=== PATIENT | female | born 1960 | race Caucasian/White ===

== ENCOUNTER 2017-10-04 12:37 | Inpatient (IN) | payer OTHER, SELFPAY ==
[~2017-10-04 12:37] MED LIST: Heparin 1,000 UNITS/ML VIAL ONE
[2017-10-04 13:48] LABS: #Eosinphils 0.4 thou/uL (0.0-0.7); #Lymphocytes 1.2 thou/uL (1.20-3.40); #Monocytes 0.5 thou/uL (0.11-0.59); #Neutrophils 2.8 thou/uL (1.40-6.50); %Basophils 0.7 % (0.0-1.0); %Eosinophils 7.6 % (0.0-10.0); %Monocytes 10.7 % (0.0-10.0); %Neutrophils 56.9 % (42.0-75.0); Hemoglobin 7.5 g/dL (12.0-16.0); Mean Corpuscular HGB CONC 31.8 g/dL (32.0-36.0); Mean Corpuscular Hemoglobin 31.2 pg (27.0-31.0); Mean Corpuscular Volume 98.1 fl (81.0-99.0); Mean Platelet Volume 7.1 fL (7.4-10.4); Platelet Count 139 thou/uL (130-400); RBC Distribution Width 16.4 % (11.5-14.5); Red Blood Cell (RBC) Count 2.39 mill/uL (4.20-5.40)
[2017-10-04 14:07] LABS: ALT (SGPT) 19 U/L (8-55); AST (SGOT) 14 U/L (5-34); Albumin 2.8 g/dL (3.5-5.0); Alkaline Phosphatase 41 U/L (40-150); Anion Gap 16 mmol/L (10-20); BUN (Urea Nitrogen) 74 mg/dL (9.8-20.1); Bilirubin, Total 0.4 mg/dL (0.2-1.2); Calc. Creatinine Clearance 0 mL/min (70-130); Calcium 8.3 mg/dL (7.8-10.44); Carbon Dioxide 15 mmol/L (22-29); Chloride 112 mmol/L (98-107); Estimated GFR-MDRD 5; Globulin 2.8 g/dL (2.4-3.5); Glucose 81 mg/dL (70-105); Potassium 5.9 mmol/L (3.5-5.1); Protein, Total 5.6 g/dL (6.0-8.3); Sodium 137 mmol/L (136-145)
[2017-10-04 14:11] LABS: CKMB 0.9 ng/mL (0-6.6); Troponin I 0.012 ng/mL (< 0.028)
[2017-10-04] MEDS ORDERED: Insulin Regular 300 UNITS/3 ML VIAL ONE (14:56)
[2017-10-04] MEDS ORDERED: Sodium Bicarb 50 MEQ/50 ML Abboject 8.4% SYRINGE ONE (14:56)
[2017-10-04] MEDS ORDERED: Calcium Chloride 1 GM/10 ML Abboject SYRINGE ONE ×2 (14:56→14:58)
[2017-10-04] MEDS ORDERED: Dextrose 50% Abboject 50 ML SYRINGE ONE (14:56)
[2017-10-04] MEDS ORDERED: Furosemide 40 MG/4 ML VIAL ONE (14:56)
[2017-10-04] MEDS ORDERED: CEFAZOLIN/Water 2 GM/20 ML SYRINGE SLOW IVP SCH (16:00)
--- NOTE | 2017-10-04 16:04 | HP ---
PRIMARY CARE PHYSICIAN: [facility]. REASON FOR ADMISSION: Acute on chronic kidney failure approach to end-stage renal disease, hyperkale gab. HISTORY OF PRESENT ILLNESS: A 57-year-old [place] female who has history of chronic kidney disease, h ypertension, and hypothyroidism who was recently admitted in [facility] in [facility] for worsening of kidney failure. At that time, patient had hyponatremia. She was treated with some hypertonic saline as wel l as tolvaptan therapy and her sodium was improved. Her renal function is running between 7-8 range. She was started on oral medication including sodium bicarbonate and other blood pressure medication as well as Renvela. Patient also has hospitalization there and required blood transfusion. At that time, the patient's c ondition was so severe, so she remained in hospital for several days and her trip back to [facility] was pos tponed. Once she little bit recovered from her condition, she flew back to [facility]. When she arrived here, she was feeling a little bit better, but she started feeling nausea. She was started feeling increasing edema and she was having itching. Her sleep is normal. She does not have any shortness of breath, but she feels fatigued, tired. She denies any chest pain, palpitation, diz ziness. She denies any orthopnea or PND. She denies any cough. She denies any fever or chills. Sh e denies any UTI symptoms. She denies any constipation, diarrhea, melena or hematochezia. Patient is taking all prescribed medication from [facility] regularly. She denies any excessive per potas sium food as well. The patient made appointment with Dr. Elizalde last week and that she had routine blood test done which s howed elevated potassium and elevated creatinine. She had another blood test yesterday and her potas sium was found with a 6.2 and her hemoglobin was also low and that is why Dr. Elizalde called her to come to the emergency room for admission. Today in our emergency room, patient's hemoglobin is 7.5, creatinine is 8.43, and potassium 5.9. Her BNP is 1347. Patient is being admitted for acute on chronic kidney failure and hyperkalemia. REVIEW OF SYSTEMS: The following complete review of systems was negative, unless otherwise mentioned in the HPI or below: Constitutional: Weight loss or gain, ability to conduct usual activities. Sk in: Rash, itching. Eyes: Double vision, pain. ENT/Mouth: Nose bleeding, neck stiffness, pain, te nderness. Cardiovascular: Palpitations, dyspnea on exertion, orthopnea. Respiratory: Shortness of breath, wheezing, cough, hemoptysis, fever or night sweats. Gastrointestinal: Poor appetite, abdom inal pain, heartburn, nausea, vomiting, constipation, or diarrhea. Genitourinary: Urgency, frequenc y, dysuria, nocturia. Musculoskeletal: Pain, swelling. Neurologic/Psychiatric: Anxiety, depressio n. Allergy/Immunologic: Skin rash, bleeding tendency. Please see my HPI for pertinent positive and negative. All other review of system reviewed and negat ryan except as mentioned in the HPI. Notably, patient is complaining of back pain, edema and generali zed weakness. PAST MEDICAL HISTORY: Chronic kidney failure, baseline chronic kidney disease stage 4, hypertension, hypothyroidism. PAST SURGICAL HISTORY: Hysterectomy and appendicectomy. PAST PSYCHIATRIC HISTORY: Reviewed and negative. SOCIAL HISTORY: Patient is . She lives at her daughter's home. She denies any tobacco, alco hol or illicit drug abuse. FAMILY HISTORY: No strong family history of premature coronary artery disease, stroke or cancer. No family history of ESRD. ALLERGIES: No known drug allergy. CURRENT HOME MEDICATIONS: Sodium bicarbonate 500 mg 3 times daily, metoprolol tartrate 50 mg daily, domperidone one tablet twice daily, Lasix 40 mg b.i.d., Renvela 800 mg t.i.d., cilnidipine 10 mg twic e daily, and Synthroid 125 mcg p.o. daily. EMERGENCY ROOM COURSE: Patient has received sodium bicarbonate 1 ampule, Lasix 40 mg, dextrose 50% o ne ampule, calcium gluconate 1 ampule and Humulin R 10 units. PHYSICAL EXAMINATION: VITAL SIGNS: On arrival, blood pressure 157/63, pulse 58, respiratory rate 18, temperature 97.8, sat uration 98% on room air, weight 63.5 kilograms. GENERAL: Patient is currently alert, awake, no obvious acute distress. Appears weak. HEAD: Normocephalic, atraumatic. Eyes: Pupils round, reactive to light. Extraocular muscle intact . Pale conjunctivae. ENT: Pale mucous membranes. No oral lesion, no pharyngeal erythema, no exudate. NECK: Supple, no JVD, no thyromegaly, no carotid bruit, no jugular venous distention. LUNGS: Clear to auscultation, no obvious rhonchi or rales though air entry reduced at base. CARDIAC: S1, S2 appears regular, soft systolic murmur noted, no gallop, no rub. ABDOMEN: Soft, bowel sounds present, nontender, nondistended. No organomegaly, no mass, no suprapub ic tenderness. BACK: Unremarkable, no CVA tenderness. EXTREMITIES: Upper extremity passive movement of all joints are normal. Lower extremity, bilateral pitting edema noted. Good distal pulsation. SKIN: No skin rash. HEMATOLOGICAL: No lymphadenopathy. PSYCHIATRIC: Normal affect. NEUROLOGIC: The patient is alert, oriented x3. Cranial nerves II-XII intact. Motor and sensation w ithin normal limits. No focal neurological deficit noted. SIGNIFICANT LABORATORY DATA: EKG showing sinus bradycardia. Chest x-ray will be ordered. ASSESSMENT AND PLAN: 1. Acute on chronic kidney failure, baseline chronic kidney disease stage 4, now approach to end-sta ge renal disease and associated with metabolic acidosis, hyperkalemia, and anemia of renal disease an d secondary hyperparathyroidism of renal origin. I spoke with Dr. Elizalde initiating dialysis. Dr. Leonel martines will be notified for temporary hemodialysis catheter placement and the patient will need initiati on of hemodialysis. human resources communications manager will be consulted to arrange outpatient hemodialysis. Hemodialysis , they will defer to Nephrology. The patient will need AV fistula before discharge, we will continue with Procrit with hemodialysis. We will also continue with Nephro-George one tablet p.o. daily and Re nvela 800 mg 3 times daily. We will check phosphorus, PTH level, urinalysis, urine sodium, creatinin e, urine protein as well as an ultrasound kidney. Nephrology will be consulted and will closely faina mcdaniel on telemetry floor. Once stabilized, then will consider transferring her to medical floor until she has outpatient hemodialysis arranged. 2. Anemia of renal disease. We will continue with Nephro-George one tablet p.o. daily along with ferr ous sulfate 325 mg p.o. daily and Procrit with hemodialysis. 3. Secondary hyperparathyroidism of renal origin. We will continue Renvela 800 mg 3 times daily. W e will check phosphorus level and PTH level. We will also check vitamin D level. 4. Metabolic acidosis due to renal failure. Patient is currently on sodium bicarbonate, which will continue while in hospital. Currently, patient is started on dialysis and that is why she may not ne ed sodium bicarbonate eventually. 5. Hyperkalemia due to metabolic acidosis and poor excretion from kidney disease. The patient simone back received a cocktail treatment for hyperkalemia in the emergency room. We will avoid potassium bisi d and patient will need dialysis. 6. Elevated BNP. We will obtain echocardiography and will do serial cardiac enzymes x3 to rule out acute coronary syndrome. 7. Hypothyroidism. We will continue Synthroid 125 mcg p.o. daily and we will check TSH tomorrow. 8. Hypertension. We will continue metoprolol 25 mg p.o. b.i.d. We will monitor on telemetry floor for any bradycardia. 9. Deep venous thrombosis prophylaxis. Heparin 5000 units subcu twice daily. 10. Gastrointestinal prophylaxis, Protonix 40 mg p.o. daily, Reglan p.r.n. basis for nausea. 11. Code status: The patient is FULL CODE. Patient's is surrogate decision maker. Disposition plan based on clinical course, we are expecting patient's stay in hospital more than 2 mi dnights. Plan of care discussed with the patient and patient's family member at bedside.
[2017-10-04 16:26] LABS: Phosphorus 7.4 mg/dL (2.3-4.7)
[2017-10-04 16:57] LABS: Ferritin 197.7 ng/mL (10-291)
[2017-10-04 16:58] LABS: Thyroid Stimulating Hormone 0.112 uIU/mL (0.35-4.94); Vitamin D, 25 Hydroxy 9.9 ng/ml (> 30.0)
[2017-10-04] MEDS ORDERED: Epoetin (ESRD) 10,000 UNITS/ML VIAL IVP SCH (17:00)
[2017-10-04] MEDS ORDERED: Ondansetron ODT 4 MG TAB PO PRN (17:59)
[2017-10-04] MEDS ORDERED: Mag-Al 1200 mg/1200 mg/30 ML UDCUP PO PRN (17:59)
[2017-10-04] MEDS ORDERED: Calcium Carbonate 500 MG ChewTAB PO PRN (17:59)
[2017-10-04] MEDS ORDERED: Metoclopramide HCl 10 MG TAB PO PRN (17:59)
[2017-10-04] MEDS ORDERED: Diabetic Tussin 200 MG/10 ML UDCUP PO PRN (17:59)
[2017-10-04] MEDS ORDERED: Ondansetron HCl/PF 4 MG/2 ML Vial IVP PRN (17:59)
[2017-10-04] MEDS ORDERED: Senokot 8.6 MG TAB PO PRN (17:59)
[2017-10-04] MEDS ORDERED: Zolpidem Tartrate 5 MG TAB PO PRN (17:59)
[2017-10-04] MEDS ORDERED: Loperamide HCl 2 MG CAP PO PRN (17:59)
[2017-10-04] MEDS ORDERED: Milk Of Magnesia 30 ML UDCUP PO PRN (17:59)
[2017-10-04] MEDS ORDERED: Acetaminophen 325 MG TAB PO PRN (17:59)
[2017-10-04] MEDS ORDERED: Loratadine 10 MG TAB PO PRN (17:59)
[2017-10-04] MEDS ORDERED: Eucerin (Mineral Oil/Petrolatum,White) 30 gm Jar TOP PRN (17:59)
[2017-10-04] MEDS ORDERED: Chloraseptic Spray 180 ml Bottle PO PRN (17:59)
[2017-10-04] MEDS ORDERED: hydrALAZINE 20 MG/ML VIAL SLOW IVP PRN (17:59)
[2017-10-04] MEDS ORDERED: Sodium Chloride 0.65% Nasal 44 ML BOT EA NARE PRN (17:59)
[2017-10-04] MEDS ORDERED: Artificial Tears 18 DROP/0.9 ML EA EYE PRN (17:59)
[2017-10-04] MEDS ORDERED: Epoetin (ESRD) 10,000 UNITS/ML VIAL SC SCH (18:15)
[2017-10-04] MEDS ORDERED: Sevelamer Carbonate 800 MG TAB PO SCH (18:15)
[2017-10-04 18:21] LABS: Hep B Core Total Ab Non-Reactive (NonReactive); Hep B Core Total Index 0.15 S/CO (0-0.79)
[2017-10-04 18:26] LABS: HBSAg Index 0.24 S/CO (0-0.99); Hep B Surf Ag Non-Reactive S/CO (NonReactive)
[2017-10-04 18:27] LABS: Hep C IgG Ab Non-Reactive (NonReactive); Hep C Index 0.14 S/CO (0-0.79)
[2017-10-04 19:06] LABS: HBSAB Concentration 562.86 mIU/mL; Hep B Surf AB Reactive (NonReactive)
--- NOTE | 2017-10-04 21:23 | OP ---
PREOPERATIVE DIAGNOSES: End-stage renal disease, hyperkalemia, need of dialysis access. POSTOPERATIVE DIAGNOSES: End-stage renal disease, hyperkalemia, need of dialysis access. PROCEDURE: Right femoral vein hemodialysis catheter, Trialysis. SURGEON: Delbert Padilla M.D. ANESTHESIA: 1% Xylocaine. PROCEDURE: At the patient's bedside in the emergency room, right groin clipped of hair, prepared wit h ChloraPrep, draped in routine fashion. 1% Xylocaine infiltrated into skin and subcutaneous tissue about the operative site. Trocar catheter cannulated the femoral vein. J-wire threaded, trocar cath eter removed, skin incised and enlarged sharply. Dilator small and medium placed and removed, and di stal port of the Trialysis catheter placed over the J-wire into the inferior vena cava and J-wire rem delmi. Catheter secured with 2 sutures of 3-0 nylon. Sterile dressing applied. Each port aspirated blood and flushed with heparinized saline solution.
--- NOTE | 2017-10-04 21:30 | CON ---
DATE OF CONSULTATION: 10/04/2017 NEPHROLOGY CONSULT REASON FOR CONSULTATION: The patient has hyperkalemia. HISTORY OF PRESENT ILLNESS: This is a very pleasant 57-year-old female with a history of CKD stage 5 for more than 2 years, presented to the hospital with increasing uremia, nausea and vomiting. The p atient's baseline creatinine was 5 and has increased to 8 with a potassium of 6.1, so dialysis was ad vised the patient plan to start dialysis. The patient has had chronic nausea and vomiting, and very poor appetite and has been losing weight. The patient denies any headache, numbness, tingling or wea kness. PAST MEDICAL HISTORY: Significant for hypertension, diabetes mellitus, chronic kidney disease stage 5, hyperlipidemia, hysterectomy, appendectomy, history of hypothyroidism. SOCIAL HISTORY: No alcohol or drug use. FAMILY HISTORY: Negative ESRD. ALLERGIES: Reviewed. HOSPITAL MEDICATIONS: List reviewed. REVIEW OF SYSTEMS: Fifteen point review of systems was performed and negative except as noted above. GENERAL: Weakness- HEAD: Headache- NECK: No swelling or lumps. NOSE: No epistaxis or discharge. EYES: No diplopia or pain. RESPIRATORY: Dyspnea- CARDIOVASCULAR: Chest pain- GASTROINTESTINAL: Nausea- /PERSONNEL MONITOR: Hematuria- MUSCULOSKELETAL: No joint pain. NEUROPSYCHIATRIC SYSTEMS: No suicidal ideation. No ideation. SKIN: Denies any rash or ulcer. CONSTITUTIONAL: No fever or chills. PHYSICAL EXAMINATION: GENERAL: Patient is awake, alert. VITAL SIGNS: Afebrile, pulse 70, breathing 16, blood pressure 170/90. GENERAL APPEARANCE AND MENTAL STATUS: Fair. HEAD/NECK: Normocephalic. Atraumatic. EYES: EOMI. No deformity. EARS: Clear. No ulcers. NOSE: Intact. No lesions. MOUTH: Clear. No discharge. THROAT: Clear. No exudate. LUNGS: Clear. No crackles. CARDIAC: S1, S2. No rub. ABDOMEN: Benign. BS+. GENITALIA/RECTUM: Tilley absent. BACK/EXTREMITIES: Edema 0+ Ulcer- NEUROLOGICAL: Alert and motor intact. SKIN: Rash- Bruise- LYMPHATICS: Edema- Ulcer- LABORATORY: Show hemoglobin 7.5, potassium 5.9, bicarbonate 15. ASSESSMENT AND RECOMMENDATIONS: 1. Stage 5 chronic kidney disease with estimated GFR 5 mL per minute with uremia, nausea, vomiting, acidosis and hyperkalemia. We will plan urgent dialysis catheter will be placed. 2. Anemia, plan transfusion. 3. Hypertension, plan ultrafiltration. Overall, prognosis is poor. Risks versus benefits of dialys is were discussed with the patient and all questions were answered.
[2017-10-04] MEDS: Heparin 5,000 UNITS/ML VIAL SC SCH (21:37)
[2017-10-04] MEDS: Metoprolol Tartrate 25 MG TAB PO SCH (21:37)
--- NOTE | 2017-10-04 22:02 | HP ---
HISTORY OF PRESENT ILLNESS: Pauline Harrison is a 57-year-old female, non-Czech speaking, [place] an d has had known chronic kidney disease, followed by Dr. Elizalde. She saw Dr. Elizalde in the office today. He is in the emergency room to initiate dialysis. Potassium 6.1, hemoglobin 7. Plan is to place a temporary hemodialysis catheter today, initiate dialysis. She has an IV in her left hand. We will o rder no IVs or blood draws in her arms. All blood draws through her central line groin Trialysis cat heter. Plan on Saturday, placement of hemodialysis catheter, cuffed tunnel, possible central line, rig ht or left arm fistula pending vein mapping. ALLERGIES: None. TOBACCO: None. ALCOHOL: None. MEDICATIONS: List not available. Daughter does not recall. PAST MEDICAL HISTORY: Hypertension, chronic kidney disease. PAST SURGICAL HISTORY: Appendectomy, hysterectomy and bilateral salpingo-oophorectomy. She has neve r had a colonoscopy, never has had a mammography. Note, Dr. Elizalde saw her 2 years ago urged considera tion for fistula placement, but due to her insurance financial reasons, she was noncompliant. PHYSICAL EXAMINATION: VITAL SIGNS: Blood pressure 150/70, respiratory rate 18. LUNGS: Clear to auscultation. CARDIAC: Regular rate and rhythm without murmur or gallop. ABDOMEN: Soft, nontender. EXTREMITIES: Palpable radial pulses. IV left hand. LABORATORY DATA: White count 5, hemoglobin 7.5. Basic metabolic profile normal. BNP 1347. ASSESSMENT AND PLAN: End-stage renal disease. We will plan placement of a temporary dialysis cathet er today in the right groin. We will plan placement of a definitive cuffed tunnel dialysis catheter from central line on Saturday along with the fistula pending vein mapping. Risks and benefits explaine d. Questions answered.
--- NOTE | 2017-10-04 22:24 | RAD ---
CHEST TWO VIEW 10/04/17 HISTORY: Dyspnea. COMPARISON: Chest radiograph 01/04/17. FINDINGS: Heart size at upper limits of normal. No pneumothorax. No focal air space consolidation. No acute osseous abnormality. IMPRESSION: Heart size upper limits normal. POS: [facility]
[2017-10-05 01:43] LABS: Bilirubin Negative (Negative); Blood, Urine Small (Negative); Clarity CLEAR (Clear); Glucose, Urine (Dipstick) 250 mg/dL (Negative); Leukocyte Negative (Negative); Nitrite Negative (Negative); Protein, Urine (Dipstick) 300 mg/dL (Neg-Trace); Specific Gravity, Urine 1.008 (1.002-1.036); Urobilinogen 0.2 mg/dL (0.2-1.0); pH, Urine 7.5 (5.0-9.0)
[2017-10-05 01:46] LABS: Bacteria/HPF None Seen HPF (None Seen); Hyaline Casts/LPF 0-3 HYALINE CAST LPF (0-3 Hyaline); RBC/HPF 0-3 HPF (0-3); Squamous Epithelial 0-3 HPF (0-3); WBC/HPF 0-3 HPF (0-3)
[2017-10-05 02:00] LABS: Sodium, Urine 91 mmol/L (Not Available)
[2017-10-05 02:14] LABS: Protein, Urine Random Quant 238 mg/dL
[2017-10-05 05:33] LABS: ALT (SGPT) 16 U/L (8-55); AST (SGOT) 14 U/L (5-34); Albumin 2.6 g/dL (3.5-5.0); Alkaline Phosphatase 41 U/L (40-150); Anion Gap 11 mmol/L (10-20); BUN (Urea Nitrogen) 50 mg/dL (9.8-20.1); Bilirubin, Total 0.5 mg/dL (0.2-1.2); Calc. Creatinine Clearance 11 mL/min (70-130); Calcium 8.5 mg/dL (7.8-10.44); Carbon Dioxide 26 mmol/L (22-29); Cardiac Risk 3.1 (Less than 4.5); Chloride 109 mmol/L (98-107); Cholesterol 114 mg/dl (< 200 Desired); Estimated GFR-MDRD 8; Globulin 2.5 g/dL (2.4-3.5); Glucose 135 mg/dL (70-105); HDL Cholesterol 37 mg/dL (>60 Neg Risk); LDL Cholesterol, Calculated 62 mg/dL; Potassium 4.7 mmol/L (3.5-5.1); Protein, Total 5.1 g/dL (6.0-8.3); Sodium 141 mmol/L (136-145); Triglycerides 76 mg/dL (Less than 150)
[2017-10-05] MEDS: Levothyroxine Sodium 125 MCG TAB PO SCH (05:36)
[2017-10-05 06:16] LABS: #Eosinphils 0.1 thou/uL (0.0-0.7); #Lymphocytes 1.2 thou/uL (1.20-3.40); #Monocytes 0.6 thou/uL (0.11-0.59); #Neutrophils 2.8 thou/uL (1.40-6.50); %Basophils 0.5 % (0.0-1.0); %Eosinophils 2.3 % (0.0-10.0); %Lymphocytes 24.9 % (21.0-51.0); %Monocytes 12.2 % (0.0-10.0); %Neutrophils 60.1 % (42.0-75.0); Hemoglobin 8.3 g/dL (12.0-16.0); Mean Corpuscular HGB CONC 32.9 g/dL (32.0-36.0); Mean Corpuscular Hemoglobin 30.3 pg (27.0-31.0); Mean Corpuscular Volume 92.2 fl (81.0-99.0); Mean Platelet Volume 7.2 fL (7.4-10.4); Platelet Count 120 thou/uL (130-400); RBC Distribution Width 15.7 % (11.5-14.5); Red Blood Cell (RBC) Count 2.73 mill/uL (4.20-5.40); White Blood Cell (WBC) Count 4.6 thou/uL (4.8-10.8)
[2017-10-05 08:01] LABS: Free T4 (Free Thyroxine) 0.89 ng/dL (0.70-1.48)
[2017-10-05] MEDS ORDERED: Prevnar 13-Val Conj/PF 0.5 ML SYRINGE IM ONE (09:00)
--- NOTE | 2017-10-05 09:16 | PDOC.PN ---
- Subjective Encounter Start Date: 10/05/17 Encounter Start Time: 07:30 -: old records requested/rev Patient seen and examined for ESRD. No new complaints. No overnight events - Objective Resuscitation Status: Resuscitation Status FULL:Full Resuscitation MAR Reviewed: Yes Vital Signs & Weight: Vital Signs (12 hours) Temp Pulse Resp BP Pulse Ox 10/05/17 07:23 98.3 F 69 12 164/76 H 95 10/05/17 03:57 98.3 F 68 18 152/84 H 96 10/04/17 23:42 98.3 F 75 20 168/79 H 99 10/04/17 21:35 97.5 F L 68 18 165/79 H 100 Weight Weight 133 lb I&O: 10/04/17 10/05/17 10/06/17 06:59 06:59 06:59 Intake Total 830 Output Total 1100 Balance -270 Result Diagrams: 10/05/17 04:20 10/05/17 04:20 Radiology Reviewed by me: Yes EKG Reviewed by me: Yes (nsr) Phys Exam - Physical Examination Constitutional: NAD HEENT: PERRLA, moist MMs, sclera anicteric Neck: no JVD, supple Respiratory: no wheezing, no rales, no rhonchi Cardiovascular: RRR, no significant murmur, no rub Gastrointestinal: soft, non-tender, no distention, positive bowel sounds Musculoskeletal: no edema, pulses present Neurological: non-focal, normal sensation, moves all 4 limbs Lymphatic: no nodes Psychiatric: normal affect, A&O x 3 Skin: no rash, normal turgor Dx/Plan (1) Acute worsening of stage 4 chronic kidney disease Code(s): N28.9 - DISORDER OF KIDNEY AND URETER, UNSPECIFIED; N18.4 - CHRONIC KIDNEY DISEASE, STAGE 4 (SEVERE) Status: Acute (2) Elevated brain natriuretic peptide (BNP) level Code(s): R79.89 - OTHER SPECIFIED ABNORMAL FINDINGS OF BLOOD CHEMISTRY Status : Acute (3) Hyperkalemia, diminished renal excretion Code(s): E87.5 - HYPERKALEMIA Status: Acute (4) Hypoalbuminemia Code(s): E88.09 - OTH DISORDERS OF PLASMA-PROTEIN METABOLISM, NEC Status: Acute (5) Metabolic acidosis Code(s): E87.2 - ACIDOSIS Status: Acute (6) Nephrotic range proteinuria Code(s): R80.9 - PROTEINURIA, UNSPECIFIED Status: Acute (7) Vitamin D deficiency Code(s): E55.9 - VITAMIN D DEFICIENCY, UNSPECIFIED Status: Acute (8) Anemia of renal disease Code(s): D63.1 - ANEMIA IN CHRONIC KIDNEY DISEASE Status: Chronic (9) Hypertension Code(s): I10 - ESSENTIAL (PRIMARY) HYPERTENSION Status: Chronic (10) Hypothyroidism Code(s): E03.9 - HYPOTHYROIDISM, UNSPECIFIED Status: Chronic (11) Secondary hyperparathyroidism of renal origin Code(s): N25.81 - SECONDARY HYPERPARATHYROIDISM OF RENAL ORIGIN Status: Chronic - Plan cont current plan of care, plan discussed w/ family * s/p HD after temporary HD catheter placement * tunneled HD catheter and AV fistula placement on saturday * HD as per nephrology * add calcitriol * T3 and T4 is OK, TSH is low, will need repeat testing after discharge * social work for outpt HD arrangement * echo today * medication reviewed as below * symptomatic treatment * discussed with family. Review of Systems - Review of Systems Eyes: negative: Pain, Vision Change, Conjunctivae Inflammation, Eyelid Inflammation, Redness, Other ENT: negative: Ear Pain, Ear Discharge, Nose Pain, Nose Discharge, Nose Congestion, Mouth Pain, Mouth Swelling, Throat Pain, Throat Swelling, Other Respiratory: negative: Cough, Dry, Shortness of Breath, Hemoptysis, SOB with Excertion, Pleuritic Pain, Sputum, Wheezing Cardiovascular: negative: chest pain, palpitations, orthopnea, paroxysmal nocturnal dyspnea, edema, light headedness, other Gastrointestinal: negative: Nausea, Vomiting, Abdominal Pain, Diarrhea, Constipation, Melena, Hematochezia, Other Genitourinary: negative: Dysuria, Frequency, Incontinence, Hematuria, Retention , Other Musculoskeletal: negative: Neck Pain, Shoulder Pain, Arm Pain, Back Pain, Hand Pain, Leg Pain, Foot Pain, Other Skin: negative: Rash, Lesions, Parker, Bruising, Other - Medications/Allergies Allergies/Adverse Reactions: Allergies Allergy/AdvReac Type Severity Reaction Status Date / Time No Known Allergies Allergy Unverified 10/04/17 16:16 Medications: Current Medications Acetaminophen (Tylenol) 650 mg PO Q4H PRN PRN Reason: Headache/Fever or Pain Hydrocodone Bitart/Acetaminophen ([place] 5/325) 1 tab PO Q4H PRN PRN Reason: Moderate Pain (4-6) Al Hydroxide/Mg Hydroxide (Maalox) 30 ml PO Q6H PRN PRN Reason: Heartburn or Indigestion Artificial Tears (Tears Naturale) 0 drop EA EYE PRN PRN PRN Reason: Dry Eyes Calcitriol (Rocaltrol) 0.25 mcg PO DAILY [facility] Calcium Carbonate (Tums) 1,000 mg PO Q4H PRN PRN Reason: Heartburn or Indigestion Cefazolin Sodium (Ancef) 2 gm SLOW IVP ONCALL-OR [facility] Stop: 10/05/17 16:01 Ferrous Sulfate (Feosol) 325 mg PO QAM-WM [facility] Guaifenesin (Robitussin Sf) 200 mg PO Q4H PRN PRN Reason: Cough Heparin Sodium (Porcine) (Heparin) 5,000 units SC BID [facility] Last Admin: 10/04/17 21:37 Dose: 5,000 units Hydralazine HCl (Apresoline) 10 mg SLOW IVP Q4H PRN PRN Reason: Systolic BP > 180 Levothyroxine Sodium (Synthroid) 125 mcg PO 0600 [facility] Last Admin: 10/05/17 05:36 Dose: 125 mcg Loperamide HCl (Imodium) 2 mg PO PRN PRN PRN Reason: Diarrhea/Loose Stools Loratadine (Claritin) 10 mg PO DAILYPRN PRN PRN Reason: Sinus Symptoms Magnesium Hydroxide (Milk Of Magnesium) 30 ml PO DAILYPRN PRN PRN Reason: Constipation Metoclopramide HCl (Reglan) 10 mg PO ACHS PRN PRN Reason: Nausea Metoprolol Tartrate (Lopressor) 25 mg PO BID [facility] Last Admin: 10/04/17 21:37 Dose: 25 mg Mineral Oil/White Petrolatum (Eucerin Cream) 0 gm TOP BIDPRN PRN PRN Reason: Dry Skin Ondansetron HCl (Zofran Odt) 4 mg PO Q6H PRN PRN Reason: Nausea/Vomiting Ondansetron HCl (Zofran) 4 mg IVP Q6H PRN PRN Reason: Nausea/Vomiting Pantoprazole Sodium (Protonix) 40 mg PO DAILY [facility] Phenol (Chloraseptic [place] 180 Ml Bot) 0 ml PO PRN PRN PRN Reason: Sore Throat Senna (Senokot) 2 tab PO HSPRN PRN PRN Reason: Constipation Sevelamer Carbonate (Renvela) 800 mg PO TID-WM [facility] Sodium Chloride ([place] Nasal [place] 0.65%) 0 ml EA NARE QIDPRN PRN PRN Reason: Nasal Congestion Vitamin B Complex/Vit C/Folic Acid (Nephro-George Tablet) 1 tab PO DAILY [facility] Zolpidem Tartrate (Ambien) 5 mg PO HSPRN PRN PRN Reason: Insomnia
--- NOTE | 2017-10-05 09:18 | ULT ---
RENAL SONOGRAM: HISTORY: End stage renal disease. FINDINGS: The right kidney is 9.1 cm and contains multiple cysts measuring up to 2.2 cm. No hydronephrosis or solid mass. Left kidney is 9.3 cm and also contains cortical cysts measuring up to 2.6 cm. No solid mass or hydronephrosis. Urinary bladder unremarkable. IMPRESSION: Renal cysts. No evidence of urinary tract obstruction. POS: [facility]
--- NOTE | 2017-10-05 10:02 | ULT ---
VENOUS DUPLEX SONOGRAM BILATERAL UPPER EXTREMITIES FOR VEIN MAPPING. HISTORY: Renal failure. Need for hemodialysis access. FINDINGS: Each internal jugular and subclavian vein were evaluated along with each subclavian, axillary, brachi al, cephalic, and basilic vein. Good color and spectral Doppler flow. Measurements are as follows: RIGHT: VESSEL Brachial artery 4 mm Radial artery 2 mm Ulnar artery 2 mm Cephalic Vein: Proximal humerus 1 mm Mid humerus 1 mm Distal humerus 1 mm Antecubital fossa 2 mm Proximal forearm 1 mm Mid forearm 1 mm Distal forearm 2 mm Basilic Vein: Proximal humerus 4 mm Mid humerus 2 mm Distal humerus 2 mm Antecubital fossa 1 mm Proximal forearm, mid and distal forearm not seen. LEFT: VESSEL: Brachial artery 4 mm Radial artery 2 mm Ulnar artery 1 mm Cephalic Vein: Proximal humerus 2 mm Mid humerus 2 mm Distal humerus 2 mm Antecubital fossa 2 mm Proximal forearm 2 mm Mid forearm 2 mm Distal forearm 1 mm Basilic Vein: Proximal humerus 4 mm Mid humerus 3 mm Distal humerus 3 mm Antecubital fossa 3 mm Proximal forearm 2 mm Mid forearm and distal forearm not seen. IMPRESSION: Patent vascular structures within each upper extremity, with venous measurements as detailed above. POS: [facility]
[2017-10-05] MEDS ORDERED: Tuberculin PPD 0.1 ML VIAL I-DERMAL SCH (12:00)
[2017-10-05] MEDS: Sevelamer Carbonate 800 MG TAB PO SCH ×3 (12:11→19:30)
[2017-10-05] MEDS: Metoprolol Tartrate 25 MG TAB PO SCH ×2 (12:49→21:03)
[2017-10-05] MEDS: Calcitriol 0.25 MCG CAP PO SCH (12:49)
--- NOTE | 2017-10-05 12:49 | PRG ---
DATE OF SERVICE: 10/05/2017 SUBJECTIVE: A 57-year-old female being seen for end-stage renal disease. The patient denies any nausea, vomiting or chest pain. PHYSICAL EXAMINATION: GENERAL: Patient is awake, alert. VITAL SIGNS: Afebrile, pulse 60, breathing at 16, blood pressure 152/80. GENERAL APPEARANCE AND MENTAL STATUS: Fair. HEAD/NECK: Normocephalic. Atraumatic. EYES: EOMI. No deformity. EARS: Clear. No ulcers. NOSE: Intact. No lesions. MOUTH: Clear. No discharge. THROAT: Clear. No exudate. LUNGS: Clear. No crackles. CARDIAC: S1, S2. No rub. ABDOMEN: Benign. BS+. GENITALIA/RECTUM: Tilley absent. BACK/EXTREMITIES: Edema 0+ Ulcer- NEUROLOGICAL: Alert and motor intact. SKIN: Rash- Bruise- LYMPHATICS: Edema- Ulcer- ASSESSMENT: 1. Anemia, status post transfusion, stable. 2. Hypertension, stable. 3. ESRD jane HD today. Discharge planning, outpatient dialysis workup has been initiated. JOSETTED
[2017-10-05] MEDS: Folic Acid/Vit B Comp W-C PO SCH (12:50)
[2017-10-05] MEDS: Heparin 5,000 UNITS/ML VIAL SC SCH ×2 (12:53→21:03)
[2017-10-05] MEDS: Ferrous Sulfate 325 MG TAB PO SCH (12:58)
[2017-10-06] MEDS: HYDROcodone/Acetaminophen 5/325 mg Tablet PO PRN (03:30)
[2017-10-06] MEDS: Levothyroxine Sodium 125 MCG TAB PO SCH (05:43)
[2017-10-06] MEDS ORDERED: hydrOXYzine 10 MG TAB PO PRN (06:13)
--- NOTE | 2017-10-06 08:29 | PDOC.PN ---
- Subjective Encounter Start Date: 10/06/17 Encounter Start Time: 07:00 Patient seen and examined ESRD. No new complaints. No overnight events - Objective Resuscitation Status: Resuscitation Status FULL:Full Resuscitation MAR Reviewed: Yes Vital Signs & Weight: Vital Signs (12 hours) Temp Pulse Resp BP Pulse Ox 10/06/17 03:41 98.3 F 67 18 156/73 H 97 10/06/17 00:00 98.4 F 71 19 159/74 H 99 Weight Admit Weight 133 lb 9.6 oz Weight 119 lb 14.903 oz I&O: 10/05/17 10/06/17 10/07/17 06:59 06:59 06:59 Intake Total 830 360 Output Total 1100 300 Balance -270 60 Result Diagrams: 10/05/17 04:20 10/05/17 04:20 EKG Reviewed by me: Yes (svt ) Phys Exam - Physical Examination Constitutional: NAD HEENT: PERRLA, moist MMs, sclera anicteric Neck: no JVD, supple Respiratory: no wheezing, no rales, no rhonchi Cardiovascular: RRR, no significant murmur, no rub Gastrointestinal: soft, non-tender, no distention, positive bowel sounds Musculoskeletal: no edema, pulses present right groin trilysis catheter Neurological: non-focal, normal sensation, moves all 4 limbs Psychiatric: normal affect, A&O x 3 Skin: no rash, normal turgor Dx/Plan (1) Acute worsening of stage 4 chronic kidney disease Code(s): N28.9 - DISORDER OF KIDNEY AND URETER, UNSPECIFIED; N18.4 - CHRONIC KIDNEY DISEASE, STAGE 4 (SEVERE) Status: Acute (2) Elevated brain natriuretic peptide (BNP) level Code(s): R79.89 - OTHER SPECIFIED ABNORMAL FINDINGS OF BLOOD CHEMISTRY Status : Acute (3) Hyperkalemia, diminished renal excretion Code(s): E87.5 - HYPERKALEMIA Status: Acute (4) Hypoalbuminemia Code(s): E88.09 - OTH DISORDERS OF PLASMA-PROTEIN METABOLISM, NEC Status: Acute (5) Metabolic acidosis Code(s): E87.2 - ACIDOSIS Status: Acute (6) Nephrotic range proteinuria Code(s): R80.9 - PROTEINURIA, UNSPECIFIED Status: Acute (7) Vitamin D deficiency Code(s): E55.9 - VITAMIN D DEFICIENCY, UNSPECIFIED Status: Acute (8) Anemia of renal disease Code(s): D63.1 - ANEMIA IN CHRONIC KIDNEY DISEASE Status: Chronic (9) Hypertension Code(s): I10 - ESSENTIAL (PRIMARY) HYPERTENSION Status: Chronic (10) Hypothyroidism Code(s): E03.9 - HYPOTHYROIDISM, UNSPECIFIED Status: Chronic (11) Secondary hyperparathyroidism of renal origin Code(s): N25.81 - SECONDARY HYPERPARATHYROIDISM OF RENAL ORIGIN Status: Chronic - Plan cont current plan of care, plan discussed w/ family, administrator social welfare * tomorrow tunneled HD catheter and AVF * HD as per nephrology * echo result pending * she had asymptomatic SVT * continue metoprolol * medication reviewed as below * symptomatic treatment * discussed with family. Review of Systems - Review of Systems Eyes: negative: Pain, Vision Change, Conjunctivae Inflammation, Eyelid Inflammation, Redness, Other ENT: negative: Ear Pain, Ear Discharge, Nose Pain, Nose Discharge, Nose Congestion, Mouth Pain, Mouth Swelling, Throat Pain, Throat Swelling, Other Respiratory: negative: Cough, Dry, Shortness of Breath, Hemoptysis, SOB with Excertion, Pleuritic Pain, Sputum, Wheezing Cardiovascular: negative: chest pain, palpitations, orthopnea, paroxysmal nocturnal dyspnea, edema, light headedness, other Gastrointestinal: negative: Nausea, Vomiting, Abdominal Pain, Diarrhea, Constipation, Melena, Hematochezia, Other Genitourinary: negative: Dysuria, Frequency, Incontinence, Hematuria, Retention , Other Musculoskeletal: negative: Neck Pain, Shoulder Pain, Arm Pain, Back Pain, Hand Pain, Leg Pain, Foot Pain, Other Skin: negative: Rash, Lesions, Parker, Bruising, Other - Medications/Allergies Allergies/Adverse Reactions: Allergies Allergy/AdvReac Type Severity Reaction Status Date / Time No Known Allergies Allergy Unverified 10/04/17 16:16 Medications: Current Medications Acetaminophen (Tylenol) 650 mg PO Q4H PRN PRN Reason: Headache/Fever or Pain Last Admin: 10/06/17 01:43 Dose: 650 mg Hydrocodone Bitart/Acetaminophen (Leopold 5/325) 1 tab PO Q4H PRN PRN Reason: Moderate Pain (4-6) Last Admin: 10/06/17 03:30 Dose: 1 tab Al Hydroxide/Mg Hydroxide (Maalox) 30 ml PO Q6H PRN PRN Reason: Heartburn or Indigestion Artificial Tears (Tears Naturale) 0 drop EA EYE PRN PRN PRN Reason: Dry Eyes Calcitriol (Rocaltrol) 0.25 mcg PO DAILY [facility] Last Admin: 10/05/17 12:49 Dose: 0.25 mcg Calcium Carbonate (Tums) 1,000 mg PO Q4H PRN PRN Reason: Heartburn or Indigestion Ferrous Sulfate (Feosol) 325 mg PO QAM-WM [facility] Last Admin: 10/05/17 12:58 Dose: 325 mg Guaifenesin (Robitussin Sf) 200 mg PO Q4H PRN PRN Reason: Cough Heparin Sodium (Porcine) (Heparin) 5,000 units SC BID [facility] Last Admin: 10/05/17 21:03 Dose: 5,000 units Hydralazine HCl (Apresoline) 10 mg SLOW IVP Q4H PRN PRN Reason: Systolic BP > 180 Hydroxyzine HCl (Atarax) 10 mg PO Q8H PRN PRN Reason: Itching Levothyroxine Sodium (Synthroid) 125 mcg PO 0600 [facility] Last Admin: 10/06/17 05:43 Dose: 125 mcg Loperamide HCl (Imodium) 2 mg PO PRN PRN PRN Reason: Diarrhea/Loose Stools Loratadine (Claritin) 10 mg PO DAILYPRN PRN PRN Reason: Sinus Symptoms Magnesium Hydroxide (Milk Of Magnesium) 30 ml PO DAILYPRN PRN PRN Reason: Constipation Metoclopramide HCl (Reglan) 10 mg PO ACHS PRN PRN Reason: Nausea Metoprolol Tartrate (Lopressor) 25 mg PO BID [facility] Last Admin: 10/05/17 21:03 Dose: 25 mg Mineral Oil/White Petrolatum (Eucerin Cream) 0 gm TOP BIDPRN PRN PRN Reason: Dry Skin Read Ppd Test Site 0 each PO 1200 [facility] Stop: 10/08/17 23:59 Ondansetron HCl (Zofran Odt) 4 mg PO Q6H PRN PRN Reason: Nausea/Vomiting Ondansetron HCl (Zofran) 4 mg IVP Q6H PRN PRN Reason: Nausea/Vomiting Pantoprazole Sodium (Protonix) 40 mg PO DAILY [facility] Last Admin: 10/05/17 12:50 Dose: 40 mg Phenol (Chloraseptic [place] 180 Ml Bot) 0 ml PO PRN PRN PRN Reason: Sore Throat Senna (Senokot) 2 tab PO HSPRN PRN PRN Reason: Constipation Sevelamer Carbonate (Renvela) 800 mg PO TID-[facility] Last Admin: 10/05/17 19:30 Dose: 800 mg Sodium Chloride (Leslie Nasal [place] 0.65%) 0 ml EA NARE QIDPRN PRN PRN Reason: Nasal Congestion Vitamin B Complex/Vit C/Folic Acid (Nephro-George Tablet) 1 tab PO DAILY [facility] Last Admin: 10/05/17 12:50 Dose: 1 tab Zolpidem Tartrate (Ambien) 5 mg PO HSPRN PRN PRN Reason: Insomnia
[2017-10-06] MEDS: Folic Acid/Vit B Comp W-C PO SCH (09:44)
[2017-10-06] MEDS: Calcitriol 0.25 MCG CAP PO SCH (09:44)
[2017-10-06] MEDS: Sevelamer Carbonate 800 MG TAB PO SCH ×3 (09:44→19:08)
[2017-10-06] MEDS: Ferrous Sulfate 325 MG TAB PO SCH (09:44)
[2017-10-06] MEDS: Metoprolol Tartrate 25 MG TAB PO SCH ×2 (09:45→20:34)
[2017-10-06] MEDS: Heparin 5,000 UNITS/ML VIAL SC SCH (09:45)
--- NOTE | 2017-10-06 12:47 | PRG ---
DATE OF SERVICE: 10/06/2017 SUBJECTIVE: This is a 57-year-old female being seen for end-stage renal disease. The patient denies any nausea, vomiting or chest pain. OBJECTIVE: GENERAL: Patient is awake, alert. VITAL SIGNS: Afebrile, pulse 68, breathing 16, blood pressure 132/67. GENERAL APPEARANCE AND MENTAL STATUS: Fair. HEAD/NECK: Normocephalic. Atraumatic. EYES: EOMI. No deformity. EARS: Clear. No ulcers. NOSE: Intact. No lesions. MOUTH: Clear. No discharge. THROAT: Clear. No exudate. LUNGS: Clear. No crackles. CARDIAC: S1, S2. No rub. ABDOMEN: Benign. BS+. GENITALIA/RECTUM: Tilley absent. BACK/EXTREMITIES: Edema 0+ Ulcer- NEUROLOGICAL: Alert and motor intact. SKIN: Rash- Bruise- LYMPHATICS: Edema- Ulcer- LABORATORY DATA: Show hemoglobin 8.3. ASSESSMENT AND RECOMMENDATIONS: 1. Stage 5 chronic kidney disease. Continue hemodialysis. 2. Hypertension, stable. 3. Anemia, stable. 4. Medication based on glomerular filtration rate appropriate.
[2017-10-07] MEDS: HYDROcodone/Acetaminophen 5/325 mg Tablet PO PRN (00:12)
[2017-10-07 05:40] LABS: Albumin 2.5 g/dL (3.5-5.0); Anion Gap 10 mmol/L (10-20); BUN (Urea Nitrogen) 41 mg/dL (9.8-20.1); Calc. Creatinine Clearance 11 mL/min (70-130); Calcium 8.6 mg/dL (7.8-10.44); Carbon Dioxide 25 mmol/L (22-29); Chloride 107 mmol/L (98-107); Estimated GFR-MDRD 9; Glucose 94 mg/dL (70-105); Phosphorus 4.5 mg/dL (2.3-4.7); Potassium 4.7 mmol/L (3.5-5.1); Sodium 137 mmol/L (136-145)
[2017-10-07] MEDS: Levothyroxine Sodium 125 MCG TAB PO SCH (05:45)
[2017-10-07 05:50] LABS: #Eosinphils 0.3 thou/uL (0.0-0.7); #Lymphocytes 1.8 thou/uL (1.20-3.40); #Monocytes 0.6 thou/uL (0.11-0.59); #Neutrophils 2.5 thou/uL (1.40-6.50); %Basophils 0.8 % (0.0-1.0); %Eosinophils 6.3 % (0.0-10.0); %Lymphocytes 33.7 % (21.0-51.0); %Monocytes 11.8 % (0.0-10.0); %Neutrophils 47.5 % (42.0-75.0); Hemoglobin 8.3 g/dL (12.0-16.0); Mean Corpuscular HGB CONC 32.8 g/dL (32.0-36.0); Mean Corpuscular Volume 94.5 fl (81.0-99.0); Mean Platelet Volume 6.9 fL (7.4-10.4); Platelet Count 110 thou/uL (130-400); RBC Distribution Width 15.8 % (11.5-14.5); Red Blood Cell (RBC) Count 2.66 mill/uL (4.20-5.40); White Blood Cell (WBC) Count 5.3 thou/uL (4.8-10.8)
[2017-10-07] MEDS: Amlodipine 10 MG TAB PO SCH (08:59)
[2017-10-07] MEDS: Metoprolol Tartrate 25 MG TAB PO SCH ×2 (09:00→20:59)
[2017-10-07] MEDS: Calcitriol 0.25 MCG CAP PO SCH (09:00)
[2017-10-07] MEDS: Ferrous Sulfate 325 MG TAB PO SCH (09:00)
[2017-10-07] MEDS: Folic Acid/Vit B Comp W-C PO SCH (09:00)
[2017-10-07] MEDS: Sevelamer Carbonate 800 MG TAB PO SCH ×3 (09:00→17:52)
--- NOTE | 2017-10-07 10:18 | PDOC.PN ---
- Subjective Encounter Start Date: 10/07/17 Encounter Start Time: 07:20 Patient seen and examined for ESRD. c/o headache last night and she did not sleep well. No overnight events - Objective Resuscitation Status: Resuscitation Status FULL:Full Resuscitation MAR Reviewed: Yes Vital Signs & Weight: Vital Signs (12 hours) Temp Pulse Resp BP BP Pulse Ox 10/07/17 08:00 97.9 F 69 18 99 10/07/17 07:35 97.9 F 69 18 167/83 H 99 10/07/17 03:23 98.5 F 71 15 149/70 H 97 10/07/17 00:00 98.0 F 74 17 177/88 H 95 Weight Admit Weight 133 lb 9.6 oz Weight 119 lb 14.903 oz I&O: 10/06/17 10/07/17 10/08/17 06:59 06:59 06:59 Intake Total 360 1200 Output Total 300 1400 Balance 60 -200 Result Diagrams: 10/07/17 05:01 10/07/17 05:01 Radiology Reviewed by me: Yes (echo- diastolic dysfunction) EKG Reviewed by me: Yes (nsr) Phys Exam - Physical Examination Constitutional: NAD HEENT: PERRLA, moist MMs, sclera anicteric Neck: no nodes, no JVD, supple, full ROM Respiratory: no wheezing, no rales, no rhonchi Cardiovascular: RRR, no significant murmur, no rub Gastrointestinal: soft, non-tender, no distention, positive bowel sounds Musculoskeletal: no edema, pulses present Neurological: non-focal, normal sensation, moves all 4 limbs Lymphatic: no nodes Psychiatric: normal affect, A&O x 3 Skin: no rash, normal turgor Dx/Plan (1) Acute worsening of stage 4 chronic kidney disease Code(s): N28.9 - DISORDER OF KIDNEY AND URETER, UNSPECIFIED; N18.4 - CHRONIC KIDNEY DISEASE, STAGE 4 (SEVERE) Status: Acute (2) Elevated brain natriuretic peptide (BNP) level Code(s): R79.89 - OTHER SPECIFIED ABNORMAL FINDINGS OF BLOOD CHEMISTRY Status : Acute (3) Hyperkalemia, diminished renal excretion Code(s): E87.5 - HYPERKALEMIA Status: Acute (4) Hypoalbuminemia Code(s): E88.09 - OTH DISORDERS OF PLASMA-PROTEIN METABOLISM, NEC Status: Acute (5) Metabolic acidosis Code(s): E87.2 - ACIDOSIS Status: Acute (6) Nephrotic range proteinuria Code(s): R80.9 - PROTEINURIA, UNSPECIFIED Status: Acute (7) Vitamin D deficiency Code(s): E55.9 - VITAMIN D DEFICIENCY, UNSPECIFIED Status: Acute (8) Anemia of renal disease Code(s): D63.1 - ANEMIA IN CHRONIC KIDNEY DISEASE Status: Chronic (9) Hypertension Code(s): I10 - ESSENTIAL (PRIMARY) HYPERTENSION Status: Chronic (10) Hypothyroidism Code(s): E03.9 - HYPOTHYROIDISM, UNSPECIFIED Status: Chronic (11) Secondary hyperparathyroidism of renal origin Code(s): N25.81 - SECONDARY HYPERPARATHYROIDISM OF RENAL ORIGIN Status: Chronic (12) Diastolic dysfunction Code(s): I51.9 - HEART DISEASE, UNSPECIFIED Status: Chronic - Plan cont current plan of care, plan discussed w/ family, social insurance analyst * DC Tele * transfer to medical * add amlodipine 10 mg po daily * medication reviewed as below * symptomatic treatment * discussed with pt and family * today plan for AVF and tunneled HD catheter placement * tomorrow HD * social work for outpt HD arrangement Review of Systems - Review of Systems Constitutional: negative: fever, chills, sweats, weakness, malaise, other Eyes: negative: Pain, Vision Change, Conjunctivae Inflammation, Eyelid Inflammation, Redness, Other ENT: negative: Ear Pain, Ear Discharge, Nose Pain, Nose Discharge, Nose Congestion, Mouth Pain, Mouth Swelling, Throat Pain, Throat Swelling, Other Respiratory: negative: Cough, Dry, Shortness of Breath, Hemoptysis, SOB with Excertion, Pleuritic Pain, Sputum, Wheezing Cardiovascular: negative: chest pain, palpitations, orthopnea, paroxysmal nocturnal dyspnea, edema, light headedness, other Gastrointestinal: negative: Nausea, Vomiting, Abdominal Pain, Diarrhea, Constipation, Melena, Hematochezia, Other Genitourinary: negative: Dysuria, Frequency, Incontinence, Hematuria, Retention , Other Musculoskeletal: negative: Neck Pain, Shoulder Pain, Arm Pain, Back Pain, Hand Pain, Leg Pain, Foot Pain, Other Skin: negative: Rash, Lesions, Parker, Bruising, Other - Medications/Allergies Allergies/Adverse Reactions: Allergies Allergy/AdvReac Type Severity Reaction Status Date / Time No Known Allergies Allergy Unverified 10/04/17 16:16 Medications: Current Medications Acetaminophen (Tylenol) 650 mg PO Q4H PRN PRN Reason: Headache/Fever or Pain Last Admin: 10/06/17 01:43 Dose: 650 mg Hydrocodone Bitart/Acetaminophen ([place] 5/325) 1 tab PO Q4H PRN PRN Reason: Moderate Pain (4-6) Last Admin: 10/07/17 00:12 Dose: 1 tab Al Hydroxide/Mg Hydroxide (Maalox) 30 ml PO Q6H PRN PRN Reason: Heartburn or Indigestion Amlodipine Besylate (Norvasc) 10 mg PO DAILY [facility] [place] Last Admin: 10/07/17 08:59 Dose: 10 mg Artificial Tears (Tears Naturale) 0 drop EA EYE PRN PRN PRN Reason: Dry Eyes Calcitriol (Rocaltrol) 0.25 mcg PO DAILY [facility] [place] Last Admin: 10/07/17 09:00 Dose: 0.25 mcg Calcium Carbonate (Tums) 1,000 mg PO Q4H PRN PRN Reason: Heartburn or Indigestion Ferrous Sulfate (Feosol) 325 mg PO QA-[facility] Last Admin: 10/07/17 09:00 Dose: 325 mg Guaifenesin (Robitussin Sf) 200 mg PO Q4H PRN PRN Reason: Cough Hydralazine HCl (Apresoline) 10 mg SLOW IVP Q4H PRN PRN Reason: Systolic BP > 180 Hydroxyzine HCl (Atarax) 10 mg PO Q8H PRN PRN Reason: Itching Levothyroxine Sodium (Synthroid) 125 mcg PO 0600 [facility] [place] Last Admin: 10/07/17 05:45 Dose: 125 mcg Loperamide HCl (Imodium) 2 mg PO PRN PRN PRN Reason: Diarrhea/Loose Stools Loratadine (Claritin) 10 mg PO DAILYPRN PRN PRN Reason: Sinus Symptoms Magnesium Hydroxide (Milk Of Magnesium) 30 ml PO DAILYPRN PRN PRN Reason: Constipation Metoclopramide HCl (Reglan) 10 mg PO ACHS PRN PRN Reason: Nausea Metoprolol Tartrate (Lopressor) 25 mg PO BID [facility] [place] Last Admin: 10/07/17 09:00 Dose: 25 mg Mineral Oil/White Petrolatum (Eucerin Cream) 0 gm TOP BIDPRN PRN PRN Reason: Dry Skin Read Ppd Test Site 0 each PO 1200 [facility] [place] Stop: 10/08/17 23:59 Ondansetron HCl (Zofran Odt) 4 mg PO Q6H PRN PRN Reason: Nausea/Vomiting Ondansetron HCl (Zofran) 4 mg IVP Q6H PRN PRN Reason: Nausea/Vomiting Pantoprazole Sodium (Protonix) 40 mg PO DAILY [facility] [place] Last Admin: 10/07/17 09:00 Dose: 40 mg Phenol (Chloraseptic [place] 180 Ml Bot) 0 ml PO PRN PRN PRN Reason: Sore Throat Senna (Senokot) 2 tab PO HSPRN PRN PRN Reason: Constipation Sevelamer Carbonate (Renvela) 800 mg PO TID-[facility] Last Admin: 10/07/17 09:00 Dose: Not Given Sodium Chloride ([place] Nasal [place] 0.65%) 0 ml EA NARE QIDPRN PRN PRN Reason: Nasal Congestion Vitamin B Complex/Vit C/Folic Acid (Nephro-George Tablet) 1 tab PO DAILY [facility] [place] Last Admin: 10/07/17 09:00 Dose: 1 tab Zolpidem Tartrate (Ambien) 5 mg PO HSPRN PRN PRN Reason: Insomnia
[2017-10-07] MEDS ORDERED: Heparin 10,000 UNITS/ 10 ML VIAL ONE ×2 (11:32→12:01)
[2017-10-07] MEDS ORDERED: PROPOFOL 200 MG/20 ML VIAL ONE ×2 (11:32→12:01)
[2017-10-07] MEDS ORDERED: Midazolam HCl 2 mg/2 ml Vial ONE (11:57)
[2017-10-07] MEDS ORDERED: Fentanyl 100 MCG/2 ML VIAL ONE ×2 (11:57→15:22)
[2017-10-07] MEDS ORDERED: Lidocaine 1% (PF) 30 ML VIAL ONE (12:00)
[2017-10-07] MEDS ORDERED: Bupivacaine HCl 0.5%/Epinephrine 1:200,000/PF 30 ml Vial ONE (12:31)
[2017-10-07] MEDS ORDERED: Bupivacaine/Epinephrine 0.25% 30 ML VIAL ONE (13:04)
[2017-10-07] MEDS ORDERED: Heparin 5,000 UNITS/ML VIAL ONE (13:04)
[2017-10-07] MEDS ORDERED: Heparin 10,000 UNITS/1 ML VIAL ONE (13:04)
[2017-10-07] MEDS ORDERED: Sodium Chloride 0.9% 30 ML ONE (13:04)
[2017-10-07] MEDS ORDERED: Lidocaine 2% 10 ML INJ ONE (13:04)
[2017-10-07] MEDS ORDERED: Propofol 1,000 MG/100 ML VIAL IV ONE (13:41)
[2017-10-07] MEDS ORDERED: traMADol HCl 50 MG TAB PO PRN ×2 (13:54)
[2017-10-07] MEDS ORDERED: Acetaminophen 500 MG TAB PO PRN (13:54)
[2017-10-07] MEDS ORDERED: Protamine Sulfate 50 MG/5 ML VIAL ONE (14:38)
[2017-10-07] MEDS ORDERED: Promethazine HCl 25 MG/ML VIAL SLOW IVP PRN (15:52)
[2017-10-07] MEDS ORDERED: Promethazine HCl 25 MG/ML VIAL IM PRN (15:52)
[2017-10-07] MEDS ORDERED: Ondansetron HCl/PF 4 MG/2 ML Vial IVP PRN (15:52)
--- NOTE | 2017-10-07 16:05 | RAD ---
PORTABLE CHEST 1 VIEW: Date: 10/07/17 Time: 1531 hours HISTORY: Central line placement. FINDINGS/IMPRESSION: There is a right internal jugular double lumen catheter with tip in the projection of the SVC. There is a left internal jugular central venous catheter with tip in the projection of the right atrium. No pneumothoraces are seen. The heart size is normal. No lobar consolidation or large effusions are tavia ntified. POS: RONA
--- NOTE | 2017-10-07 17:50 | OP ---
DATE OF PROCEDURE: 10/07/2017 PREOPERATIVE DIAGNOSES: End-stage renal disease, poor IV access. PROCEDURES PERFORMED: Left IJ central line, right IJ cuffed tunnel dialysis catheter, ultrasound flu oroscopy used for placement, left arm primary fistula, proximal radial artery inflow, outflow basilic vein, cephalic vein outflow thrombosed fibrosed, retrograde antecubital vein used for arterial inflo w calibration to 4 mm coronary dilator outflow. SURGEON: Dr. Delbert Padilla ANESTHESIA: Regional TIVA, Local 0.5% Marcaine with epinephrine, 30 mL, mixed with 2% Xylocaine, 10 mL. PROCEDURE IN DETAIL: The patient was taken to the operating room where under intravenous sedation an d left arm regional anesthesia, neck, chest and left upper extremity, axilla, chest prepared with Chl oraPrep, draped in routine fashion. Local anesthetic infiltrated into the skin and subcutaneous tiss ue about the operative sites. Ultrasound used to cannulate the right and left internal jugular vein. J-wire threaded. Trocar catheter removed. Skin incised and enlarged sharply. On the left side, S eldinger technique used to place a triple lumen catheter, removed the J-wire, securing the catheter w ith sutures of 3-0 nylon. Each port aspirated blood and flushed with saline solution. On the right side, stab incision made on the right chest. Using the tunneling device, the precurved angiodynamics cuffed tunnel hemodialysis catheter tunneled between two incisions, placing the fabric cuff beneath the skin access site and catheter secured with 2 interrupted sutures of 3-0 nylon. Smal ler medium size dilators placed over the J-wire into the internal jugular vein removed. Dilator and pull-away sheath placed over the J-wire in superior vena cava and dilator and J-wire removed. Cathet er placed with pull-away sheath. Pull-away sheath removed. Each port aspirated blood and flushed wi th saline solution and heparinized saline solution 1000 units of heparin per mL indicated volume of t he port. Fluoroscopic images revealed good line placement. Platysma with approximately 4-0 Monocryl , skin with subdermal 4-0 Monocryl and DermaGlue applied. Sterile dressings applied. Incision was made in the proximal volar forearm cast subcutaneous tissue longitudinally below the ant ecubital fossa, identifying the antecubital vein was of adequate size. The cephalic vein at the ante cubital area was fibrosed, outflow vein identified with the basilic vein. Perforating branch was too small to use and branches clipped, divided and cephalic vein inflow distally was doubly clipped, div ided and spatulated and interrogated with coronary dilators, passing coronary dilators from a 2 mm to a 4 mm coronary dilator out the basilic vein outflow without obstruction. It was then flushed with heparinized saline solution. Patient was given 6000 units heparin intravenously. After adequate cir culation time, the proximal radial artery, which had been dissected free was proximally and distally controlled with vascular clamps. Longitudinal arteriotomy made 3 cm and end vein to side proximal ra dial anastomosis created with continuous suture of 6-0 Prolene. Vascular clamps were released and th ere was good outflow interrogated by Doppler basilic vein. Hemostasis noted. The patient was given 25 mg intravenously by Anesthesia protamine. Subcutaneous tissues approximated with 3-0 Monocryl, sk in with subdermal 4-0 Monocryl and DermaGlue applied.
[2017-10-07] MEDS: READ PPD TEST SITE PO SCH (18:00)
[2017-10-07 18:09] LABS: Albumin 2.5 g/dL (2.9-4.4); Alpha 1 0.2 g/dL (0.0-0.4); Alpha 2 0.7 g/dL (0.4-1.0); Beta 0.6 g/dL (0.7-1.3); Gamma 1.1 g/dL (0.4-1.8); Globulin, Total 2.6 g/dL (2.2-3.9); M-Spike Not Observed g/dL (Not Observed)
--- NOTE | 2017-10-07 20:29 | PRG ---
DATE OF SERVICE: 10/07/2017 SUBJECTIVE: Patient was seen and examined at bedside and overnight events noted. Patient denies any shortness of breath or chest pain or palpitation. No history of nausea or vomiting or diarrhea or f ever or chills or cramps. OBJECTIVE: GENERAL: This is a well-built female, in no apparent distress. VITAL SIGNS: Temperature 97.9, pulse 69, respiratory rate 18, blood pressure 149/83. HEENT: Atraumatic, normocephalic, oral mucosa is moist. NECK: Supple. CARDIOVASCULAR: S1, S2 heard, rate and rhythm regular. RESPIRATORY: Clear to auscultation. GASTROINTESTINAL: Abdomen is soft. MUSCULOSKELETAL: No tenderness, no edema. DERMATOLOGIC: No skin rash. NEUROLOGIC: Alert and awake and oriented x3. No focal neurologic deficits. Moving all the extremit ies. PSYCHIATRIC: Mood and affect normal. LABORATORY DATA: Potassium is 4.7, BUN is 41, creatinine is 5.4. ASSESSMENT AND PLAN: 1. End-stage renal disease. Continue on hemodialysis as tolerated. 2. Edema. We will remove fluid with dialysis. 3. Hypertension, stable. 4. Anemia. We will start on Epogen. 5. Proteinuria. Plan is to continue on dialysis as tolerated. Follow with case management for outpatient placement.
[2017-10-08] MEDS: Levothyroxine Sodium 125 MCG TAB PO SCH (05:08)
[2017-10-08] MEDS: Folic Acid/Vit B Comp W-C PO SCH (08:53)
[2017-10-08] MEDS: Calcitriol 0.25 MCG CAP PO SCH (08:53)
[2017-10-08] MEDS: Ferrous Sulfate 325 MG TAB PO SCH (08:53)
[2017-10-08] MEDS: Sevelamer Carbonate 800 MG TAB PO SCH ×3 (08:53→17:53)
[2017-10-08] MEDS: Metoprolol Tartrate 25 MG TAB PO SCH ×2 (08:54→20:20)
[2017-10-08] MEDS: Amlodipine 10 MG TAB PO SCH (08:54)
--- NOTE | 2017-10-08 09:36 | PDOC.PN ---
- Subjective Encounter Start Date: 10/08/17 Encounter Start Time: 07:20 Patient seen and examined for ESRD. No new complaints. No overnight events - Objective Resuscitation Status: Resuscitation Status FULL:Full Resuscitation MAR Reviewed: Yes Vital Signs & Weight: Vital Signs (12 hours) Temp Pulse Resp BP BP Pulse Ox 10/08/17 08:56 98.7 F 77 16 133/82 97 10/08/17 08:00 98.7 F 77 16 10/08/17 03:49 98.6 F 78 18 145/74 H 100 10/07/17 23:50 98.8 F 76 16 128/68 96 10/07/17 21:40 98.1 F 77 16 131/65 98 10/07/17 21:38 98.1 F 77 16 131/65 98 Weight Admit Weight 133 lb 9.6 oz Weight 119 lb 14.903 oz I&O: 10/07/17 10/08/17 10/09/17 06:59 06:59 06:59 Intake Total 1200 1130 Output Total 1400 Balance -200 1130 Result Diagrams: 10/07/17 05:01 10/07/17 05:01 Phys Exam - Physical Examination Constitutional: NAD HEENT: PERRLA, moist MMs, sclera anicteric Neck: no JVD, supple left IJ central line, right IJ tunneled HD cathete Respiratory: no wheezing, no rales, no rhonchi Cardiovascular: RRR, no significant murmur, no rub Gastrointestinal: soft, non-tender, no distention, positive bowel sounds Musculoskeletal: no edema, pulses present AV fistula left arm Neurological: non-focal, normal sensation, moves all 4 limbs Lymphatic: no nodes Psychiatric: normal affect, A&O x 3 Skin: no rash, normal turgor, cap refill <2 seconds Dx/Plan (1) Acute worsening of stage 4 chronic kidney disease Code(s): N28.9 - DISORDER OF KIDNEY AND URETER, UNSPECIFIED; N18.4 - CHRONIC KIDNEY DISEASE, STAGE 4 (SEVERE) Status: Acute (2) Elevated brain natriuretic peptide (BNP) level Code(s): R79.89 - OTHER SPECIFIED ABNORMAL FINDINGS OF BLOOD CHEMISTRY Status : Acute (3) Hyperkalemia, diminished renal excretion Code(s): E87.5 - HYPERKALEMIA Status: Acute (4) Hypoalbuminemia Code(s): E88.09 - OT DISORDERS OF PLASMA-PROTEIN METABOLISM, NEC Status: Acute (5) Metabolic acidosis Code(s): E87.2 - ACIDOSIS Status: Acute (6) Nephrotic range proteinuria Code(s): R80.9 - PROTEINURIA, UNSPECIFIED Status: Acute (7) Vitamin D deficiency Code(s): E55.9 - VITAMIN D DEFICIENCY, UNSPECIFIED Status: Acute (8) Anemia of renal disease Code(s): D63.1 - ANEMIA IN CHRONIC KIDNEY DISEASE Status: Chronic (9) Hypertension Code(s): I10 - ESSENTIAL (PRIMARY) HYPERTENSION Status: Chronic (10) Hypothyroidism Code(s): E03.9 - HYPOTHYROIDISM, UNSPECIFIED Status: Chronic (11) Secondary hyperparathyroidism of renal origin Code(s): N25.81 - SECONDARY HYPERPARATHYROIDISM OF RENAL ORIGIN Status: Chronic (12) Diastolic dysfunction Code(s): I51.9 - HEART DISEASE, UNSPECIFIED Status: Chronic (13) ESRD needing dialysis Code(s): N18.6 - END STAGE RENAL DISEASE; Z99.2 - DEPENDENCE ON RENAL DIALYSIS Status: Acute - Plan cont current plan of care, plan discussed w/ family * medication reviewed as below * symptomatic treatment * spoke with casework specialist about outpt HD arrangement * discussed with family bedside. Review of Systems - Review of Systems Eyes: negative: Pain, Vision Change, Conjunctivae Inflammation, Eyelid Inflammation, Redness, Other ENT: negative: Ear Pain, Ear Discharge, Nose Pain, Nose Discharge, Nose Congestion, Mouth Pain, Mouth Swelling, Throat Pain, Throat Swelling, Other Respiratory: negative: Cough, Dry, Shortness of Breath, Hemoptysis, SOB with Excertion, Pleuritic Pain, Sputum, Wheezing Cardiovascular: negative: chest pain, palpitations, orthopnea, paroxysmal nocturnal dyspnea, edema, light headedness, other Gastrointestinal: negative: Nausea, Vomiting, Abdominal Pain, Diarrhea, Constipation, Melena, Hematochezia, Other Genitourinary: negative: Dysuria, Frequency, Incontinence, Hematuria, Retention , Other Musculoskeletal: negative: Neck Pain, Shoulder Pain, Arm Pain, Back Pain, Hand Pain, Leg Pain, Foot Pain, Other Skin: negative: Rash, Lesions, Parker, Bruising, Other - Medications/Allergies Allergies/Adverse Reactions: Allergies Allergy/AdvReac Type Severity Reaction Status Date / Time No Known Allergies Allergy Unverified 10/04/17 16:16 Medications: Current Medications Acetaminophen (Tylenol) 650 mg PO Q4H PRN PRN Reason: Headache/Fever or Pain Last Admin: 10/06/17 01:43 Dose: 650 mg Acetaminophen (Tylenol) 1,000 mg PO Q6H PRN PRN Reason: Mild Pain (1-3) Hydrocodone Bitart/Acetaminophen ([place] 5/325) 1 tab PO Q4H PRN PRN Reason: Moderate Pain (4-6) Last Admin: 10/07/17 00:12 Dose: 1 tab Al Hydroxide/Mg Hydroxide (Maalox) 30 ml PO Q6H PRN PRN Reason: Heartburn or Indigestion Amlodipine Besylate (Norvasc) 10 mg PO DAILY [facility] Last Admin: 10/08/17 08:54 Dose: 10 mg Artificial Tears (Tears Naturale) 0 drop EA EYE PRN PRN PRN Reason: Dry Eyes Calcitriol (Rocaltrol) 0.25 mcg PO DAILY [facility] Last Admin: 10/08/17 08:53 Dose: 0.25 mcg Calcium Carbonate (Tums) 1,000 mg PO Q4H PRN PRN Reason: Heartburn or Indigestion Epoetin Tomas (Procrit) 7,500 units IVP TuThSa@0900 [facility] Ferrous Sulfate ([facility]ol) [facility] Last Admin: 10/08/17 08:53 Dose: 325 mg Guaifenesin (Robitussin Sf) 200 mg PO Q4H PRN PRN Reason: Cough Hydralazine HCl (Apresoline) 10 mg SLOW IVP Q4H PRN PRN Reason: Systolic BP > 180 Hydroxyzine HCl (Atarax) 10 mg PO Q8H PRN PRN Reason: Itching Levothyroxine Sodium (Synthroid) 125 mcg PO 0600 [facility] Last Admin: 10/08/17 05:08 Dose: 125 mcg Loperamide HCl (Imodium) 2 mg PO PRN PRN PRN Reason: Diarrhea/Loose Stools Loratadine (Claritin) 10 mg PO DAILYPRN PRN PRN Reason: Sinus Symptoms Magnesium Hydroxide (Milk Of Magnesium) 30 ml PO DAILYPRN PRN PRN Reason: Constipation Metoclopramide HCl (Reglan) 10 mg PO ACHS PRN PRN Reason: Nausea Metoprolol Tartrate (Lopressor) 25 mg PO BID [facility] Last Admin: 10/08/17 08:54 Dose: 25 mg Mineral Oil/White Petrolatum (Eucerin Cream) 0 gm TOP BIDPRN PRN PRN Reason: Dry Skin Read Ppd Test Site 0 each PO 1200 KIMMIE Stop: 10/08/17 23:59 Last Admin: 10/07/17 18:00 Dose: 1 each Ondansetron HCl (Zofran Odt) 4 mg PO Q6H PRN PRN Reason: Nausea/Vomiting Ondansetron HCl (Zofran) 4 mg IVP Q6H PRN PRN Reason: Nausea/Vomiting Pantoprazole Sodium (Protonix) 40 mg PO DAILY [facility] Last Admin: 10/08/17 08:54 Dose: 40 mg Phenol (Chloraseptic [place] 180 Ml Bot) 0 ml PO PRN PRN PRN Reason: Sore Throat Senna (Senokot) 2 tab PO HSPRN PRN PRN Reason: Constipation Sevelamer Carbonate (Renvela) 800 mg PO TID-[facility] Last Admin: 10/08/17 08:53 Dose: 800 mg Sodium Chloride ([place] Nasal [place] 0.65%) 0 ml EA NARE QIDPRN PRN PRN Reason: Nasal Congestion Tramadol HCl (Ultram) 50 mg PO Q6H PRN PRN Reason: Moderate Pain (4-6) Tramadol HCl (Ultram) 100 mg PO Q6H PRN PRN Reason: Severe Pain (7-10) Vitamin B Complex/Vit C/Folic Acid (Nephro-George Tablet) 1 tab PO DAILY [facility] Last Admin: 10/08/17 08:53 Dose: 1 tab Zolpidem Tartrate (Ambien) 5 mg PO HSPRN PRN PRN Reason: Insomnia
[2017-10-08] MEDS: Epoetin (ESRD) 20,000 UNITS/ML IVP SCH (11:16)
[2017-10-08] MEDS: READ PPD TEST SITE PO SCH (12:33)
--- NOTE | 2017-10-08 18:47 | PRG ---
DATE OF SERVICE: 10/08/2017 Pauline Harrison is a 57-year-old female who underwent left arm primary fistula and hemodialysi s catheter, placement of central line. Her hemodialysis catheter is functioning well for dialysis. Groin catheter has been removed. Left arm fistula will require a secondary surgical procedure to gai n a functioning primary fistula. Her cephalic vein was fibrosed from repeated IV accesses. From a s urgical standpoint, the patient will be discharged home any time. She will need to follow up with me in 3-4 weeks. She should use her left arm without restrictions and exercise it frequently. She paige l need a basilic vein transposition fistula in 4-6 weeks to gain functioning fistula. She will be de pendent on hemodialysis catheter to that time. Her central line can be removed prior to discharge. At this point, I will see her as needed and I will await her followup in my office in approximately 4 weeks. This should be arranged on a nondialysis day.
--- NOTE | 2017-10-08 19:07 | PRG ---
DATE OF SERVICE: 10/08/2017 SUBJECTIVE: Patient was seen and examined at bedside and overnight events noted. Patient denies any shortness of breath or chest pain or palpitation. No history of nausea or vomiting or diarrhea or f ever or chills or cramps. OBJECTIVE: GENERAL: This is a well-built female, in no apparent distress. VITAL SIGNS: Temperature 98.3, pulse 87, respiratory rate 18, blood pressure 133/82. HEENT: Atraumatic, normocephalic, oral mucosa is moist. NECK: Supple. CARDIOVASCULAR: S1, S2 heard, rate and rhythm regular. RESPIRATORY: Clear to auscultation. GASTROINTESTINAL: Abdomen is soft. MUSCULOSKELETAL: No tenderness, no edema. DERMATOLOGIC: No skin rash. NEUROLOGIC: Alert and awake and oriented x3. No focal neurologic deficits. Moving all the extremit ies. PSYCHIATRIC: Mood and affect normal. LABORATORY DATA: Not done today. ASSESSMENT AND PLAN: 1. End-stage renal disease. Plan is to continue on dialysis Saturday, , and Saturday. Reinaldo mckinnon with case management for outpatient placement. 2. Hypertension. Blood pressure is stable. 3. Edema, controlled. We will remove fluid with dialysis as tolerated. The patient is due for dial ysis today. 4. Anemia. Add Epogen with dialysis. We will continue to follow. Follow with case management for outpatient placement. We will continue dialysis as tolerated.
[2017-10-09] MEDS: Levothyroxine Sodium 125 MCG TAB PO SCH (06:20)
[2017-10-09] MEDS: Sevelamer Carbonate 800 MG TAB PO SCH ×3 (08:59→17:29)
[2017-10-09] MEDS: Folic Acid/Vit B Comp W-C PO SCH (08:59)
[2017-10-09] MEDS: Ferrous Sulfate 325 MG TAB PO SCH (08:59)
[2017-10-09] MEDS: Amlodipine 10 MG TAB PO SCH (09:00)
[2017-10-09] MEDS: Calcitriol 0.25 MCG CAP PO SCH (09:00)
[2017-10-09] MEDS: Metoprolol Tartrate 25 MG TAB PO SCH ×2 (09:00→21:30)
--- NOTE | 2017-10-09 10:43 | PDOC.PN ---
- Subjective Encounter Start Date: 10/09/17 Encounter Start Time: 07:10 Patient seen and examined for ESRD. No new complaints. No overnight events - Objective Resuscitation Status: Resuscitation Status FULL:Full Resuscitation MAR Reviewed: Yes Vital Signs & Weight: Vital Signs (12 hours) Temp Pulse Resp BP BP Pulse Ox 10/09/17 07:23 98.1 F 72 16 146/79 H 98 10/09/17 03:28 98.2 F 83 16 126/70 98 10/08/17 23:15 98.8 F 79 16 132/75 100 Weight Admit Weight 133 lb 9.6 oz Weight 119 lb 14.903 oz I&O: 10/08/17 10/09/17 10/10/17 06:59 06:59 06:59 Intake Total 1130 2140 Balance 1130 2140 Result Diagrams: 10/07/17 05:01 10/07/17 05:01 Phys Exam - Physical Examination Constitutional: NAD HEENT: PERRLA, moist MMs, sclera anicteric Neck: no JVD, supple left side central line, right IJ tunneled HD catheter Respiratory: no wheezing, no rales, no rhonchi Cardiovascular: RRR, no significant murmur, no rub Gastrointestinal: soft, non-tender, no distention, positive bowel sounds Musculoskeletal: no edema, pulses present AVF left arm Neurological: non-focal, normal sensation, moves all 4 limbs Psychiatric: normal affect, A&O x 3 Skin: no rash, normal turgor Dx/Plan (1) Acute worsening of stage 4 chronic kidney disease Code(s): N28.9 - DISORDER OF KIDNEY AND URETER, UNSPECIFIED; N18.4 - CHRONIC KIDNEY DISEASE, STAGE 4 (SEVERE) Status: Acute (2) Elevated brain natriuretic peptide (BNP) level Code(s): R79.89 - OTHER SPECIFIED ABNORMAL FINDINGS OF BLOOD CHEMISTRY Status : Acute (3) Hyperkalemia, diminished renal excretion Code(s): E87.5 - HYPERKALEMIA Status: Acute (4) Hypoalbuminemia Code(s): E88.09 - OTH DISORDERS OF PLASMA-PROTEIN METABOLISM, NEC Status: Acute (5) Metabolic acidosis Code(s): E87.2 - ACIDOSIS Status: Acute (6) Nephrotic range proteinuria Code(s): R80.9 - PROTEINURIA, UNSPECIFIED Status: Acute (7) Vitamin D deficiency Code(s): E55.9 - VITAMIN D DEFICIENCY, UNSPECIFIED Status: Acute (8) Anemia of renal disease Code(s): D63.1 - ANEMIA IN CHRONIC KIDNEY DISEASE Status: Chronic (9) Hypertension Code(s): I10 - ESSENTIAL (PRIMARY) HYPERTENSION Status: Chronic (10) Hypothyroidism Code(s): E03.9 - HYPOTHYROIDISM, UNSPECIFIED Status: Chronic (11) Secondary hyperparathyroidism of renal origin Code(s): N25.81 - SECONDARY HYPERPARATHYROIDISM OF RENAL ORIGIN Status: Chronic (12) Diastolic dysfunction Code(s): I51.9 - HEART DISEASE, UNSPECIFIED Status: Chronic (13) ESRD needing dialysis Code(s): N18.6 - END STAGE RENAL DISEASE; Z99.2 - DEPENDENCE ON RENAL DIALYSIS Status: Acute - Plan cont current plan of care, plan discussed w/ family * once outpt HD arranged, will consider discharge anytime * medication reviewed as below * symptomatic treatment * discussed with family * stable medically * pt wants to take out central line, so will dc central line, pt is not on any iv meds. Review of Systems - Review of Systems Eyes: negative: Pain, Vision Change, Conjunctivae Inflammation, Eyelid Inflammation, Redness, Other ENT: negative: Ear Pain, Ear Discharge, Nose Pain, Nose Discharge, Nose Congestion, Mouth Pain, Mouth Swelling, Throat Pain, Throat Swelling, Other Respiratory: negative: Cough, Dry, Shortness of Breath, Hemoptysis, SOB with Excertion, Pleuritic Pain, Sputum, Wheezing Cardiovascular: negative: chest pain, palpitations, orthopnea, paroxysmal nocturnal dyspnea, edema, light headedness, other Gastrointestinal: negative: Nausea, Vomiting, Abdominal Pain, Diarrhea, Constipation, Melena, Hematochezia, Other Genitourinary: negative: Dysuria, Frequency, Incontinence, Hematuria, Retention , Other Musculoskeletal: negative: Neck Pain, Shoulder Pain, Arm Pain, Back Pain, Hand Pain, Leg Pain, Foot Pain, Other Skin: negative: Rash, Lesions, Parker, Bruising, Other - Medications/Allergies Allergies/Adverse Reactions: Allergies Allergy/AdvReac Type Severity Reaction Status Date / Time No Known Allergies Allergy Unverified 10/04/17 16:16 Medications: Current Medications Acetaminophen (Tylenol) 650 mg PO Q4H PRN PRN Reason: Headache/Fever or Pain Last Admin: 10/06/17 01:43 Dose: 650 mg Acetaminophen (Tylenol) 1,000 mg PO Q6H PRN PRN Reason: Mild Pain (1-3) Hydrocodone Bitart/Acetaminophen ([place] 5/325) 1 tab PO Q4H PRN PRN Reason: Moderate Pain (4-6) Last Admin: 10/07/17 00:12 Dose: 1 tab Al Hydroxide/Mg Hydroxide (Maalox) 30 ml PO Q6H PRN PRN Reason: Heartburn or Indigestion Amlodipine Besylate (Norvasc) 10 mg PO DAILY [facility] Last Admin: 10/09/17 09:00 Dose: 10 mg Artificial Tears (Tears Naturale) 0 drop EA EYE PRN PRN PRN Reason: Dry Eyes Calcitriol (Rocaltrol) 0.25 mcg PO DAILY [facility] Last Admin: 10/09/17 09:00 Dose: 0.25 mcg Calcium Carbonate (Tums) 1,000 mg PO Q4H PRN PRN Reason: Heartburn or Indigestion Epoetin Tomas (Procrit) 7,500 units IVP TuThSa@0900 [facility] Last Admin: 10/08/17 11:16 Dose: 7,500 units Ferrous Sulfate (Feosol) 325 mg PO QA-[facility] Last Admin: 10/09/17 08:59 Dose: 325 mg Guaifenesin (Robitussin Sf) 200 mg PO Q4H PRN PRN Reason: Cough Hydralazine HCl (Apresoline) 10 mg SLOW IVP Q4H PRN PRN Reason: Systolic BP > 180 Hydroxyzine HCl (Atarax) 10 mg PO Q8H PRN PRN Reason: Itching Levothyroxine Sodium (Synthroid) 125 mcg PO 0600 [facility] Last Admin: 10/09/17 06:20 Dose: 125 mcg Loperamide HCl (Imodium) 2 mg PO PRN PRN PRN Reason: Diarrhea/Loose Stools Loratadine (Claritin) 10 mg PO DAILYPRN PRN PRN Reason: Sinus Symptoms Magnesium Hydroxide (Milk Of Magnesium) 30 ml PO DAILYPRN PRN PRN Reason: Constipation Metoclopramide HCl (Reglan) 10 mg PO ACHS PRN PRN Reason: Nausea Metoprolol Tartrate (Lopressor) 25 mg PO BID [facility] Last Admin: 10/09/17 09:00 Dose: 25 mg Mineral Oil/White Petrolatum (Eucerin Cream) 0 gm TOP BIDPRN PRN PRN Reason: Dry Skin Ondansetron HCl (Zofran Odt) 4 mg PO Q6H PRN PRN Reason: Nausea/Vomiting Ondansetron HCl (Zofran) 4 mg IVP Q6H PRN PRN Reason: Nausea/Vomiting Pantoprazole Sodium (Protonix) 40 mg PO DAILY [facility] Last Admin: 10/09/17 09:00 Dose: 40 mg Phenol (Chloraseptic [place] 180 Ml Bot) 0 ml PO PRN PRN PRN Reason: Sore Throat Senna (Senokot) 2 tab PO HSPRN PRN PRN Reason: Constipation Sevelamer Carbonate (Renvela) 800 mg PO TID-[facility] Last Admin: 10/09/17 08:59 Dose: 800 mg Sodium Chloride ([place] Nasal [place] 0.65%) 0 ml EA NARE QIDPRN PRN PRN Reason: Nasal Congestion Tramadol HCl (Ultram) 50 mg PO Q6H PRN PRN Reason: Moderate Pain (4-6) Tramadol HCl (Ultram) 100 mg PO Q6H PRN PRN Reason: Severe Pain (7-10) Vitamin B Complex/Vit C/Folic Acid (Nephro-George Tablet) 1 tab PO DAILY [facility] Last Admin: 10/09/17 08:59 Dose: 1 tab Zolpidem Tartrate (Ambien) 5 mg PO HSPRN PRN PRN Reason: Insomnia
--- NOTE | 2017-10-09 14:27 | PRG ---
DATE OF SERVICE: 10/09/2017 SUBJECTIVE: Patient was seen and examined at bedside and overnight events noted. Patient denies any shortness of breath or chest pain or palpitation. No history of nausea or vomiting or diarrhea or f ever or chills or cramps. OBJECTIVE: GENERAL: This is a thin built female in no apparent distress. VITAL SIGNS: Temperature 96, pulse 70, respiratory rate 18, blood pressure 124/74. HEENT: Atraumatic, normocephalic, Oral mucosa is moist. NECK: Supple CARDIOVASCULAR: S1, S2 heard. Rate and rhythm regular. RESPIRATORY: Clear to auscultation. GASTROINTESTINAL: Abdomen is soft. MUSCULOSKELETAL: No tenderness. No edema. DERMATOLOGIC: No skin rash. NEUROLOGIC: Alert and awake and oriented x3. No focal neurologic deficits. Moving all the extremit ies. PSYCHIATRIC: Mood and affect normal LABORATORY DATA: Potassium is 4.0, BUN is 41, creatinine is 5.7. ASSESSMENT AND PLAN: 1. End-stage renal disease. Continue on hemodialysis as tolerated. 2. Anemia. 3. Edema. 4. Hypertension, stable. Plan is to continue on dialysis as tolerated. Follow with case management for outpatient placement.
[2017-10-10] MEDS: Levothyroxine Sodium 125 MCG TAB PO SCH (05:13)
[2017-10-10] MEDS ORDERED: Heparin 10,000 UNITS/ 10 ML VIAL ONE (10:00)
--- NOTE | 2017-10-10 10:05 | PDOC.PN ---
- Subjective Encounter Start Date: 10/10/17 Encounter Start Time: 08:10 Patient seen and examined for ESRD. No new complaints. No overnight events - Objective Resuscitation Status: Resuscitation Status FULL:Full Resuscitation MAR Reviewed: Yes Vital Signs & Weight: Vital Signs (12 hours) Temp Pulse Resp BP BP Pulse Ox 10/10/17 07:51 97.8 F 81 12 145/85 H 100 10/10/17 04:53 98.4 F 75 16 123/69 96 10/10/17 00:00 98.5 F 73 17 120/70 99 Weight Admit Weight 133 lb 9.6 oz Weight 119 lb 14.903 oz I&O: 10/09/17 10/10/17 10/11/17 06:59 06:59 06:59 Intake Total 2140 790 Balance 2140 790 Result Diagrams: 10/07/17 05:01 10/07/17 05:01 Phys Exam - Physical Examination Constitutional: NAD HEENT: PERRLA, moist MMs, sclera anicteric Neck: no JVD, supple Respiratory: no wheezing, no rales, no rhonchi Cardiovascular: RRR, no significant murmur, no rub Gastrointestinal: soft, non-tender, no distention, positive bowel sounds Musculoskeletal: no edema, pulses present Neurological: non-focal, normal sensation, moves all 4 limbs Psychiatric: normal affect, A&O x 3 Skin: no rash, normal turgor Dx/Plan (1) Acute worsening of stage 4 chronic kidney disease Code(s): N28.9 - DISORDER OF KIDNEY AND URETER, UNSPECIFIED; N18.4 - CHRONIC KIDNEY DISEASE, STAGE 4 (SEVERE) Status: Acute (2) Elevated brain natriuretic peptide (BNP) level Code(s): R79.89 - OTHER SPECIFIED ABNORMAL FINDINGS OF BLOOD CHEMISTRY Status : Acute (3) Hyperkalemia, diminished renal excretion Code(s): E87.5 - HYPERKALEMIA Status: Acute (4) Hypoalbuminemia Code(s): E88.09 - OTH DISORDERS OF PLASMA-PROTEIN METABOLISM, NEC Status: Acute (5) Metabolic acidosis Code(s): E87.2 - ACIDOSIS Status: Acute (6) Nephrotic range proteinuria Code(s): R80.9 - PROTEINURIA, UNSPECIFIED Status: Acute (7) Vitamin D deficiency Code(s): E55.9 - VITAMIN D DEFICIENCY, UNSPECIFIED Status: Acute (8) Anemia of renal disease Code(s): D63.1 - ANEMIA IN CHRONIC KIDNEY DISEASE Status: Chronic (9) Hypertension Code(s): I10 - ESSENTIAL (PRIMARY) HYPERTENSION Status: Chronic (10) Hypothyroidism Code(s): E03.9 - HYPOTHYROIDISM, UNSPECIFIED Status: Chronic (11) Secondary hyperparathyroidism of renal origin Code(s): N25.81 - SECONDARY HYPERPARATHYROIDISM OF RENAL ORIGIN Status: Chronic (12) Diastolic dysfunction Code(s): I51.9 - HEART DISEASE, UNSPECIFIED Status: Chronic (13) ESRD needing dialysis Code(s): N18.6 - END STAGE RENAL DISEASE; Z99.2 - DEPENDENCE ON RENAL DIALYSIS Status: Acute - Plan cont current plan of care, plan discussed w/ family, social worker aide * today plan for HD * await outpt HD arrangement * medication reviewed as below * symptomatic treatment * discussed with family * stable medically . Review of Systems - Review of Systems Eyes: negative: Pain, Vision Change, Conjunctivae Inflammation, Eyelid Inflammation, Redness, Other ENT: negative: Ear Pain, Ear Discharge, Nose Pain, Nose Discharge, Nose Congestion, Mouth Pain, Mouth Swelling, Throat Pain, Throat Swelling, Other Respiratory: negative: Cough, Dry, Shortness of Breath, Hemoptysis, SOB with Excertion, Pleuritic Pain, Sputum, Wheezing Cardiovascular: negative: chest pain, palpitations, orthopnea, paroxysmal nocturnal dyspnea, edema, light headedness, other Gastrointestinal: negative: Nausea, Vomiting, Abdominal Pain, Diarrhea, Constipation, Melena, Hematochezia, Other Genitourinary: negative: Dysuria, Frequency, Incontinence, Hematuria, Retention , Other Musculoskeletal: negative: Neck Pain, Shoulder Pain, Arm Pain, Back Pain, Hand Pain, Leg Pain, Foot Pain, Other Skin: negative: Rash, Lesions, Parker, Bruising, Other - Medications/Allergies Allergies/Adverse Reactions: Allergies Allergy/AdvReac Type Severity Reaction Status Date / Time No Known Allergies Allergy Unverified 10/04/17 16:16 Medications: Current Medications Acetaminophen (Tylenol) 650 mg PO Q4H PRN PRN Reason: Headache/Fever or Pain Last Admin: 10/06/17 01:43 Dose: 650 mg Acetaminophen (Tylenol) 1,000 mg PO Q6H PRN PRN Reason: Mild Pain (1-3) Hydrocodone Bitart/Acetaminophen ([place] 5/325) 1 tab PO Q4H PRN PRN Reason: Moderate Pain (4-6) Last Admin: 10/07/17 00:12 Dose: 1 tab Al Hydroxide/Mg Hydroxide (Maalox) 30 ml PO Q6H PRN PRN Reason: Heartburn or Indigestion Amlodipine Besylate (Norvasc) 10 mg PO DAILY [facility] Last Admin: 10/09/17 09:00 Dose: 10 mg Artificial Tears (Tears Naturale) 0 drop EA EYE PRN PRN PRN Reason: Dry Eyes Calcitriol (Rocaltrol) 0.25 mcg PO DAILY [facility] Last Admin: 10/09/17 09:00 Dose: 0.25 mcg Calcium Carbonate (Tums) 1,000 mg PO Q4H PRN PRN Reason: Heartburn or Indigestion Epoetin Tomas (Procrit) 7,500 units IVP TuThSa@0900 [facility] Last Admin: 10/08/17 11:16 Dose: 7,500 units Ferrous Sulfate (Feosol) 325 mg PO QAM-[facility] Last Admin: 10/09/17 08:59 Dose: 325 mg Guaifenesin (Robitussin Sf) 200 mg PO Q4H PRN PRN Reason: Cough Hydralazine HCl (Apresoline) 10 mg SLOW IVP Q4H PRN PRN Reason: Systolic BP > 180 Hydroxyzine HCl (Atarax) 10 mg PO Q8H PRN PRN Reason: Itching Levothyroxine Sodium (Synthroid) 125 mcg PO 0600 [facility] Last Admin: 10/10/17 05:13 Dose: 125 mcg Loperamide HCl (Imodium) 2 mg PO PRN PRN PRN Reason: Diarrhea/Loose Stools Loratadine (Claritin) 10 mg PO DAILYPRN PRN PRN Reason: Sinus Symptoms Magnesium Hydroxide (Milk Of Magnesium) 30 ml PO DAILYPRN PRN PRN Reason: Constipation Metoclopramide HCl (Reglan) 10 mg PO ACHS PRN PRN Reason: Nausea Metoprolol Tartrate (Lopressor) 25 mg PO BID [facility] Last Admin: 10/09/17 21:30 Dose: 25 mg Mineral Oil/White Petrolatum (Eucerin Cream) 0 gm TOP BIDPRN PRN PRN Reason: Dry Skin Ondansetron HCl (Zofran Odt) 4 mg PO Q6H PRN PRN Reason: Nausea/Vomiting Ondansetron HCl (Zofran) 4 mg IVP Q6H PRN PRN Reason: Nausea/Vomiting Pantoprazole Sodium (Protonix) 40 mg PO DAILY [facility] Last Admin: 10/09/17 09:00 Dose: 40 mg Phenol (Chloraseptic [place] 180 Ml Bot) 0 ml PO PRN PRN PRN Reason: Sore Throat Senna (Senokot) 2 tab PO HSPRN PRN PRN Reason: Constipation Sevelamer Carbonate (Renvela) 800 mg PO TID-[facility] Last Admin: 10/09/17 17:29 Dose: 800 mg Sodium Chloride ([place] Nasal [place] 0.65%) 0 ml EA NARE QIDPRN PRN PRN Reason: Nasal Congestion Tramadol HCl (Ultram) 50 mg PO Q6H PRN PRN Reason: Moderate Pain (4-6) Tramadol HCl (Ultram) 100 mg PO Q6H PRN PRN Reason: Severe Pain (7-10) Vitamin B Complex/Vit C/Folic Acid (Nephro-George Tablet) 1 tab PO DAILY [facility] Last Admin: 10/09/17 08:59 Dose: 1 tab Zolpidem Tartrate (Ambien) 5 mg PO HSPRN PRN PRN Reason: Insomnia
[2017-10-10 11:34] VITALS: BMI 21.9
--- NOTE | 2017-10-10 14:10 | PRG ---
DATE OF SERVICE: 10/10/2017 SUBJECTIVE: Patient was seen and examined at bedside and overnight events noted. Patient denies any shortness of breath or chest pain or palpitation. No history of nausea or vomitin g or diarrhea or fever or chills or cramps. OBJECTIVE: GENERAL: This is a well-built female in no apparent distress. VITAL SIGNS: Temperature 97.8, pulse 81, respiratory rate 18, blood pressure 123/69. HEENT: Atraumatic, normocephalic. Oral mucosa is moist. NECK: Supple. CARDIOVASCULAR: S1, S2 heard. Rate and rhythm regular. RESPIRATORY: Clear to auscultation. GASTROINTESTINAL: Abdomen is soft. MUSCULOSKELETAL: No tenderness. No edema. DERMATOLOGIC: No skin rash. NEUROLOGIC: Alert and awake and oriented x3. No focal neurologic deficits. Moving all the extremit ies. PSYCHIATRIC: Mood and affect normal. LABORATORY DATA: Potassium is 4.7, BUN is 41, creatinine is 5.7. ASSESSMENT AND PLAN: 1. End-stage renal disease. We will continue on hemodialysis as tolerated. 2. Edema, controlled. 3. Hypertension, stable. 4. Anemia. Monitor hemoglobin. Plan is to repeat labs tomorrow and then we will continue dialysis as tolerated.
[2017-10-10] MEDS: Sevelamer Carbonate 800 MG TAB PO SCH ×3 (15:05→17:35)
[2017-10-10] MEDS: Epoetin (ESRD) 20,000 UNITS/ML IVP SCH (15:06)
[2017-10-10] MEDS: Metoprolol Tartrate 25 MG TAB PO SCH ×2 (15:08→20:25)
[2017-10-10] MEDS: Ferrous Sulfate 325 MG TAB PO SCH (15:08)
[2017-10-10] MEDS: Amlodipine 10 MG TAB PO SCH (15:08)
[2017-10-10] MEDS: Calcitriol 0.25 MCG CAP PO SCH (15:09)
[2017-10-10] MEDS: Folic Acid/Vit B Comp W-C PO SCH (15:09)
[2017-10-11 04:19] LABS: Anion Gap 10 mmol/L (10-20); BUN (Urea Nitrogen) 34 mg/dL (9.8-20.1); Calc. Creatinine Clearance 14 mL/min (70-130); Calcium 8.5 mg/dL (7.8-10.44); Carbon Dioxide 28 mmol/L (22-29); Chloride 101 mmol/L (98-107); Estimated GFR-MDRD 12; Glucose 100 mg/dL (70-105); Potassium 4.8 mmol/L (3.5-5.1); Sodium 134 mmol/L (136-145)
[2017-10-11] MEDS: Levothyroxine Sodium 125 MCG TAB PO SCH (05:50)
[2017-10-11] MEDS: Folic Acid/Vit B Comp W-C PO SCH (08:03)
[2017-10-11] MEDS: Calcitriol 0.25 MCG CAP PO SCH (08:03)
[2017-10-11] MEDS: Metoprolol Tartrate 25 MG TAB PO SCH ×2 (08:03→20:50)
[2017-10-11] MEDS: Ferrous Sulfate 325 MG TAB PO SCH (08:03)
[2017-10-11] MEDS: Amlodipine 10 MG TAB PO SCH (08:03)
[2017-10-11] MEDS: Sevelamer Carbonate 800 MG TAB PO SCH ×3 (08:03→17:15)
--- NOTE | 2017-10-11 11:07 | PDOC.PN ---
- Subjective Encounter Start Date: 10/11/17 Encounter Start Time: 08:00 Patient seen and examined for esrd. No new complaints. No overnight events - Objective Resuscitation Status: Resuscitation Status FULL:Full Resuscitation MAR Reviewed: Yes Vital Signs & Weight: Vital Signs (12 hours) Temp Pulse Resp BP BP Pulse Ox 10/11/17 08:03 77 120/74 10/11/17 07:28 98.2 F 77 14 120/74 98 10/11/17 05:05 98.1 F 80 14 132/79 100 10/11/17 00:22 99 F 81 16 132/79 100 Weight Admit Weight 133 lb 9.6 oz Weight 119 lb 14.903 oz I&O: 10/10/17 10/11/17 10/12/17 06:59 06:59 06:59 Intake Total 790 2250 Balance 790 2250 Result Diagrams: 10/07/17 05:01 10/11/17 03:35 Phys Exam - Physical Examination Constitutional: NAD HEENT: PERRLA, moist MMs, sclera anicteric Neck: no JVD, supple Respiratory: no wheezing, no rales, no rhonchi Cardiovascular: RRR, no significant murmur, no rub Gastrointestinal: soft, non-tender, no distention, positive bowel sounds Musculoskeletal: no edema, pulses present Neurological: non-focal, normal sensation, moves all 4 limbs Psychiatric: normal affect, A&O x 3 Skin: no rash, normal turgor Dx/Plan (1) Acute worsening of stage 4 chronic kidney disease Code(s): N28.9 - DISORDER OF KIDNEY AND URETER, UNSPECIFIED; N18.4 - CHRONIC KIDNEY DISEASE, STAGE 4 (SEVERE) Status: Acute (2) Elevated brain natriuretic peptide (BNP) level Code(s): R79.89 - OTHER SPECIFIED ABNORMAL FINDINGS OF BLOOD CHEMISTRY Status : Acute (3) Hyperkalemia, diminished renal excretion Code(s): E87.5 - HYPERKALEMIA Status: Acute (4) Hypoalbuminemia Code(s): E88.09 - OTH DISORDERS OF PLASMA-PROTEIN METABOLISM, NEC Status: Acute (5) Metabolic acidosis Code(s): E87.2 - ACIDOSIS Status: Acute (6) Nephrotic range proteinuria Code(s): R80.9 - PROTEINURIA, UNSPECIFIED Status: Acute (7) Vitamin D deficiency Code(s): E55.9 - VITAMIN D DEFICIENCY, UNSPECIFIED Status: Acute (8) Anemia of renal disease Code(s): D63.1 - ANEMIA IN CHRONIC KIDNEY DISEASE Status: Chronic (9) Hypertension Code(s): I10 - ESSENTIAL (PRIMARY) HYPERTENSION Status: Chronic (10) Hypothyroidism Code(s): E03.9 - HYPOTHYROIDISM, UNSPECIFIED Status: Chronic (11) Secondary hyperparathyroidism of renal origin Code(s): N25.81 - SECONDARY HYPERPARATHYROIDISM OF RENAL ORIGIN Status: Chronic (12) Diastolic dysfunction Code(s): I51.9 - HEART DISEASE, UNSPECIFIED Status: Chronic (13) ESRD needing dialysis Code(s): N18.6 - END STAGE RENAL DISEASE; Z99.2 - DEPENDENCE ON RENAL DIALYSIS Status: Acute - Plan cont current plan of care, plan discussed w/ family, social professionals * await outpt HD arrangement pending insurance authorization * medication reviewed as below * symptomatic treatment. Review of Systems - Review of Systems Eyes: negative: Pain, Vision Change, Conjunctivae Inflammation, Eyelid Inflammation, Redness, Other ENT: negative: Ear Pain, Ear Discharge, Nose Pain, Nose Discharge, Nose Congestion, Mouth Pain, Mouth Swelling, Throat Pain, Throat Swelling, Other Respiratory: negative: Cough, Dry, Shortness of Breath, Hemoptysis, SOB with Excertion, Pleuritic Pain, Sputum, Wheezing Cardiovascular: negative: chest pain, palpitations, orthopnea, paroxysmal nocturnal dyspnea, edema, light headedness, other Gastrointestinal: negative: Nausea, Vomiting, Abdominal Pain, Diarrhea, Constipation, Melena, Hematochezia, Other Genitourinary: negative: Dysuria, Frequency, Incontinence, Hematuria, Retention , Other Musculoskeletal: negative: Neck Pain, Shoulder Pain, Arm Pain, Back Pain, Hand Pain, Leg Pain, Foot Pain, Other Skin: negative: Rash, Lesions, Parker, Bruising, Other - Medications/Allergies Allergies/Adverse Reactions: Allergies Allergy/AdvReac Type Severity Reaction Status Date / Time No Known Allergies Allergy Unverified 10/04/17 16:16 Medications: Current Medications Acetaminophen (Tylenol) 650 mg PO Q4H PRN PRN Reason: Headache/Fever or Pain Last Admin: 10/06/17 01:43 Dose: 650 mg Acetaminophen (Tylenol) 1,000 mg PO Q6H PRN PRN Reason: Mild Pain (1-3) Hydrocodone Bitart/Acetaminophen ([place] 5/325) 1 tab PO Q4H PRN PRN Reason: Moderate Pain (4-6) Last Admin: 10/07/17 00:12 Dose: 1 tab Al Hydroxide/Mg Hydroxide (Maalox) 30 ml PO Q6H PRN PRN Reason: Heartburn or Indigestion Amlodipine Besylate (Norvasc) 10 mg PO DAILY [facility] Last Admin: 10/11/17 08:03 Dose: 10 mg Artificial Tears (Tears Naturale) 0 drop EA EYE PRN PRN PRN Reason: Dry Eyes Calcitriol (Rocaltrol) 0.25 mcg PO DAILY [facility] Last Admin: 10/11/17 08:03 Dose: 0.25 mcg Calcium Carbonate (Tums) 1,000 mg PO Q4H PRN PRN Reason: Heartburn or Indigestion Epoetin Tomas (Procrit) 7,500 units IVP TuThSa@0900 [facility] Last Admin: 10/10/17 15:06 Dose: Not Given Ferrous Sulfate (Feosol) 325 mg PO QAM-[facility] Last Admin: 10/11/17 08:03 Dose: 325 mg Guaifenesin (Robitussin Sf) 200 mg PO Q4H PRN PRN Reason: Cough Hydralazine HCl (Apresoline) 10 mg SLOW IVP Q4H PRN PRN Reason: Systolic BP > 180 Hydroxyzine HCl (Atarax) 10 mg PO Q8H PRN PRN Reason: Itching Levothyroxine Sodium (Synthroid) 125 mcg PO 0600 [facility] Last Admin: 10/11/17 05:50 Dose: 125 mcg Loperamide HCl (Imodium) 2 mg PO PRN PRN PRN Reason: Diarrhea/Loose Stools Loratadine (Claritin) 10 mg PO DAILYPRN PRN PRN Reason: Sinus Symptoms Magnesium Hydroxide (Milk Of Magnesium) 30 ml PO DAILYPRN PRN PRN Reason: Constipation Metoclopramide HCl (Reglan) 10 mg PO ACHS PRN PRN Reason: Nausea Metoprolol Tartrate (Lopressor) 25 mg PO BID [facility] Last Admin: 10/11/17 08:03 Dose: 25 mg Mineral Oil/White Petrolatum (Eucerin Cream) 0 gm TOP BIDPRN PRN PRN Reason: Dry Skin Ondansetron HCl (Zofran Odt) 4 mg PO Q6H PRN PRN Reason: Nausea/Vomiting Ondansetron HCl (Zofran) 4 mg IVP Q6H PRN PRN Reason: Nausea/Vomiting Pantoprazole Sodium (Protonix) 40 mg PO DAILY [facility] Last Admin: 10/11/17 08:03 Dose: 40 mg Phenol (Chloraseptic [place] 180 Ml Bot) 0 ml PO PRN PRN PRN Reason: Sore Throat Senna (Senokot) 2 tab PO HSPRN PRN PRN Reason: Constipation Sevelamer Carbonate (Renvela) 800 mg PO TID-[facility] Last Admin: 10/11/17 08:03 Dose: 800 mg Sodium Chloride ([place] Nasal [place] 0.65%) 0 ml EA NARE QIDPRN PRN PRN Reason: Nasal Congestion Tramadol HCl (Ultram) 50 mg PO Q6H PRN PRN Reason: Moderate Pain (4-6) Tramadol HCl (Ultram) 100 mg PO Q6H PRN PRN Reason: Severe Pain (7-10) Vitamin B Complex/Vit C/Folic Acid (Nephro-George Tablet) 1 tab PO DAILY [facility] Last Admin: 10/11/17 08:03 Dose: 1 tab Zolpidem Tartrate (Ambien) 5 mg PO HSPRN PRN PRN Reason: Insomnia
--- NOTE | 2017-10-11 19:19 | PRG ---
DATE OF SERVICE: 10/11/2017 SUBJECTIVE: Patient was seen and examined at bedside and overnight events noted. Patient denies any shortness of breath or chest pain or palpitation. No history of nausea or vomiting or diarrhea or fever or chills or cramps. OBJECTIVE: GENERAL: This is a well-built female, in no apparent distress VITAL SIGNS: Temperature 98.1, pulse 75, respiratory rate 16, blood pressure 121/83. HEENT: Atraumatic, normocephalic. Oral mucosa is moist NECK: Supple CARDIOVASCULAR: S1S2 heard, Rate and rhythm regular. RESPIRATORY: Clear to auscultation. GASTROINTESTINAL: Abdomen is soft. MUSCULOSKELETAL: No tenderness. No edema. DERMATOLOGIC: No skin rash. NEUROLOGIC: Alert and awake and oriented x3. No focal neurologic deficits. Moving all the extremit ies. PSYCHIATRIC: Mood and affect normal. LABORATORY DATA: Potassium 4.8, BUN 34, creatinine 3.7. ASSESSMENT AND PLAN: 1. End-stage renal disease on hemodialysis. Plan is to continue dialysis as tolerated. Plan is to have 2 hours of dialysis today and then tomorrow. Follow with case management for outpatient [facility]. 2. Edema, controlled. 3. Hypertension. 4. Anemia of end-stage renal disease. 5. We will continue on dialysis as tolerated. Follow with case management.
[2017-10-12] MEDS: Levothyroxine Sodium 125 MCG TAB PO SCH (06:35)
[2017-10-12] MEDS: Sevelamer Carbonate 800 MG TAB PO SCH ×3 (08:52→17:23)
[2017-10-12] MEDS: Folic Acid/Vit B Comp W-C PO SCH (08:56)
[2017-10-12] MEDS: Ferrous Sulfate 325 MG TAB PO SCH (08:56)
[2017-10-12] MEDS: Calcitriol 0.25 MCG CAP PO SCH (08:57)
[2017-10-12] MEDS: Amlodipine 10 MG TAB PO SCH (08:57)
[2017-10-12] MEDS: Metoprolol Tartrate 25 MG TAB PO SCH ×2 (08:57→21:20)
--- NOTE | 2017-10-12 11:50 | PDOC.PN ---
- Subjective Encounter Start Date: 10/12/17 Encounter Start Time: 09:35 Subjective: no sob or chest pain -: is sitting in chair, feels better - Objective Resuscitation Status: Resuscitation Status FULL:Full Resuscitation MAR Reviewed: Yes Vital Signs & Weight: Vital Signs (12 hours) Temp Pulse Resp BP BP Pulse Ox 10/12/17 08:57 87 150/80 H 10/12/17 08:16 97.9 F 87 14 150/80 H 100 10/12/17 04:12 97.7 F 84 16 121/72 96 10/12/17 00:37 98.2 F 84 15 113/68 99 Weight Admit Weight 133 lb 9.6 oz Weight 119 lb 14.903 oz I&O: 10/11/17 10/12/17 10/13/17 06:59 06:59 06:59 Intake Total 2250 1950 Balance 2250 1950 Result Diagrams: 10/07/17 05:01 10/11/17 03:35 Phys Exam - Physical Examination HEENT: PERRLA, moist MMs Neck: no JVD, supple Respiratory: no wheezing, no rales Cardiovascular: RRR, no significant murmur Gastrointestinal: soft, non-tender, positive bowel sounds Musculoskeletal: no edema, pulses present Neurological: non-focal, moves all 4 limbs Psychiatric: normal affect, A&O x 3 Dx/Plan (1) ESRD (end stage renal disease) on dialysis Code(s): N18.6 - END STAGE RENAL DISEASE; Z99.2 - DEPENDENCE ON RENAL DIALYSIS Status: Acute Comment: intiated on HD this admission (2) Anemia of renal disease Code(s): D63.1 - ANEMIA IN CHRONIC KIDNEY DISEASE Status: Chronic (3) Diastolic dysfunction Code(s): I51.9 - HEART DISEASE, UNSPECIFIED Status: Chronic (4) Hypertension Code(s): I10 - ESSENTIAL (PRIMARY) HYPERTENSION Status: Chronic Qualifiers: Hypertension type: essential hypertension Qualified Code(s): I10 - Essential (primary) hypertension (5) Hypothyroidism Code(s): E03.9 - HYPOTHYROIDISM, UNSPECIFIED Status: Chronic Qualifiers: Hypothyroidism type: unspecified Qualified Code(s): E03.9 - Hypothyroidism , unspecified (6) Secondary hyperparathyroidism of renal origin Code(s): N25.81 - SECONDARY HYPERPARATHYROIDISM OF RENAL ORIGIN Status: Chronic - Plan awaiting out pt HD set up -: hemostable -: continue norvasc, lopressor small dose bid -: oral iron and synthroid -: to amb as tolerated * . Review of Systems - Medications/Allergies Allergies/Adverse Reactions: Allergies Allergy/AdvReac Type Severity Reaction Status Date / Time No Known Allergies Allergy Unverified 10/04/17 16:16 Medications: Current Medications Acetaminophen (Tylenol) 650 mg PO Q4H PRN PRN Reason: Headache/Fever or Pain Last Admin: 10/06/17 01:43 Dose: 650 mg Acetaminophen (Tylenol) 1,000 mg PO Q6H PRN PRN Reason: Mild Pain (1-3) Hydrocodone Bitart/Acetaminophen ([place] 5/325) 1 tab PO Q4H PRN PRN Reason: Moderate Pain (4-6) Last Admin: 10/07/17 00:12 Dose: 1 tab Al Hydroxide/Mg Hydroxide (Maalox) 30 ml PO Q6H PRN PRN Reason: Heartburn or Indigestion Amlodipine Besylate (Norvasc) 10 mg PO DAILY [facility] Last Admin: 10/12/17 08:57 Dose: 10 mg Artificial Tears (Tears Naturale) 0 drop EA EYE PRN PRN PRN Reason: Dry Eyes Calcitriol (Rocaltrol) 0.25 mcg PO DAILY [facility] Last Admin: 10/12/17 08:57 Dose: 0.25 mcg Calcium Carbonate (Tums) 1,000 mg PO Q4H PRN PRN Reason: Heartburn or Indigestion Epoetin Tomas (Procrit) 7,500 units IVP TuThSa@0900 [facility] Last Admin: 10/10/17 15:06 Dose: Not Given Ferrous Sulfate (Feosol) 325 mg PO QAM-[facility] Last Admin: 10/12/17 08:56 Dose: 325 mg Guaifenesin (Robitussin Sf) 200 mg PO Q4H PRN PRN Reason: Cough Hydralazine HCl (Apresoline) 10 mg SLOW IVP Q4H PRN PRN Reason: Systolic BP > 180 Hydroxyzine HCl (Atarax) 10 mg PO Q8H PRN PRN Reason: Itching Levothyroxine Sodium (Synthroid) 125 mcg PO 0600 [facility] Last Admin: 10/12/17 06:35 Dose: 125 mcg Loperamide HCl (Imodium) 2 mg PO PRN PRN PRN Reason: Diarrhea/Loose Stools Loratadine (Claritin) 10 mg PO DAILYPRN PRN PRN Reason: Sinus Symptoms Magnesium Hydroxide (Milk Of Magnesium) 30 ml PO DAILYPRN PRN PRN Reason: Constipation Metoclopramide HCl (Reglan) 10 mg PO ACHS PRN PRN Reason: Nausea Metoprolol Tartrate (Lopressor) 25 mg PO BID [facility] Last Admin: 10/12/17 08:57 Dose: 25 mg Mineral Oil/White Petrolatum (Eucerin Cream) 0 gm TOP BIDPRN PRN PRN Reason: Dry Skin Ondansetron HCl (Zofran Odt) 4 mg PO Q6H PRN PRN Reason: Nausea/Vomiting Ondansetron HCl (Zofran) 4 mg IVP Q6H PRN PRN Reason: Nausea/Vomiting Pantoprazole Sodium (Protonix) 40 mg PO DAILY [facility] Last Admin: 10/12/17 08:56 Dose: 40 mg Phenol (Chloraseptic [place] 180 Ml Bot) 0 ml PO PRN PRN PRN Reason: Sore Throat Senna (Senokot) 2 tab PO HSPRN PRN PRN Reason: Constipation Sevelamer Carbonate (Renvela) 800 mg PO TID-[facility] Last Admin: 10/12/17 08:52 Dose: 800 mg Sodium Chloride ([place] Nasal [place] 0.65%) 0 ml EA NARE QIDPRN PRN PRN Reason: Nasal Congestion Tramadol HCl (Ultram) 50 mg PO Q6H PRN PRN Reason: Moderate Pain (4-6) Tramadol HCl (Ultram) 100 mg PO Q6H PRN PRN Reason: Severe Pain (7-10) Vitamin B Complex/Vit C/Folic Acid (Nephro-George Tablet) 1 tab PO DAILY [facility] Last Admin: 10/12/17 08:56 Dose: 1 tab Zolpidem Tartrate (Ambien) 5 mg PO HSPRN PRN PRN Reason: Insomnia
[2017-10-12] MEDS: Epoetin (ESRD) 20,000 UNITS/ML IVP SCH (16:37)
--- NOTE | 2017-10-12 16:57 | PRG ---
DATE OF SERVICE: 10/12/2017 SUBJECTIVE: Patient was seen and examined at bedside and overnight events noted. Patient denies any shortness of breath or chest pain or palpitation. No history of nausea or vomiting or diarrhea or f ever or chills or cramps. OBJECTIVE: GENERAL: This is a well-built female in no apparent distress. VITAL SIGNS: Temperature 98.6, pulse 80, respiratory rate 16, blood pressure 125/72. HEENT: Atraumatic, normocephalic. Oral mucosa is moist. NECK: Supple. CARDIOVASCULAR: S1, S2 heard. Rate and rhythm regular. RESPIRATORY: Clear to auscultation. GASTROINTESTINAL: Abdomen is soft. MUSCULOSKELETAL: No tenderness. No edema. DERMATOLOGIC: No skin rash. NEUROLOGIC: Alert and awake and oriented x3. No focal neurologic deficits. Moving all the extremiti es. PSYCHIATRIC: Mood and affect normal. LABORATORY DATA: Not done today. ASSESSMENT AND PLAN: 1. End-stage renal disease. Continue on hemodialysis as tolerated. Plan is to have dialysis for 2 hours today. The patient had dialysis 2 hours yesterday. Follow with case management for outpatient placement. 2. Edema. 3. Hypertension. 4. Anemia. 5. Plan is to continue on dialysis as tolerated.
[2017-10-13] MEDS: Levothyroxine Sodium 125 MCG TAB PO SCH (06:47)
[2017-10-13] MEDS: Calcitriol 0.25 MCG CAP PO SCH (09:02)
[2017-10-13] MEDS: Folic Acid/Vit B Comp W-C PO SCH (09:02)
[2017-10-13] MEDS: Ferrous Sulfate 325 MG TAB PO SCH (09:02)
[2017-10-13] MEDS: Sevelamer Carbonate 800 MG TAB PO SCH ×3 (09:02→17:41)
[2017-10-13] MEDS: Metoprolol Tartrate 25 MG TAB PO SCH ×2 (09:02→22:29)
[2017-10-13] MEDS: Amlodipine 10 MG TAB PO SCH (09:03)
--- NOTE | 2017-10-13 10:22 | PDOC.PN ---
- Subjective Encounter Start Date: 10/13/17 Encounter Start Time: 09:15 Subjective: no sob, is tolerating HD -: daughter in room -: is ambulating in room - Objective Resuscitation Status: Resuscitation Status FULL:Full Resuscitation MAR Reviewed: Yes Vital Signs & Weight: Vital Signs (12 hours) Temp Pulse Resp BP BP Pulse Ox 10/13/17 09:03 78 131/79 10/13/17 08:03 98.2 F 78 12 131/79 99 10/13/17 04:00 98.4 F 82 16 119/72 97 10/13/17 00:00 98.7 F 77 16 110/66 99 Weight Admit Weight 133 lb 9.6 oz Weight 119 lb 14.903 oz I&O: 10/12/17 10/13/17 10/14/17 06:59 06:59 06:59 Intake Total 1950 2350 Balance 1950 2350 Result Diagrams: 10/07/17 05:01 10/11/17 03:35 Phys Exam - Physical Examination HEENT: PERRLA, moist MMs Neck: no JVD, supple Respiratory: no wheezing, no rales Cardiovascular: RRR, no significant murmur Gastrointestinal: soft, non-tender, positive bowel sounds Musculoskeletal: no edema, pulses present Neurological: non-focal, moves all 4 limbs Psychiatric: normal affect, A&O x 3 Dx/Plan (1) ESRD (end stage renal disease) on dialysis Code(s): N18.6 - END STAGE RENAL DISEASE; Z99.2 - DEPENDENCE ON RENAL DIALYSIS Status: Acute Comment: intiated on HD this admission (2) Anemia of renal disease Code(s): D63.1 - ANEMIA IN CHRONIC KIDNEY DISEASE Status: Chronic (3) Diastolic dysfunction Code(s): I51.9 - HEART DISEASE, UNSPECIFIED Status: Chronic (4) Hypertension Code(s): I10 - ESSENTIAL (PRIMARY) HYPERTENSION Status: Chronic Qualifiers: Hypertension type: essential hypertension Qualified Code(s): I10 - Essential (primary) hypertension (5) Hypothyroidism Code(s): E03.9 - HYPOTHYROIDISM, UNSPECIFIED Status: Chronic Qualifiers: Hypothyroidism type: unspecified Qualified Code(s): E03.9 - Hypothyroidism , unspecified (6) Secondary hyperparathyroidism of renal origin Code(s): N25.81 - SECONDARY HYPERPARATHYROIDISM OF RENAL ORIGIN Status: Chronic - Plan has had successive 2 hr session of HD -: awaiting outpt HD chair -: may dc home if above is arranged -: d/w pt and daughter at bedside -: on norvasc, lopressor and oral iron * . Review of Systems - Medications/Allergies Allergies/Adverse Reactions: Allergies Allergy/AdvReac Type Severity Reaction Status Date / Time No Known Allergies Allergy Unverified 10/04/17 16:16 Medications: Current Medications Acetaminophen (Tylenol) 650 mg PO Q4H PRN PRN Reason: Headache/Fever or Pain Last Admin: 10/06/17 01:43 Dose: 650 mg Acetaminophen (Tylenol) 1,000 mg PO Q6H PRN PRN Reason: Mild Pain (1-3) Hydrocodone Bitart/Acetaminophen ([place] 5/325) 1 tab PO Q4H PRN PRN Reason: Moderate Pain (4-6) Last Admin: 10/07/17 00:12 Dose: 1 tab Al Hydroxide/Mg Hydroxide (Maalox) 30 ml PO Q6H PRN PRN Reason: Heartburn or Indigestion Amlodipine Besylate (Norvasc) 10 mg PO DAILY [facility] Last Admin: 10/13/17 09:03 Dose: 10 mg Artificial Tears (Tears Naturale) 0 drop EA EYE PRN PRN PRN Reason: Dry Eyes Calcitriol (Rocaltrol) 0.25 mcg PO DAILY [facility] Last Admin: 10/13/17 09:02 Dose: 0.25 mcg Calcium Carbonate (Tums) 1,000 mg PO Q4H PRN PRN Reason: Heartburn or Indigestion Epoetin Tomas (Procrit) 7,500 units IVP TuThSa@0900 [facility] Last Admin: 10/12/17 16:37 Dose: Not Given Ferrous Sulfate (Feosol) 325 mg PO QAM-[facility] Last Admin: 10/13/17 09:02 Dose: 325 mg Guaifenesin (Robitussin Sf) 200 mg PO Q4H PRN PRN Reason: Cough Hydralazine HCl (Apresoline) 10 mg SLOW IVP Q4H PRN PRN Reason: Systolic BP > 180 Hydroxyzine HCl (Atarax) 10 mg PO Q8H PRN PRN Reason: Itching Levothyroxine Sodium (Synthroid) 125 mcg PO 0600 [facility] Last Admin: 10/13/17 06:47 Dose: 125 mcg Loperamide HCl (Imodium) 2 mg PO PRN PRN PRN Reason: Diarrhea/Loose Stools Loratadine (Claritin) 10 mg PO DAILYPRN PRN PRN Reason: Sinus Symptoms Magnesium Hydroxide (Milk Of Magnesium) 30 ml PO DAILYPRN PRN PRN Reason: Constipation Metoclopramide HCl (Reglan) 10 mg PO ACHS PRN PRN Reason: Nausea Metoprolol Tartrate (Lopressor) 25 mg PO BID [facility] Last Admin: 10/13/17 09:02 Dose: 25 mg Mineral Oil/White Petrolatum (Eucerin Cream) 0 gm TOP BIDPRN PRN PRN Reason: Dry Skin Ondansetron HCl (Zofran Odt) 4 mg PO Q6H PRN PRN Reason: Nausea/Vomiting Ondansetron HCl (Zofran) 4 mg IVP Q6H PRN PRN Reason: Nausea/Vomiting Pantoprazole Sodium (Protonix) 40 mg PO DAILY [facility] Last Admin: 10/13/17 09:02 Dose: 40 mg Phenol (Chloraseptic [place] 180 Ml Bot) 0 ml PO PRN PRN PRN Reason: Sore Throat Senna (Senokot) 2 tab PO HSPRN PRN PRN Reason: Constipation Sevelamer Carbonate (Renvela) 800 mg PO TID-[facility] Last Admin: 10/13/17 09:02 Dose: 800 mg Sodium Chloride ([place] Nasal [place] 0.65%) 0 ml EA NARE QIDPRN PRN PRN Reason: Nasal Congestion Tramadol HCl (Ultram) 50 mg PO Q6H PRN PRN Reason: Moderate Pain (4-6) Tramadol HCl (Ultram) 100 mg PO Q6H PRN PRN Reason: Severe Pain (7-10) Vitamin B Complex/Vit C/Folic Acid (Nephro-George Tablet) 1 tab PO DAILY [facility] Last Admin: 10/13/17 09:02 Dose: 1 tab Zolpidem Tartrate (Ambien) 5 mg PO HSPRN PRN PRN Reason: Insomnia
--- NOTE | 2017-10-13 16:49 | PRG ---
DATE OF SERVICE: 10/13/2017 SUBJECTIVE: Patient was seen and examined at bedside and overnight events noted. Patient denies any shortness of breath or chest pain or palpitation. No history of nausea or vomiting or diarrhea or fever or chills or cramps. OBJECTIVE: GENERAL: This is a well-built female in no apparent distress. VITAL SIGNS: Temperature 98.2, pulse 70, respiratory rate 18, blood pressure 113/79. HEENT: Atraumatic, normocephalic. Oral mucosa is moist. NECK: Supple. CARDIOVASCULAR: S1 and S2 heard. Rate and rhythm regular. RESPIRATORY: Clear to auscultation. GASTROINTESTINAL: Abdomen is soft. MUSCULOSKELETAL: No tenderness. No edema. DERMATOLOGIC: No skin rash. NEUROLOGIC: Alert and awake and oriented x3. No focal neurologic deficits. Moving all the extremit ies. PSYCHIATRIC: Mood and affect normal. LABORATORY DATA: Potassium is 4.8, BUN is 34, creatinine 3.7. ASSESSMENT AND PLAN: 1. End-stage renal disease, on hemodialysis. Continue on dialysis as tolerated. Follow up with amanda e management for outpatient placement. 2. Edema. We will remove fluid. 3. Hypertension, stable. 4. Anemia. We will monitor hemoglobin. Plan is to continue on dialysis as tolerated.
[2017-10-14] MEDS: Levothyroxine Sodium 125 MCG TAB PO SCH (05:53)
[2017-10-14] MEDS: Amlodipine 10 MG TAB PO SCH (09:30)
[2017-10-14] MEDS: Calcitriol 0.25 MCG CAP PO SCH (09:30)
[2017-10-14] MEDS: Ferrous Sulfate 325 MG TAB PO SCH (09:30)
[2017-10-14] MEDS: Sevelamer Carbonate 800 MG TAB PO SCH ×3 (09:30→17:57)
[2017-10-14] MEDS: Folic Acid/Vit B Comp W-C PO SCH (09:31)
[2017-10-14] MEDS: Metoprolol Tartrate 25 MG TAB PO SCH ×2 (09:31→20:58)
--- NOTE | 2017-10-14 11:44 | PDOC.PN ---
- Subjective Encounter Start Date: 10/14/17 Encounter Start Time: 08:10 -: old records requested/rev Patient seen and examined for esrd. No new complaints. No overnight events - Objective Resuscitation Status: Resuscitation Status FULL:Full Resuscitation MAR Reviewed: Yes Vital Signs & Weight: Vital Signs (12 hours) Temp Pulse Resp BP BP BP Pulse Ox 10/14/17 09:30 72 112/69 10/14/17 08:00 98.2 F 72 16 112/69 98 10/14/17 07:48 98 F 74 16 98 10/14/17 03:51 98 F 74 16 121/71 98 10/14/17 00:00 98.5 F 86 16 117/72 98 Weight Admit Weight 133 lb 9.6 oz Weight 119 lb 14.903 oz I&O: 10/13/17 10/14/17 10/15/17 06:59 06:59 06:59 Intake Total 2350 1670 Balance 2350 1670 Result Diagrams: 10/07/17 05:01 10/11/17 03:35 Phys Exam - Physical Examination Constitutional: NAD HEENT: PERRLA, moist MMs, sclera anicteric Neck: no JVD, supple Respiratory: no wheezing, no rales, no rhonchi Cardiovascular: RRR, no significant murmur, no rub Gastrointestinal: soft, non-tender, no distention, positive bowel sounds Musculoskeletal: no edema, pulses present Neurological: non-focal, normal sensation, moves all 4 limbs Psychiatric: normal affect, A&O x 3 Skin: no rash, normal turgor Dx/Plan (1) ESRD (end stage renal disease) on dialysis Code(s): N18.6 - END STAGE RENAL DISEASE; Z99.2 - DEPENDENCE ON RENAL DIALYSIS Status: Acute Comment: intiated on HD this admission (2) Hyperkalemia, diminished renal excretion Code(s): E87.5 - HYPERKALEMIA Status: Resolved (3) Hypoalbuminemia Code(s): E88.09 - OTH DISORDERS OF PLASMA-PROTEIN METABOLISM, NEC Status: Acute (4) Metabolic acidosis Code(s): E87.2 - ACIDOSIS Status: Resolved (5) Nephrotic range proteinuria Code(s): R80.9 - PROTEINURIA, UNSPECIFIED Status: Acute (6) Vitamin D deficiency Code(s): E55.9 - VITAMIN D DEFICIENCY, UNSPECIFIED Status: Acute (7) Anemia of renal disease Code(s): D63.1 - ANEMIA IN CHRONIC KIDNEY DISEASE Status: Chronic (8) Hypertension Code(s): I10 - ESSENTIAL (PRIMARY) HYPERTENSION Status: Chronic Qualifiers: Hypertension type: essential hypertension Qualified Code(s): I10 - Essential (primary) hypertension (9) Hypothyroidism Code(s): E03.9 - HYPOTHYROIDISM, UNSPECIFIED Status: Chronic Qualifiers: Hypothyroidism type: unspecified Qualified Code(s): E03.9 - Hypothyroidism , unspecified (10) Secondary hyperparathyroidism of renal origin Code(s): N25.81 - SECONDARY HYPERPARATHYROIDISM OF RENAL ORIGIN Status: Chronic (11) Diastolic dysfunction Code(s): I51.9 - HEART DISEASE, UNSPECIFIED Status: Chronic - Plan cont current plan of care, plan discussed w/ family, mental health social worker * medication reviewed as below * symptomatic treatment * await outpt HD arrangement * discussed with daughter * stable medically. Review of Systems - Review of Systems Eyes: negative: Pain, Vision Change, Conjunctivae Inflammation, Eyelid Inflammation, Redness, Other ENT: negative: Ear Pain, Ear Discharge, Nose Pain, Nose Discharge, Nose Congestion, Mouth Pain, Mouth Swelling, Throat Pain, Throat Swelling, Other Respiratory: negative: Cough, Dry, Shortness of Breath, Hemoptysis, SOB with Excertion, Pleuritic Pain, Sputum, Wheezing Cardiovascular: negative: chest pain, palpitations, orthopnea, paroxysmal nocturnal dyspnea, edema, light headedness, other Gastrointestinal: negative: Nausea, Vomiting, Abdominal Pain, Diarrhea, Constipation, Melena, Hematochezia, Other Genitourinary: negative: Dysuria, Frequency, Incontinence, Hematuria, Retention , Other Musculoskeletal: negative: Neck Pain, Shoulder Pain, Arm Pain, Back Pain, Hand Pain, Leg Pain, Foot Pain, Other Skin: negative: Rash, Lesions, Parker, Bruising, Other - Medications/Allergies Allergies/Adverse Reactions: Allergies Allergy/AdvReac Type Severity Reaction Status Date / Time No Known Allergies Allergy Unverified 10/04/17 16:16 Medications: Current Medications Acetaminophen (Tylenol) 650 mg PO Q4H PRN PRN Reason: Headache/Fever or Pain Last Admin: 10/06/17 01:43 Dose: 650 mg Acetaminophen (Tylenol) 1,000 mg PO Q6H PRN PRN Reason: Mild Pain (1-3) Hydrocodone Bitart/Acetaminophen ([place] 5/325) 1 tab PO Q4H PRN PRN Reason: Moderate Pain (4-6) Last Admin: 10/07/17 00:12 Dose: 1 tab Al Hydroxide/Mg Hydroxide (Maalox) 30 ml PO Q6H PRN PRN Reason: Heartburn or Indigestion Amlodipine Besylate (Norvasc) 10 mg PO DAILY [facility] Last Admin: 10/14/17 09:30 Dose: Not Given Artificial Tears (Tears Naturale) 0 drop EA EYE PRN PRN PRN Reason: Dry Eyes Calcitriol (Rocaltrol) 0.25 mcg PO DAILY [facility] Last Admin: 10/14/17 09:30 Dose: 0.25 mcg Calcium Carbonate (Tums) 1,000 mg PO Q4H PRN PRN Reason: Heartburn or Indigestion Epoetin Tomas (Procrit) 7,500 units IVP TuThSa@0900 [facility] Last Admin: 10/12/17 16:37 Dose: Not Given Ferrous Sulfate (Feosol) 325 mg PO QA-[facility] Last Admin: 10/14/17 09:30 Dose: 325 mg Guaifenesin (Robitussin Sf) 200 mg PO Q4H PRN PRN Reason: Cough Hydralazine HCl (Apresoline) 10 mg SLOW IVP Q4H PRN PRN Reason: Systolic BP > 180 Hydroxyzine HCl (Atarax) 10 mg PO Q8H PRN PRN Reason: Itching Levothyroxine Sodium (Synthroid) 125 mcg PO 0600 [facility] Last Admin: 10/14/17 05:53 Dose: 125 mcg Loperamide HCl (Imodium) 2 mg PO PRN PRN PRN Reason: Diarrhea/Loose Stools Loratadine (Claritin) 10 mg PO DAILYPRN PRN PRN Reason: Sinus Symptoms Magnesium Hydroxide (Milk Of Magnesium) 30 ml PO DAILYPRN PRN PRN Reason: Constipation Metoclopramide HCl (Reglan) 10 mg PO ACHS PRN PRN Reason: Nausea Metoprolol Tartrate (Lopressor) 25 mg PO BID [facility] Last Admin: 10/14/17 09:31 Dose: Not Given Mineral Oil/White Petrolatum (Eucerin Cream) 0 gm TOP BIDPRN PRN PRN Reason: Dry Skin Ondansetron HCl (Zofran Odt) 4 mg PO Q6H PRN PRN Reason: Nausea/Vomiting Ondansetron HCl (Zofran) 4 mg IVP Q6H PRN PRN Reason: Nausea/Vomiting Pantoprazole Sodium (Protonix) 40 mg PO DAILY [facility] Last Admin: 10/14/17 09:30 Dose: 40 mg Phenol (Chloraseptic [place] 180 Ml Bot) 0 ml PO PRN PRN PRN Reason: Sore Throat Senna (Senokot) 2 tab PO HSPRN PRN PRN Reason: Constipation Sevelamer Carbonate (Renvela) 800 mg PO TID-[facility] Last Admin: 10/14/17 09:30 Dose: 800 mg Sodium Chloride (Day Nasal [place] 0.65%) 0 ml EA NARE QIDPRN PRN PRN Reason: Nasal Congestion Tramadol HCl (Ultram) 50 mg PO Q6H PRN PRN Reason: Moderate Pain (4-6) Tramadol HCl (Ultram) 100 mg PO Q6H PRN PRN Reason: Severe Pain (7-10) Vitamin B Complex/Vit C/Folic Acid (Nephro-George Tablet) 1 tab PO DAILY [facility] Last Admin: 10/14/17 09:31 Dose: 1 tab Zolpidem Tartrate (Ambien) 5 mg PO HSPRN PRN PRN Reason: Insomnia
--- NOTE | 2017-10-14 14:09 | DIS ---
PRIMARY CARE PHYSICIAN: [facility] call admission. DATE OF ADMISSION: 10/04/2017 DATE OF DISCHARGE 10/14/2017 DISCHARGE DISPOSITION: Home with outpatient dialysis. PRIMARY DISCHARGE DIAGNOSES: 1. New onset end-stage renal disease, started on hemodialysis. 2. Nephrotic syndrome. 3. Hypoalbuminemia. 4. Vitamin D deficiency. 5. Diastolic dysfunction. 6. Hyperkalemia, resolved. 7. Metabolic acidosis, resolved. SECONDARY DISCHARGE DIAGNOSES: Anemia of renal disease, secondary hyperparathyroidism of renal origi n, hypothyroidism, hypertension. PRIMARY PROCEDURE/OPERATION: The patient initially had temporary hemodialysis catheter placement in her right groin. Subsequently, the patient had a hemodialysis catheter in right IJ, left IJ central line placement, AV fistula placement in left arm. RADIOLOGICAL INVESTIGATION: Renal ultrasound was showing medical renal disease. Chest x-ray was unr emarkable. Marking ultrasound, echocardiography showed diastolic dysfunction. SIGNIFICANT LABORATORY DATA: WBC 5.3, hemoglobin 8.3, platelet 110. Sodium 134, potassium 4.8, BUN 34, creatinine 3.77, calcium 8.5, albumin 2.5. Serum protein electrophoresis negative. LDL 62. PTH 390. Vitamin D level 9.9. Urinalysis; protein plus. Urine protein creatinine ratio was more than 3. Hepatitis profile negative. DISCHARGE MEDICATIONS: Norvasc 10 mg p.o. daily. Rocaltrol 0.25 mcg p.o. daily, ferrous sulfate 325 mg p.o. daily, Nephro-George 1 tablet p.o. daily, Synthroid 125 mcg p.o. daily. Metoprolol 25 mg p.o. b.i.d., Renvela 800 mg p.o. t.i.d. CONTRAINDICATIONS: None. CODE STATUS: FULL CODE. INPATIENT CONSULTANTS: Dr. Elizalde and group was following while in hospital. Dr. Padilla was consulted for dialysis access. TEST RESULTS PENDING ON DISCHARGE: None. ALLERGIES: No known drug allergy. DISCHARGE PLAN: Post hospital, the patient will continue dialysis. The patient will follow up with primary care physician. HOSPITAL COURSE: The patient is a 57-year-old female who has chronic kidney disease as well as anemi a of renal disease. She was sent by Dr. Elizalde for hyperkalemia and anemia. During this admission, th e patient was treated with hyperkalemia cocktail treatment. The patient's renal function was getting worse and that is why she required hemodialysis. Dialysis access was placed by Dr. Padilla during [facility]. She had temporary hemodialysis and AV fistula. She will need another surgery for access ing AV fistula in the future. She will follow up with Dr. Padilla as instructed. Her vitamin D level was low and that is why we started Rocaltrol. The patient's blood pressure was high, that is why we added metoprolol 25 mg twice daily. During this admission, she was given 1 unit of blood transfusio n. She had echocardiography for elevated BNP which showed diastolic dysfunction. Serum protein elec trophoresis was negative. Her urinalysis was consistent with nephrotic range proteinuria. The patient stayed in hospital for longer because she was waiting for outpatient dialysis arrangement . The patient has dialysis arrangement at [facility]. The patient will be discharged home with the above- mentioned medication. The patient is medically stable for discharge today. The patient is seen and examined at bedside susan sharif. Please see my progress note from today for further details.
--- NOTE | 2017-10-14 19:44 | PRG ---
DATE OF SERVICE: 10/14/2017 SUBJECTIVE: Patient was seen and examined at bedside and overnight events noted. Patient denies any shortness of breath or chest pain or palpitation. No history of nausea or vomiting or diarrhea or f ever or chills or cramps. OBJECTIVE: GENERAL: This is a well-built female, in no apparent distress. VITAL SIGNS: Temperature 98.1, pulse 79, respiratory rate 14, blood pressure 112/70. HEENT: Atraumatic, normocephalic, oral mucosa is moist. NECK: Supple. CARDIOVASCULAR: S1, S2 heard, rate and rhythm regular. RESPIRATORY: Clear to auscultation. GASTROINTESTINAL: Abdomen is soft. MUSCULOSKELETAL: No tenderness, no edema. DERMATOLOGIC: No skin rash. NEUROLOGIC: Alert and awake and oriented x3. No focal neurologic deficits. Moving all the extremit ies. PSYCHIATRIC: Mood and affect normal. LABORATORY DATA: No labs done today. ASSESSMENT AND PLAN: 1. End-stage renal disease, continue on hemodialysis. 2. Edema, controlled. 3. Hypertension, stable. 4. Anemia, monitor hemoglobin. 5. Follow with case management for outpatient placement. Plan is to have a dialysis tomorrow.
[2017-10-15] MEDS: Levothyroxine Sodium 125 MCG TAB PO SCH (05:24)
[2017-10-15] MEDS: Calcitriol 0.25 MCG CAP PO SCH (08:31)
[2017-10-15] MEDS: Ferrous Sulfate 325 MG TAB PO SCH (08:32)
[2017-10-15] MEDS: Metoprolol Tartrate 25 MG TAB PO SCH (08:32)
[2017-10-15] MEDS: Sevelamer Carbonate 800 MG TAB PO SCH (08:32)
[2017-10-15] MEDS: Amlodipine 10 MG TAB PO SCH (08:33)
[2017-10-15] MEDS: Folic Acid/Vit B Comp W-C PO SCH (08:33)
[2017-10-15] MEDS: Epoetin (ESRD) 20,000 UNITS/ML IVP SCH (08:33)
[2017-10-15 08:50] LABS: Anion Gap 16 mmol/L (10-20); BUN (Urea Nitrogen) 66 mg/dL (9.8-20.1); Calc. Creatinine Clearance 10 mL/min (70-130); Calcium 8.8 mg/dL (7.8-10.44); Carbon Dioxide 22 mmol/L (22-29); Chloride 102 mmol/L (98-107); Estimated GFR-MDRD 8; Glucose 76 mg/dL (70-105); Potassium 5.3 mmol/L (3.5-5.1); Sodium 135 mmol/L (136-145)
--- NOTE | 2017-10-15 10:00 | PDOC.PN ---
- Subjective Encounter Start Date: 10/15/17 Encounter Start Time: 08:10 Patient seen and examined for ESRD.. No new complaints. No overnight events - Objective Resuscitation Status: Resuscitation Status FULL:Full Resuscitation MAR Reviewed: Yes Vital Signs & Weight: Vital Signs (12 hours) Temp Pulse Resp BP BP BP Pulse Ox 10/15/17 08:33 86 118/70 10/15/17 08:00 98.1 F 73 12 146/85 H 96 10/15/17 04:00 98.3 F 86 16 118/70 99 10/15/17 00:20 98.3 F 82 15 125/74 98 Weight Admit Weight 133 lb 9.6 oz Weight 119 lb 14.903 oz I&O: 10/14/17 10/15/17 10/16/17 06:59 06:59 06:59 Intake Total 1670 1720 Balance 1670 1720 Result Diagrams: 10/07/17 05:01 10/15/17 08:20 Phys Exam - Physical Examination Constitutional: NAD HEENT: PERRLA, moist MMs, sclera anicteric Neck: no JVD, supple Respiratory: no wheezing, no rales, no rhonchi Cardiovascular: RRR, no significant murmur, no rub Gastrointestinal: soft, non-tender, no distention, positive bowel sounds Musculoskeletal: no edema, pulses present Neurological: non-focal, normal sensation, moves all 4 limbs Psychiatric: normal affect, A&O x 3 Skin: no rash, normal turgor Dx/Plan (1) ESRD (end stage renal disease) on dialysis Code(s): N18.6 - END STAGE RENAL DISEASE; Z99.2 - DEPENDENCE ON RENAL DIALYSIS Status: Acute Comment: intiated on HD this admission (2) Hyperkalemia, diminished renal excretion Code(s): E87.5 - HYPERKALEMIA Status: Resolved (3) Hypoalbuminemia Code(s): E88.09 - OTH DISORDERS OF PLASMA-PROTEIN METABOLISM, NEC Status: Acute (4) Metabolic acidosis Code(s): E87.2 - ACIDOSIS Status: Resolved (5) Nephrotic range proteinuria Code(s): R80.9 - PROTEINURIA, UNSPECIFIED Status: Acute (6) Vitamin D deficiency Code(s): E55.9 - VITAMIN D DEFICIENCY, UNSPECIFIED Status: Acute (7) Anemia of renal disease Code(s): D63.1 - ANEMIA IN CHRONIC KIDNEY DISEASE Status: Chronic (8) Hypertension Code(s): I10 - ESSENTIAL (PRIMARY) HYPERTENSION Status: Chronic Qualifiers: Hypertension type: essential hypertension Qualified Code(s): I10 - Essential (primary) hypertension (9) Hypothyroidism Code(s): E03.9 - HYPOTHYROIDISM, UNSPECIFIED Status: Chronic Qualifiers: Hypothyroidism type: unspecified Qualified Code(s): E03.9 - Hypothyroidism , unspecified (10) Secondary hyperparathyroidism of renal origin Code(s): N25.81 - SECONDARY HYPERPARATHYROIDISM OF RENAL ORIGIN Status: Chronic (11) Diastolic dysfunction Code(s): I51.9 - HEART DISEASE, UNSPECIFIED Status: Chronic - Plan cont current plan of care, plan discussed w/ family, social media marketing analyst * today outpt HD arrangement done * medication reviewed as below * symptomatic treatment * stable for discharge * see discharge ryan. Review of Systems - Review of Systems Eyes: negative: Pain, Vision Change, Conjunctivae Inflammation, Eyelid Inflammation, Redness, Other ENT: negative: Ear Pain, Ear Discharge, Nose Pain, Nose Discharge, Nose Congestion, Mouth Pain, Mouth Swelling, Throat Pain, Throat Swelling, Other Respiratory: negative: Cough, Dry, Shortness of Breath, Hemoptysis, SOB with Excertion, Pleuritic Pain, Sputum, Wheezing Cardiovascular: negative: chest pain, palpitations, orthopnea, paroxysmal nocturnal dyspnea, edema, light headedness, other Gastrointestinal: negative: Nausea, Vomiting, Abdominal Pain, Diarrhea, Constipation, Melena, Hematochezia, Other Genitourinary: negative: Dysuria, Frequency, Incontinence, Hematuria, Retention , Other Musculoskeletal: negative: Neck Pain, Shoulder Pain, Arm Pain, Back Pain, Hand Pain, Leg Pain, Foot Pain, Other Skin: negative: Rash, Lesions, Parker, Bruising, Other - Medications/Allergies Allergies/Adverse Reactions: Allergies Allergy/AdvReac Type Severity Reaction Status Date / Time No Known Allergies Allergy Unverified 10/04/17 16:16 Medications: Current Medications Acetaminophen (Tylenol) 650 mg PO Q4H PRN PRN Reason: Headache/Fever or Pain Last Admin: 10/06/17 01:43 Dose: 650 mg Acetaminophen (Tylenol) 1,000 mg PO Q6H PRN PRN Reason: Mild Pain (1-3) Al Hydroxide/Mg Hydroxide (Maalox) 30 ml PO Q6H PRN PRN Reason: Heartburn or Indigestion Amlodipine Besylate (Norvasc) 10 mg PO DAILY [facility] Last Admin: 10/15/17 08:33 Dose: Not Given Artificial Tears (Tears Naturale) 0 drop EA EYE PRN PRN PRN Reason: Dry Eyes Calcitriol (Rocaltrol) 0.25 mcg PO DAILY [facility] Last Admin: 10/15/17 08:31 Dose: 0.25 mcg Calcium Carbonate (Tums) 1,000 mg PO Q4H PRN PRN Reason: Heartburn or Indigestion Epoetin Tomas (Procrit) 7,500 units IVP TuThSa@0900 [facility] Last Admin: 10/15/17 08:33 Dose: Not Given Ferrous Sulfate (Feosol) 325 mg PO QA-[facility] Last Admin: 10/15/17 08:32 Dose: 325 mg Guaifenesin (Robitussin Sf) 200 mg PO Q4H PRN PRN Reason: Cough Hydralazine HCl (Apresoline) 10 mg SLOW IVP Q4H PRN PRN Reason: Systolic BP > 180 Hydroxyzine HCl (Atarax) 10 mg PO Q8H PRN PRN Reason: Itching Levothyroxine Sodium (Synthroid) 125 mcg PO 0600 [facility] Last Admin: 10/15/17 05:24 Dose: 125 mcg Loperamide HCl (Imodium) 2 mg PO PRN PRN PRN Reason: Diarrhea/Loose Stools Loratadine (Claritin) 10 mg PO DAILYPRN PRN PRN Reason: Sinus Symptoms Magnesium Hydroxide (Milk Of Magnesium) 30 ml PO DAILYPRN PRN PRN Reason: Constipation Metoclopramide HCl (Reglan) 10 mg PO ACHS PRN PRN Reason: Nausea Metoprolol Tartrate (Lopressor) 25 mg PO BID [facility] Last Admin: 10/15/17 08:32 Dose: Not Given Mineral Oil/White Petrolatum (Eucerin Cream) 0 gm TOP BIDPRN PRN PRN Reason: Dry Skin Ondansetron HCl (Zofran Odt) 4 mg PO Q6H PRN PRN Reason: Nausea/Vomiting Ondansetron HCl (Zofran) 4 mg IVP Q6H PRN PRN Reason: Nausea/Vomiting Pantoprazole Sodium (Protonix) 40 mg PO DAILY [facility] Last Admin: 10/15/17 08:32 Dose: 40 mg Phenol (Chloraseptic [place] 180 Ml Bot) 0 ml PO PRN PRN PRN Reason: Sore Throat Senna (Senokot) 2 tab PO HSPRN PRN PRN Reason: Constipation Sevelamer Carbonate (Renvela) 800 mg PO TID-[facility] Last Admin: 10/15/17 08:32 Dose: 800 mg Sodium Chloride ([place] Nasal [place] 0.65%) 0 ml EA NARE QIDPRN PRN PRN Reason: Nasal Congestion Tramadol HCl (Ultram) 50 mg PO Q6H PRN PRN Reason: Moderate Pain (4-6) Tramadol HCl (Ultram) 100 mg PO Q6H PRN PRN Reason: Severe Pain (7-10) Vitamin B Complex/Vit C/Folic Acid (Nephro-George Tablet) 1 tab PO DAILY [facility] Last Admin: 10/15/17 08:33 Dose: 1 tab Zolpidem Tartrate (Ambien) 5 mg PO HSPRN PRN PRN Reason: Insomnia
[2017-10-15 11:47] VITALS: BP 131/79; TEMP 98.2
--- NOTE | 2017-10-15 13:37 | ADD-DIS ---
This patient was discharged yesterday, but she did not have any approval to go to outpatient dialysis center, and that is why her discharge was postponed. Initially, family were interested in going to [facility], but she was out of network with insurance rizzo, and subsequently, [place] also not able to ta ke her for dialysis because of out of network status, and finally, with the help of case folder, we arranged [facility] dialysis center for her. Everything is arranged today. Please see my discharge lee rubia dictated from yesterday. Patient is seen and examined at bedside today. Plan of care discusse d with the family member.
--- NOTE | 2017-10-15 19:06 | PRG ---
DATE OF SERVICE: 10/15/2017 SUBJECTIVE: Patient was seen and examined at bedside and overnight events noted. Patient denies any shortness of breath or chest pain or palpitation. No history of nausea or vomiting or diarrhea or f ever or chills or cramps. OBJECTIVE: GENERAL: This is a well-built female, in no apparent distress VITAL SIGNS: Temperature 98.2, pulse 81, respiratory rate 18, blood pressure 131/79. HEENT: Atraumatic, normocephalic. Oral mucosa is moist. NECK: Supple. CARDIOVASCULAR: S1, S2 heard. Rate and rhythm regular. RESPIRATORY: Clear to auscultation. GASTROINTESTINAL: Abdomen is soft. MUSCULOSKELETAL: 1+ edema. DERMATOLOGIC: No skin rash. NEUROLOGIC: Alert and awake and oriented x3. No focal neurologic deficits. Moving all the extremit ies. PSYCHIATRIC: Mood and affect normal. LABORATORY DATA: Potassium is 5.3, BUN 66, creatinine 5.5. ASSESSMENT AND PLAN: 1. End-stage renal disease. We will continue on dialysis as tolerated Saturday, Saturday, and Saturday . 2. Mild hyperkalemia. Limit potassium in diet. 3. Edema, controlled. 4. Hypertension, stable. 5. Hyponatremia, limit fluid intake. 6. Anemia. Continue Epogen with dialysis. Plan is to continue on dialysis Saturday, Saturday, and Saturday.
--- NOTE | 2017-10-16 11:57 | PQF ---
[employer] Crystal Reports Winform JELLY Wright, INGE JUSTIN MD [id number] [facility] B- [id number] CLINICAL DOCUMENTATION CLARIFICATION FORM: POST DISCHARGE Addendum to original discharge summary date: ____ Late entry note date: __ Please exercise your independent, professional judgment in responding to the clarification form. Clinical indicators are provided on the bottom of this form for your review Please check appropriate box(s): Please clarify the diagnosis of Diastolic dysfunction: A. TYPE: [ ] Diastolic CHF / HFpEF [ ] Combined Systolic / Diastolic CHF B. ACUITY [ ] Acute [ ] Acute on Chronic [ ] Chronic [ x ] Other diagnosis _diastolic dysfunction without heart failure [ ] Unable to determine In addition, please specify: Present on Admission (POA): [ x ] Yes [ ] No [ ] Unable to determine For continuity of documentation, please document condition throughout progress notes and discharge summary. Thank You. CLINICAL INDICATORS - SIGNS / SYMPTOMS / LABS TTE indications "hypertensive heart disease, Heart failure and Elevated BNP" Peripheral edema Elevated BNP Orthopnea / SOB / dyspnea CXR results Ejection fraction 55-60% RISKS: CKD Hypertension TREATMENTS: Administration of MARÍA ELENA / ARB / BB Cardiac monitoring / telemetry MTDD
--- NOTE | 2017-10-16 12:33 | EKG ---
Test Reason : ABNORMAL LABS Blood Pressure : / mmHG Vent. Rate : 057 BPM Atrial Rate : 057 BPM P-R Int : 144 ms QRS Dur : 074 ms QT Int : 418 ms P-R-T Axes : -05 042 042 degrees QTc Int : 406 ms Sinus bradycardia Otherwise normal ECG Confirmed by KYLE FERRARA ([id number]), editor publications WESTON TRAN ([id number]) on 10/16/2017 12:32:32 PM Referred By: JOSIAS Confirmed By:KYLE FERRARA
== END 2017-10-15 12:15 | disposition home or self-care (01) | DRG 673 ==
LOC: ERS 12:37 → 2NO 14:47 → T4-A 10-07 11:19 → SURG B 10-07 16:06
PROVIDERS: ADMIT Internal Medicine; ATTEND Internal Medicine
PROC: 06H033Z Insertion of Infusion Device into Inferior Vena Cava, Percutaneous Approach (ICD-10-PCS; principal; 2017-10-04)
PROC: 5A1D70Z Performance of Urinary Filtration, Intermittent, Less than 6 Hours Per Day (ICD-10-PCS; 2017-10-04)
PROC: 031C09F Bypass Left Radial Artery to Lower Arm Vein with Autologous Venous Tissue, Open Approach (ICD-10-PCS; 2017-10-07)
PROC: 0JH63XZ Insertion of Tunneled Vascular Access Device into Chest Subcutaneous Tissue and Fascia, Percutaneous Approach (ICD-10-PCS; 2017-10-07)
PROC: 02HV33Z Insertion of Infusion Device into Superior Vena Cava, Percutaneous Approach (ICD-10-PCS; 2017-10-07)
DX: I12.0 Hypertensive chronic kidney disease with stage 5 chronic kidney disease or end stage renal disease (principal); N18.6 End stage renal disease; N17.9 Acute kidney failure, unspecified; E87.2 Acidosis; N25.81 Secondary hyperparathyroidism of renal origin; E87.1 Hypo-osmolality and hyponatremia; E11.22 Type 2 diabetes mellitus with diabetic chronic kidney disease; D63.1 Anemia in chronic kidney disease; I51.9 Heart disease, unspecified; E55.9 Vitamin D deficiency, unspecified; E87.5 Hyperkalemia; E03.9 Hypothyroidism, unspecified; E78.5 Hyperlipidemia, unspecified; R79.89 Other specified abnormal findings of blood chemistry; R80.9 Proteinuria, unspecified
CPT/HCPCS: 36415; 36430; 71045; 71046; 76770; 80048; 80053; 80061; 80069; 81001; 82306; 82553; 82570; 82728; 83540; 83550; 83880; 83970; 84100; 84156; 84165; 84300; 84439; 84443; 84481; 84484; 85025; 86580; 86704; 86706; 86803; 86850; 86900; 86901; 87340; 90471; 90670; 90935; 93005; 93306; 93970; 96374; 96375; A4216; C1752; C1769; G0009; G0257; G0365; J0670; J1642; J1644; J1815; J1940; J2001; J2250; J2704; J2720; J3010; P9016; Q4081

== ENCOUNTER 2017-12-04 08:54 | Day surgery (SDC) | payer OTHER ==
[2017-12-03 11:41] VITALS: BMI 24.0
--- NOTE | 2017-12-03 13:22 | HP ---
HISTORY OF PRESENT ILLNESS: Pauline Harrison is a 57-year-old female presenting with end-stage renal disease and dialysis access on 10/24/2017 undergoing 10/07/2017 a hemodialysis catheter and left arm fistula noting cephalic vein outflow upper arm to be impaired with basilic vein outflow only and prox imal radial artery inflow noting that she would need a basilic vein transposition fistula. She dialy zes Saturday and Saturday [facility] at 3:30 p.m. She does not go on Saturday due to transportation diffi [facility]. She is followed by Dr. Elizalde. ALLERGIES: None. TOBACCO: None. ALCOHOL: None. PAST MEDICAL HISTORY: Hypertension, end-stage renal disease on maintenance dialysis. PAST SURGICAL HISTORY: Appendectomy, hysterectomy, bilateral salpingo-oophorectomy. Never has had a colonoscopy or mammogram. MEDICATIONS: Renvela, metoprolol 25 mg a day, amlodipine 10 mg a day, times a day. ALLERGIES: None. SOCIAL HISTORY: Tobacco none. Alcohol none. PHYSICAL EXAMINATION: VITAL SIGNS: A 134 pounds, 5 feet 3 inches, 23 BMI, 129/63, 70, 97.3 degrees. HEAD EARS EYES NOSE AND THROAT: Unremarkable. LUNGS: Clear to auscultation. CARDIAC: Regular rate and rhythm without murmur or gallop. ABDOMEN: Soft, nontender, no masses. EXTREMITIES: Left upper arm fistula, good thrill and bruit, well healed surgical wound. ASSESSMENT AND PLAN: Left arm fistula, need a basilic vein transposition fistula. We will plan as a n outpatient with regional anesthesia. Risks and benefits explained, long incision explained. Her q uestions answered.
[2017-12-04] MEDS ORDERED: CEFAZOLIN/Water 2 GM/20 ML SYRINGE ONE (10:15)
[2017-12-04] MEDS ORDERED: Midazolam HCl 2 mg/2 ml Vial ONE (10:20)
[2017-12-04] MEDS ORDERED: Fentanyl 100 MCG/2 ML VIAL ONE ×2 (10:20→13:04)
[2017-12-04 10:22] LABS: Anion Gap 15 mmol/L (10-20); BUN (Urea Nitrogen) 52 mg/dL (9.8-20.1); Calc. Creatinine Clearance 8 mL/min (70-130); Calcium 10.9 mg/dL (7.8-10.44); Carbon Dioxide 22 mmol/L (22-29); Chloride 102 mmol/L (98-107); Estimated GFR-MDRD 5; Glucose 78 mg/dL (70-105); Potassium 5.1 mmol/L (3.5-5.1); Sodium 134 mmol/L (136-145)
[2017-12-04 11:05] LABS: #Basophils 0.1 thou/uL (0.0-0.2); #Eosinphils 0.3 thou/uL (0.0-0.7); #Lymphocytes 1.9 thou/uL (1.20-3.40); #Monocytes 0.5 thou/uL (0.11-0.59); #Neutrophils 2.5 thou/uL (1.40-6.50); %Basophils 1.5 % (0.0-1.0); %Eosinophils 5.8 % (0.0-10.0); %Lymphocytes 35.5 % (21.0-51.0); %Monocytes 10.2 % (0.0-10.0); Hemoglobin 10.9 g/dL (12.0-16.0); MDiff Complete? YES; Mean Corpuscular HGB CONC 34.3 g/dL (32.0-36.0); Mean Corpuscular Hemoglobin 32.7 pg (27.0-31.0); Mean Corpuscular Volume 95.3 fL (78.0-98.0); Mean Platelet Volume 6.8 fL (7.4-10.4); PLT Morphology Comment Appears Decreased; Platelet Count 113 thou/uL (130-400); Polychromasia SLIGHT = 2-3 cells (100X) (0-2/hpf); RBC Distribution Width 14.2 % (11.5-14.5); Red Blood Cell (RBC) Count 3.34 mill/uL (4.20-5.40); White Blood Cell (WBC) Count 5.3 thou/uL (4.8-10.8)
[2017-12-04] MEDS ORDERED: Protamine Sulfate 50 MG/5 ML VIAL ONE (11:37)
[2017-12-04] MEDS ORDERED: Heparin 5,000 UNITS/ML VIAL ONE (11:37)
[2017-12-04] MEDS ORDERED: Bupivacaine HCl 0.5%/Epinephrine 1:200,000/PF 30 ml Vial ONE ×2 (11:37→12:44)
[2017-12-04] MEDS ORDERED: Lidocaine 2% 10 ML INJ ONE (12:47)
[2017-12-04] MEDS ORDERED: Propofol 1,000 MG/100 ML VIAL IV ONE (13:04)
[2017-12-04] MEDS ORDERED: Lidocaine 2% Jelly 5 ML TUBE ONE (13:04)
[2017-12-04] MEDS ORDERED: PHENYLEPHRINE-NS 100 MCG/ML 10 ML SYRINGE ONE (13:09)
[2017-12-04] MEDS ORDERED: PROPOFOL 200 MG/20 ML VIAL ONE (13:09)
[2017-12-04] MEDS ORDERED: Heparin 10,000 UNITS/ 10 ML VIAL ONE (15:52)
--- NOTE | 2017-12-04 18:29 | OP ---
DATE OF OPERATION: 12/04/2017 PREOPERATIVE DIAGNOSES: End-stage renal disease, occluded left cephalic vein. POSTOPERATIVE DIAGNOSES: 1. End-stage renal disease, occluded left cephalic vein. 2. Basilic vein transposition fistula, left arm. SURGEON: Delbert Padilla M.D. ANESTHESIA: Regional, TIVA. Local 0.5% Marcaine with epinephrine 30 mL mixed with Xylocaine, 10 mL, 20 mL mixture used. ESTIMATED BLOOD LOSS: 50 mL NOTE: Good basilic vein. PROCEDURE: The patient was taken to the operating room where under regional anesthesia and intraveno us sedation, left upper extremity was prepped with ChloraPrep, draped in routine fashion. Incision m darci from the left axilla at the proximal volar forearm, carried down the skin and subcutaneous tissue . Basilic vein dissected free, keeping adjacent nerves free of harm as the vein was mobilized dividi ng branch between 4-0 silk ties and clips, marking it and patient was given 6000 units of heparin int ravenously and after adequate circulation time, a 12 mm Griselda-Wick tunneler used to create a tunnel i n the basilic vein at the arterial origin in the proximal forearm divided after vascular clamp applie d and using the tunneler was tunneled in a new tunnel, flushed with heparinized saline solution, note d to be flowing well and then anastomosis and then spatulated ends with continuous suture of 6-0 Prol lesli completed. Good hemostasis noted. Vascular clamps were released and there was good flow in the flush was noted. Good hemostasis obtained with cautery clips. Surgicel applied. The patient was gi destiney 50 mg of protamine by Anesthesia. Subcutaneous tissue approximated with continuous suture of 3-0 Monocryl, skin with dorothy. Sterile dressing applied.
== END 2017-12-04 16:08 | disposition home or self-care (01) ==
LOC: SDC 08:54
PROVIDERS: ATTEND Specialist
PROC: 05SC0ZZ Reposition Left Basilic Vein, Open Approach (ICD-10-PCS; principal; 2017-12-04)
DX: I12.0 Hypertensive chronic kidney disease with stage 5 chronic kidney disease or end stage renal disease (principal); N18.6 End stage renal disease; I82.612 Acute embolism and thrombosis of superficial veins of left upper extremity; Z99.2 Dependence on renal dialysis; Z79.899 Other long term (current) drug therapy
CPT/HCPCS: 80048; 85025; J0670; J1644; J2250; J2704; J2720; J3010

== ENCOUNTER 2018-01-10 05:59 | Emergency (ER) | payer OTHER ==
[2018-01-10] MEDS ORDERED: Morphine 4 MG/ML VIAL ONE (06:38)
[2018-01-10 07:04] LABS: #Basophils 0.1 thou/uL (0.0-0.2); #Eosinphils 0.4 thou/uL (0.0-0.7); #Lymphocytes 2.5 thou/uL (1.20-3.40); #Monocytes 0.7 thou/uL (0.11-0.59); #Neutrophils 4.8 thou/uL (1.40-6.50); %Basophils 1.4 % (0.0-1.0); %Eosinophils 5.3 % (0.0-10.0); %Lymphocytes 28.8 % (21.0-51.0); %Monocytes 7.8 % (0.0-10.0); %Neutrophils 56.7 % (42.0-75.0); Hemoglobin 11.3 g/dL (12.0-16.0); Mean Corpuscular HGB CONC 33.1 g/dL (32.0-36.0); Mean Corpuscular Hemoglobin 31.3 pg (27.0-31.0); Mean Corpuscular Volume 94.4 fL (78.0-98.0); Mean Platelet Volume 6.2 fL (7.4-10.4); Platelet Count 267 thou/uL (130-400); RBC Distribution Width 13.8 % (11.5-14.5); White Blood Cell (WBC) Count 8.5 thou/uL (4.8-10.8)
[2018-01-10 07:28] LABS: ALT (SGPT) 9 U/L (8-55); AST (SGOT) 15 U/L (5-34); Albumin 3.1 g/dL (3.5-5.0); Alkaline Phosphatase 46 U/L (40-150); Anion Gap 16 mmol/L (10-20); BUN (Urea Nitrogen) 56 mg/dL (9.8-20.1); Bilirubin, Total 0.4 mg/dL (0.2-1.2); Calc. Creatinine Clearance 0 mL/min (70-130); Calcium 9.2 mg/dL (7.8-10.44); Carbon Dioxide 19 mmol/L (22-29); Chloride 101 mmol/L (98-107); Estimated GFR-MDRD 4; Globulin 3.7 g/dL (2.4-3.5); Glucose 80 mg/dL (70-105); Potassium 5.5 mmol/L (3.5-5.1); Protein, Total 6.8 g/dL (6.0-8.3); Sodium 130 mmol/L (136-145)
[2018-01-10] MEDS ORDERED: Bupivacaine 0.5% 10 ML VIAL ONE (09:18)
[2018-01-10] MEDS ORDERED: Lidocaine 1% w/Epinephrine 1:100K 20 ML VIAL ONE (09:18)
--- NOTE | 2018-01-10 11:02 | CON ---
DATE OF CONSULTATION: 01/10/2018 REASON FOR CONSULTATION: Hyperkalemia. HISTORY OF PRESENT ILLNESS: This is a very pleasant 57-year-old female who dialyzes on Saturday, , and Saturday, who presented to the hospital with hyperkalemia and infected access site. The humphrey ent denies headache, numbness, tingling or weakness. Denies any nausea, vomiting or chest pain. PAST MEDICAL HISTORY: End-stage renal disease, hypertension, anemia, secondary hyperparathyroidism, AV fistula, tunneled dialysis catheter, hysterectomy, appendectomy. SOCIAL HISTORY: No alcohol use. FAMILY HISTORY: Negative for ESRD. ALLERGIES: Reviewed. HOME MEDICATIONS: List reviewed. PHYSICAL EXAMINATION: GENERAL: Patient was awake, alert. VITAL SIGNS: Afebrile, pulse 72, breathing 16, blood pressure 120/75. OBJECTIVE: See above. Awake, alert, in no acute distress. GENERAL APPEARANCE AND MENTAL STATUS: Fair. HEAD/NECK: Normocephalic. Atraumatic. EYES: EOMI. No deformity. EARS: Clear. No ulcers. NOSE: Intact. No lesions. MOUTH: Clear. No discharge. THROAT: Clear. No exudate. LUNGS: Clear. No crackles. CARDIAC: S1, S2. No rub. ABDOMEN: Benign. BS+. GENITALIA/RECTUM: Tilley absent. BACK/EXTREMITIES: Edema 0+ Ulcer- NEUROLOGICAL: Alert and motor intact. SKIN: Rash- Bruise- LYMPHATICS: Edema- Ulcer- REVIEW OF SYSTEMS: A 15-point review of systems was performed and negative except for positives note d above. GENERAL: Weakness- HEAD: Headache- NECK: No swelling or lumps. NOSE: No epistaxis or discharge. EYES: No diplopia or pain. RESPIRATORY: Dyspnea- CARDIOVASCULAR: Chest pain- GASTROINTESTINAL: Nausea- /CODING TECHNICIAN: Hematuria- MUSCULOSKELETAL: No joint pain. NEUROPSYCHIATIC SYSTEMS: No suicidal ideation. No ideation. SKIN: Denies any rash or ulcer. CONSTITUTIONAL: No fever or chills. LABORATORY: Potassium 5.5. ASSESSMENT AND RECOMMENDATIONS: 1. Stage 6 chronic kidney disease. We will plan dialysis. 2. Access area with cellulitis. Continue vancomycin for 2 weeks. 3. Hypertension, stable. 4. Anemia, stable. 5. Medication based on glomerular filtration rate are appropriate. NOTE: The patient was seen in the emergency room.
--- NOTE | 2018-01-10 13:02 | HP ---
DATE OF SERVICE: 01/10/2018 EMERGENCY ROOM EVALUATION HISTORY OF PRESENT ILLNESS: This is a 57-year-old female with a basilic vein transposition fistula l eft upper arm. She has had her dorothy removed. She has developed pain in her arm. She was to see me in my office this morning, but instead presented to the emergency room. She had cellulitis in her medial upper arm and Dr. Elizalde and her dialysis center where she dialyzes Saturday and Saturday, started her on vancomycin. The plan is to give that to her during dialysis for 2 weeks. The patient present s to the emergency room, I was called. Evaluation reveals cellulitis in the left medial upper arm ju st around and above the antecubital fossa. There is a small opening. There is some cloudy fluid bruna ining. The plan is to drain this at the bedside in the emergency room and placed with normal saline wet to d ry dressing arrange home health to see her to change her dressings every day or two. We will prescri be her Ultram for p.r.n. pain refractory to Tylenol [id number]. She will see me in my office n ext . Dr. Elizalde will give her vancomycin IV with dialysis.
--- NOTE | 2018-01-10 13:05 | OP ---
DATE OF PROCEDURE: 01/10/2018 PREOPERATIVE DIAGNOSES: Basilic vein transposition incision wound infection with abscess, medial lef t upper arm and about the antecubital fossa. POSTOPERATIVE DIAGNOSES: Basilic vein transposition incision wound infection with abscess, medial le ft upper arm and about the antecubital fossa. PROCEDURE: Incision and drainage of abscess. SURGEON: Dr. Delbert Padilla ANESTHESIA: Local anesthetic 0.5% Marcaine with epinephrine, 30 mL, mixed with 1% Xylocaine with epi nephrine, 30 mL, 20 mL mixture used. FINDINGS: Abscess in the distal medial upper arm with undermining proximally. PROCEDURE: At the patient's bedside in the emergency room, the area was prepared with ChloraPrep. L ocal anesthetic was infiltrated in the skin and subcutaneous tissue, 10 blade scalpel used and drain an abscess extending proximally. This was opened and drained of cloudy purulent material. Culture s ubmitted. Normal saline wet to dry dressings applied. The patient tolerated the procedure well. The plan is for her to have home health wound care every 1-2 days. Normal saline wet to dry dressing beginning Saturday tomorrow 01/11/2018. She is to see me in my office next week. She was given Ult [place] for pain. Dr. Elizalde is giving her intravenous antibiotics for 2 weeks administered during dialysi s. She has already had 1 dose of vancomycin yesterday.
== END 2018-01-10 12:34 | disposition home or self-care (01) ==
LOC: ERS 05:59
DX: L03.114 Cellulitis of left upper limb (principal); E03.9 Hypothyroidism, unspecified; I10 Essential (primary) hypertension
CPT/HCPCS: 10060; 36415; 80053; 83605; 85025; 87040; 87070; 87077; 87186; 87205; 96374; J2001; J2270; J3490

== ENCOUNTER 2018-06-30 06:28 | Observation (INO) | payer OTHER ==
[2018-06-30 06:56] LABS: #Basophils 0.1 thou/uL (0.0-0.2); #Eosinphils 0.3 thou/uL (0.0-0.7); #Lymphocytes 3.4 thou/uL (1.20-3.40); #Monocytes 0.7 thou/uL (0.11-0.59); #Neutrophils 3.2 thou/uL (1.40-6.50); %Basophils 1.8 % (0.0-1.0); %Eosinophils 3.3 % (0.0-10.0); %Lymphocytes 43.8 % (21.0-51.0); %Monocytes 9.4 % (0.0-10.0); %Neutrophils 41.7 % (42.0-75.0); Hemoglobin 13.7 g/dL (12.0-16.0); Mean Corpuscular HGB CONC 33.9 g/dL (32.0-36.0); Mean Corpuscular Hemoglobin 32.3 pg (27.0-31.0); Mean Corpuscular Volume 95.3 fL (78.0-98.0); Mean Platelet Volume 6.5 fL (7.4-10.4); Platelet Count 142 thou/uL (130-400); RBC Distribution Width 15.1 % (11.5-14.5); Red Blood Cell (RBC) Count 4.24 mill/uL (4.20-5.40); White Blood Cell (WBC) Count 7.7 thou/uL (4.8-10.8)
[2018-06-30] MEDS ORDERED: Aspirin Chewable 81 MG TAB ONE (06:59)
[2018-06-30] MEDS ORDERED: Nitroglycerin 2% Ointment 1 INCH/1 GM Packet ONE (06:59)
[2018-06-30 07:51] LABS: ALT (SGPT) 19 U/L (8-55); AST (SGOT) 18 U/L (5-34); Albumin 3.5 g/dL (3.5-5.0); Alkaline Phosphatase 38 U/L (40-150); Anion Gap 23 mmol/L (10-20); BUN (Urea Nitrogen) 79 mg/dL (9.8-20.1); Bilirubin, Total 0.6 mg/dL (0.2-1.2); Calc. Creatinine Clearance 0 mL/min (70-130); Calcium 8.4 mg/dL (7.8-10.44); Carbon Dioxide 21 mmol/L (22-29); Chloride 92 mmol/L (98-107); Estimated GFR-MDRD 4; Glucose 82 mg/dL (70-105); Potassium 5.7 mmol/L (3.5-5.1); Protein, Total 6.5 g/dL (6.0-8.3); Sodium 130 mmol/L (136-145)
[2018-06-30] MEDS ORDERED: Calcium Gluc 4.6 MEQ/10 ML (100 MG/ML) ONE ×2 (08:14→08:15)
[2018-06-30] MEDS ORDERED: Insulin Regular 300 UNITS/3 ML VIAL ONE (08:14)
[2018-06-30] MEDS ORDERED: Dextrose 50% Abboject 50 ML SYRINGE ONE (08:14)
--- NOTE | 2018-06-30 08:29 | RAD ---
SINGLE VIEW CHEST: HISTORY: Chest pain. COMPARISON: 10/07/2017 FINDINGS: Single view of the chest show normal sized cardiomediastinal silhouette. There is no evidence of cons olidation, mass, or pleural effusion. The bones are unremarkable. IMPRESSION: No evidence of acute cardiopulmonary disease. POS: [facility]
[2018-06-30] MEDS ORDERED: Acetaminophen 325 MG TAB PO PRN (10:26)
[2018-06-30] MEDS ORDERED: Albuterol Sulfate 2.5 mg/3 ml Neb NEB PRN (10:28)
[2018-06-30 10:29] VITALS: BMI 25.7
[2018-06-30] MEDS ORDERED: NIFEdipine XL 30 MG TAB PO SCH (10:30)
[2018-06-30 11:48] LABS: Troponin I 0.027 ng/mL (< 0.028)
[2018-06-30] MEDS ORDERED: Metoprolol Tartrate 100 MG TAB PO SCH (15:00)
[2018-06-30 16:18] LABS: Troponin I 0.034 ng/mL (< 0.028)
--- NOTE | 2018-06-30 16:20 | CON ---
DATE OF CONSULTATION: REASON FOR CONSULTATION: End-stage renal disease on maintenance hemodialysis. HISTORY OF PRESENT ILLNESS: A 57-year-old female, who woke up this morning complaining of chest pain. She was brought to the emergency room to rule out myocardial infarction. The patient denies no headache, numbness, tingling, or weakness. Denies any nausea, vomiting, or chest pain. PAST MEDICAL HISTORY: End-stage renal disease, hypertension, diabetes mellitus, anemia, tunneled dialysis catheter AV fistula, history of hysterectomy, and appendectomy. SOCIAL HISTORY: No alcohol or drug use. FAMILY HISTORY: Negative for ESRD. ALLERGIES: REVIEWED. HOME MEDICATIONS LISTS: Reviewed. REVIEW OF SYSTEMS: A 15-point review of system was performed, negative except for positive noted above. GENERAL: HEAD: NECK: No swelling or lumps. NOSE: No epistaxis or discharge. EYES: No diplopia or pain. RESPIRATORY: CARDIOVASCULAR: GASTROINTESTINAL: /SIGNALS ANALYST: MUSCULOSKELETAL: No joint pain. NEUROPSYCHIATIC SYSTEMS: No suicidal ideation. No ideation. SKIN: Denies any rash or ulcer. CONSTITUTIONAL: No fever or chills. PHYSICAL EXAMINATION: CONSTITUTIONAL: The patient is awake and alert. VITAL SIGNS: Afebrile, pulse 63, breathing 16, and blood pressure 192/88. GENERAL APPEARANCE AND MENTAL STATUS: Fair. HEAD/NECK: Normocephalic. Atraumatic. EYES: EOMI. No deformity. EARS: Clear. No ulcers. NOSE: Intact. No lesions. MOUTH: Clear. No discharge. THROAT: Clear. No exudate. LUNGS: Clear. No crackles. CARDIAC: S1, S2. No rub. ABDOMEN: Benign. Bowel sounds positive. GENITALIA/RECTUM: Tilley absent. BACK/EXTREMITIES: Edema 0+. NEUROLOGICAL: Alert and motor intact. SKIN: LYMPHATICS: LABORATORY DATA: Labs reviewed. ASSESSMENT AND PLAN: Stage 6 chronic kidney disease, plan dialysis. Hyperkalemia, plan dialysis. Anemia, plan dialysis. Hypertension, titrate home medication. Job ID: [id number]
--- NOTE | 2018-06-30 17:48 | HP ---
PRIMARY CARE PHYSICIAN: None. PRIMARY SOLAR SALES REPRESENTATIVE AND ASSESSOR: Dr. Elizalde and Dr. Shrestha. CHIEF COMPLAINT: Chest pain. HISTORY OF PRESENT ILLNESS: Ms. Harrison is a pleasant 57-year-old female with past medical history of end-stage renal disease on dialysis, hypertension, and hypothyroidism, who had presented to [facility] as a transfer from [facility], after she had complaints of chest pain that started late last night. She states the pain was localized in left upper chest and radiating to her back. She was treated with 1 inch of transdermal nitroglycerin and oral aspirin, which seemed to improve her symptoms. Her EKG was found to be in normal sinus rhythm with heart rate of [address]-T wave changes. Chest x-ray was obtained and showed no acute cardiopulmonary process. First initial cardiac enzyme returned within normal limits. BNP was; however, elevated at 1048.2. Sodium was low at 130, potassium high at 5.7. Creatinine 9.92 with an estimated GFR 4. She states that her primary grout pump operator is Dr. Elizalde. However, she has also seen Dr. Shrestha in the past and her regular dialysis days are Saturday, Saturday, and Saturday. She had denied any missed dialysis days recently. She also reports checking her blood pressure at home and noticed an elevated blood pressure with systolic greater than 200 when her symptoms started. She was transferred to [facility] for further evaluation and workup of her symptoms. Upon arrival to [facility], she had no further complaints of chest pain, shortness of breath, palpitations, abdominal pain, nausea, or vomiting. She also denied any headache, dizziness, or blurred vision. Nephrology Services, Dr. Shrestha was then consulted for further evaluation and management of her dialysis. Looking back at her recent history, she was hospitalized in September of 2017 and underwent an echocardiogram during the hospitalization, which displayed an ejection fraction of 55% to 60%. She; however, has not had a nuclear stress test for quite some time per the patient. This will be ordered during this hospitalization and cardiac enzymes will be monitored and trended. It was determined that she be admitted under observation for further dialysis and workup of her chest pain. REVIEW OF SYSTEMS: All other systems reviewed and found to be negative unless mentioned in HPI. PAST MEDICAL HISTORY: Significant for end-stage renal disease on dialysis, hypertension, and hypothyroidism. PAST SURGICAL HISTORY: Hysterectomy, appendectomy, and left upper arm fistula. PSYCHIATRIC HISTORY: No previous psychiatric history noted. SOCIAL HISTORY: Lives at home with her . She denies any alcohol, tobacco, or illicit drug use. KNOWN ALLERGIES: None. CURRENT HOME MEDICATIONS: 1. Sevelamer carbonate 800 mg p.o. t.i.d. with meals. 2. Levothyroxine 125 mcg p.o. q.a.m. 3. Metoprolol 25 mg p.o. b.i.d. PHYSICAL EXAMINATION: VITAL SIGNS: BP 117/61, pulse 55, respirations 12, temperature 97.4 degrees Fahrenheit, and O2 saturations 100% on room air. GENERAL: The patient is awake, alert, and oriented x3. She is non-Citizen Of [place] speaking; however, at bedside translating. HEENT: Atraumatic and normocephalic. Pupils are round and reactive to light. Extraocular muscles intact. Moist mucous membranes noted. NECK: Soft and supple. No JVD. Trachea midline. CARDIOVASCULAR: Positive S1 and S2. Regular rate and rhythm. No murmur auscultated. RESPIRATORY: Clear to auscultation bilaterally. No wheezes, rales, or rhonchi. ABDOMEN: Soft and nontender. Bowel sounds present. No rebound, rigidity, or guarding noted. MUSCULOSKELETAL: Strength 5+ bilaterally in upper and lower extremities. Moves all extremities equal. Left upper extremity fistula is noted with good bruit and thrill noted. Gait not assessed. NEUROLOGIC: Cranial nerves 2 through 12 grossly intact. No focal deficits noted. Speech intact; however, non-Citizen Of [place] speaking. Gait not assessed. SKIN: Warm, dry, and intact. No rashes. No lesions noted. PSYCHIATRIC: Good mood and affect. LABORATORY DATA: WBC 7.7, RBC 4.24, hemoglobin 13.7, and platelet 142. Sodium 130, potassium 5.7, chloride 92, carbon dioxide 21, anion gap 23, BUN 79, creatinine 9.92, estimated GFR 4, glucose 82, and alkaline phosphatase 38. Troponin 0.027 x2 and BNP 1048.2. DIAGNOSTIC IMAGING: Chest x-ray showed no evidence of acute cardiopulmonary disease. ASSESSMENT AND PLAN: 1. End-stage renal disease for currently on dialysis, consult placed for Nephrology Services for further dialysis during hospital course, recheck BMP in the morning. 2. Chest pain, we will rule out cardiac causes and order a stress test pending, serial troponin negative x2. We will check a third. The patient's EKG was normal sinus rhythm with this with no acute changes and she remains asymptomatic at this time. 3. Hyponatremia, as above. Recheck BMP in the morning and also continue with Nephrology recommendations. 4. Hyperkalemia as above. Continue with dialysis. Recheck BMP in the morning. 5. Hypertension, currently stable at this time. Continue on the patient's home regimen. 6. Hypothyroidism. Continue on the patient's home regimen with levothyroxine 125 mcg p.o. q.a.m. We will check TSH. 7. Deep venous thrombosis and gastrointestinal prophylaxis. 8. Code status, full code. 9. Disposition pending further workup and clinical findings. Job ID: [id number]
[2018-06-30] MEDS ORDERED: Metoprolol Tartrate 25 MG TAB PO SCH (22:00)
[2018-07-01 05:01] LABS: #Basophils 0.1 thou/uL (0.0-0.2); #Eosinphils 0.2 thou/uL (0.0-0.7); #Lymphocytes 2.4 thou/uL (1.20-3.40); #Monocytes 0.7 thou/uL (0.11-0.59); #Neutrophils 2.2 thou/uL (1.40-6.50); %Basophils 1.3 % (0.0-1.0); %Eosinophils 3.5 % (0.0-10.0); %Lymphocytes 43.3 % (21.0-51.0); %Monocytes 11.8 % (0.0-10.0); %Neutrophils 40.1 % (42.0-75.0); Hemoglobin 12.3 g/dL (12.0-16.0); Mean Corpuscular HGB CONC 34.3 g/dL (32.0-36.0); Mean Corpuscular Hemoglobin 33.5 pg (27.0-31.0); Mean Corpuscular Volume 97.7 fL (78.0-98.0); Mean Platelet Volume 6.7 fL (7.4-10.4); Platelet Count 124 thou/uL (130-400); Red Blood Cell (RBC) Count 3.68 mill/uL (4.20-5.40); White Blood Cell (WBC) Count 5.5 thou/uL (4.8-10.8)
[2018-07-01 05:23] LABS: Anion Gap 15 mmol/L (10-20); BUN (Urea Nitrogen) 35 mg/dL (9.8-20.1); Calc. Creatinine Clearance 10 mL/min (70-130); Calcium 8.5 mg/dL (7.8-10.44); Carbon Dioxide 26 mmol/L (22-29); Chloride 95 mmol/L (98-107); Estimated GFR-MDRD 7; Glucose 70 mg/dL (70-105); Potassium 5.1 mmol/L (3.5-5.1); Sodium 131 mmol/L (136-145)
[2018-07-01] MEDS: Levothyroxine Sodium 125 MCG TAB PO SCH (06:30)
[2018-07-01] MEDS: Metoprolol Tartrate 25 MG TAB PO SCH ×3 (08:37→20:58)
[2018-07-01] MEDS ORDERED: Levothyroxine Sodium 125 MCG TAB PO SCH (09:00)
--- NOTE | 2018-07-01 11:42 | PRG ---
DATE OF SERVICE: 07/01/2018 SUBJECTIVE: This is a 57-year-old female, being seen for end-stage kidney disease. The patient denied nausea, vomiting, or chest pain. OBJECTIVE: CONSTITUTIONAL: On examination, the patient is awake, alert. VITAL SIGNS: Afebrile. Pulse 54, breathing 16, blood pressure 144/68. GENERAL APPEARANCE AND MENTAL STATUS: Fair. HEAD/NECK: Normocephalic. Atraumatic. EYES: EOMI. No deformity. EARS: Clear. No ulcers. NOSE: Intact. No lesions. MOUTH: Clear. No discharge. THROAT: Clear. No exudate. LUNGS: Clear. No crackles. CARDIAC: S1, S2. No rub. ABDOMEN: Benign. Bowel sounds positive. GENITALIA/RECTUM: Tilley absent. BACK/EXTREMITIES: Edema 0+. NEUROLOGICAL: Alert and motor intact. SKIN: LYMPHATICS: LABORATORY DATA: Labs showed hemoglobin 12.3. ASSESSMENT AND PLAN: 1. Stage 6 chronic kidney disease. Continue hemodialysis. 2. Hypertension, stable. 3. Anemia, stable. 4. Medications based on GFR appropriate. Job ID: [id number]
--- NOTE | 2018-07-01 12:57 | NM ---
NUCLEAR MEDICINE CARDIAC STRESS TEST WITH EJECTION FRACTION: History: Chest pain. Comparison: None. FINDINGS: Stress and rest performed after the intravenous administration of 29.8 and 10.1 mCi Technetium 99M Se stamibi. There is adequate left ventricular uptake of radiotracer. No scar or ischemia. Ejection fraction is 64%. IMPRESSION: Normal exam. POS: [facility]
--- NOTE | 2018-07-01 16:28 | PDOC.PN ---
- Subjective Encounter Start Date: 07/01/18 Encounter Start Time: 16:27 Patient lying in bed, she denies any chest pain, shortness of breath or abdominal pain. She tolerated dialysis yesterday with Dr Elizalde. Cr improved. - Objective MAR Reviewed: Yes Vital Signs & Weight: Vital Signs (12 hours) Temp Pulse Resp BP Pulse Ox 07/01/18 15:09 97.8 F 55 L 20 151/67 H 99 07/01/18 12:35 63 07/01/18 11:45 97.4 F L 56 L 14 170/79 H 98 07/01/18 07:30 97.7 F 54 L 20 162/77 H 99 07/01/18 05:25 98 F 54 L 16 144/68 H 99 Weight Weight 132 lb 15.02 oz I&O: 06/30/18 07/01/18 07/02/18 06:59 06:59 06:59 Intake Total 480 120 Output Total 1600 Balance -1120 120 Result Diagrams: 07/01/18 04:35 07/01/18 04:35 Radiology Reviewed by me: Yes Phys Exam - Physical Examination Constitutional: NAD Non-slovak speaking HEENT: PERRLA, oral pharynx no lesions Neck: no nodes Respiratory: no wheezing, clear to auscultation bilateral Cardiovascular: RRR, no significant murmur Gastrointestinal: soft, positive bowel sounds Musculoskeletal: no edema, pulses present AV fistula LUE, good thrill and bruit Neurological: non-focal, moves all 4 limbs Lymphatic: no nodes Psychiatric: normal affect, A&O x 3 Skin: no rash, cap refill <2 seconds Dx/Plan (1) Diastolic dysfunction Code(s): I51.9 - HEART DISEASE, UNSPECIFIED Status: Chronic (2) ESRD (end stage renal disease) on dialysis Code(s): N18.6 - END STAGE RENAL DISEASE; Z99.2 - DEPENDENCE ON RENAL DIALYSIS Status: Acute Comment: intiated on HD this admission (3) Hypertension Code(s): I10 - ESSENTIAL (PRIMARY) HYPERTENSION Status: Chronic Qualifiers: Hypertension type: essential hypertension Qualified Code(s): I10 - Essential (primary) hypertension (4) Hypothyroidism Code(s): E03.9 - HYPOTHYROIDISM, UNSPECIFIED Status: Chronic Qualifiers: Hypothyroidism type: unspecified Qualified Code(s): E03.9 - Hypothyroidism , unspecified - Plan cont current plan of care, plan discussed w/ family * Nephrology following, continue dialysis tomorrow * Continue home medications * Likely discharge tomorrow after dialysis * CP r/o, stress test normal
[2018-07-01] MEDS ORDERED: ADENOSINE 60 MG/20 ML VIAL ONE (16:29)
[2018-07-02] MEDS: Levothyroxine Sodium 125 MCG TAB PO SCH (06:02)
[2018-07-02 06:48] LABS: #Basophils 0.1 thou/uL (0.0-0.2); #Eosinphils 0.2 thou/uL (0.0-0.7); #Monocytes 0.5 thou/uL (0.11-0.59); #Neutrophils 2.6 thou/uL (1.40-6.50); %Basophils 1.1 % (0.0-1.0); %Eosinophils 4.1 % (0.0-10.0); %Lymphocytes 37.6 % (21.0-51.0); %Monocytes 9.3 % (0.0-10.0); %Neutrophils 47.8 % (42.0-75.0); Hemoglobin 12.3 g/dL (12.0-16.0); Mean Corpuscular HGB CONC 33.3 g/dL (32.0-36.0); Mean Corpuscular Volume 96.1 fL (78.0-98.0); Mean Platelet Volume 6.7 fL (7.4-10.4); Platelet Count 136 thou/uL (130-400); RBC Distribution Width 14.7 % (11.5-14.5); Red Blood Cell (RBC) Count 3.83 mill/uL (4.20-5.40); White Blood Cell (WBC) Count 5.4 thou/uL (4.8-10.8)
[2018-07-02 07:08] LABS: Anion Gap 19 mmol/L (10-20); BUN (Urea Nitrogen) 63 mg/dL (9.8-20.1); Calc. Creatinine Clearance 7 mL/min (70-130); Calcium 8.6 mg/dL (7.8-10.44); Carbon Dioxide 26 mmol/L (22-29); Chloride 94 mmol/L (98-107); Estimated GFR-MDRD 5; Glucose 82 mg/dL (70-105); Potassium 5.7 mmol/L (3.5-5.1); Sodium 133 mmol/L (136-145)
[2018-07-02] MEDS: Metoprolol Tartrate 25 MG TAB PO SCH (08:58)
--- NOTE | 2018-07-02 12:12 | PRG ---
DATE OF SERVICE: 07/02/2018 SUBJECTIVE: Patient was seen and examined at bedside and overnight events noted. Patient denies any shortness of breath or chest pain or palpitation. No history of nausea or vomiting or diarrhea or fever or chills or cramps. OBJECTIVE: GENERAL: This is a 57-year-old female, in no apparent distress. VITAL SIGNS: Temperature 97.8. Pulse 61. Respiratory rate 16. Blood pressure 158/71. HEENT: Atraumatic, normocephalic. Oral mucosa is moist NECK: Supple. CARDIOVASCULAR: S1, S2 heard. Rate and rhythm regular. RESPIRATORY: Clear to auscultation. GASTROINTESTINAL: Abdomen is soft. MUSCULOSKELETAL: No tenderness. No edema. DERMATOLOGIC: No skin rash. NEUROLOGIC: Alert and awake and oriented X3. No focal neurologic deficits. Moving all the extremities. PSYCHIATRIC: Mood and affect normal. LABORATORY DATA: Potassium 5.7, BUN 63, creatinine 8.7. ASSESSMENT AND PLAN: 1. End-stage renal disease. Continue dialysis today and Saturday, Saturday, and Saturday. 2. Hyperkalemia. Limit potassium intake. 3. . Continue dialysis as tolerated. Job ID: [id number]
[2018-07-02 16:51] VITALS: BP 112/68; TEMP 98.3
== END 2018-07-02 17:28 | disposition home or self-care (01) ==
LOC: SCSER 06:28 → 2SW 08:10
PROVIDERS: ADMIT Family Medicine; ATTEND Family Medicine
DX: R07.9 Chest pain, unspecified (principal); E03.9 Hypothyroidism, unspecified; I12.0 Hypertensive chronic kidney disease with stage 5 chronic kidney disease or end stage renal disease; E11.22 Type 2 diabetes mellitus with diabetic chronic kidney disease; N18.6 End stage renal disease; E87.1 Hypo-osmolality and hyponatremia; E87.5 Hyperkalemia; D64.9 Anemia, unspecified; Z99.2 Dependence on renal dialysis; Z79.899 Other long term (current) drug therapy
CPT/HCPCS: 36415; 71045; 78452; 80048; 80053; 83880; 84443; 84484; 85025; 93005; 93017; 96365; 96375; A9500; G0378; J0153; J1815

== ENCOUNTER 2018-09-15 07:41 | Emergency (ER) | payer OTHER ==
[2018-09-15 09:10] LABS: #Basophils 0.1 thou/uL (0.0-0.2); #Eosinphils 0.3 thou/uL (0.0-0.7); #Lymphocytes 2.2 thou/uL (1.20-3.40); #Monocytes 0.5 thou/uL (0.11-0.59); #Neutrophils 1.8 thou/uL (1.40-6.50); %Basophils 2.1 % (0.0-1.0); %Eosinophils 5.5 % (0.0-10.0); %Lymphocytes 45.1 % (21.0-51.0); %Monocytes 10.3 % (0.0-10.0); %Neutrophils 37.1 % (42.0-75.0); Hemoglobin 8.8 g/dL (12.0-16.0); Mean Corpuscular Hemoglobin 32.4 pg (27.0-31.0); Mean Corpuscular Volume 95.4 fL (78.0-98.0); Mean Platelet Volume 6.9 fL (7.4-10.4); Platelet Count 93 thou/uL (130-400); RBC Distribution Width 14.1 % (11.5-14.5); Red Blood Cell (RBC) Count 2.72 mill/uL (4.20-5.40); White Blood Cell (WBC) Count 4.9 thou/uL (4.8-10.8)
[2018-09-15 09:30] LABS: ALT (SGPT) 9 U/L (8-55); AST (SGOT) 13 U/L (5-34); Albumin 3.4 g/dL (3.5-5.0); Alkaline Phosphatase 29 U/L (40-150); Anion Gap 22 mmol/L (10-20); BUN (Urea Nitrogen) 110 mg/dL (9.8-20.1); Bilirubin, Total 0.5 mg/dL (0.2-1.2); Calc. Creatinine Clearance 0 mL/min (70-130); Calcium 9.1 mg/dL (7.8-10.44); Carbon Dioxide 21 mmol/L (22-29); Chloride 91 mmol/L (98-107); Estimated GFR-MDRD 3; Globulin 2.7 g/dL (2.4-3.5); Glucose 82 mg/dL (70-105); Magnesium 2.6 mg/dL (1.6-2.6); Protein, Total 6.1 g/dL (6.0-8.3); Sodium 127 mmol/L (136-145)
[2018-09-15 09:35] LABS: Potassium 6.6 mmol/L (3.5-5.1)
== END 2018-09-15 10:00 | disposition home or self-care (01) ==
LOC: ERS 07:41
DX: R19.7 Diarrhea, unspecified (principal); I12.0 Hypertensive chronic kidney disease with stage 5 chronic kidney disease or end stage renal disease; N18.6 End stage renal disease; E87.5 Hyperkalemia; E03.9 Hypothyroidism, unspecified; Z79.899 Other long term (current) drug therapy
CPT/HCPCS: 36415; 80053; 83735; 85025; 93005

== ENCOUNTER 2022-04-23 19:03 | Inpatient (IN) | payer OTHER ==
[2022-04-23 20:24] LABS: Hemoglobin 7.3 g/dL (12.0-16.0); Mean Corpuscular HGB CONC 32.4 g/dL (32.0-36.0); Mean Corpuscular Hemoglobin 34.6 pg (27.0-31.0); Mean Platelet Volume 6.4 fL (7.4-10.4); Platelet Count 154 10x3/uL (130-400); RBC Distribution Width 17.2 % (11.5-14.5); White Blood Cell (WBC) Count 4.3 10x3/uL (4.8-10.8)
[2022-04-23 20:42] LABS: ALT (SGPT) 23 U/L (8-55); AST (SGOT) 36 U/L (5-34); Albumin 3.1 g/dL (3.5-5.0); Alkaline Phosphatase 82 U/L (40-110); Anion Gap 13 mmol/L (10-20); BUN (Urea Nitrogen) 16 mg/dL (9.8-20.1); Bilirubin, Total 0.8 mg/dL (0.2-1.2); Calc. Creatinine Clearance 0 mL/min (70-130); Calcium 9.5 mg/dL (7.8-10.44); Carbon Dioxide 29 mmol/L (22-29); Chloride 102 mmol/L (98-107); Estimated GFR 10; Globulin 3.4 g/dL (2.4-3.5); Glucose 112 mg/dL (70-105); Potassium 4.6 mmol/L (3.5-5.1); Protein, Total 6.5 g/dL (6.0-8.3); Sodium 139 mmol/L (136-145)
[2022-04-23 21:07] LABS: Anisocytosis SLIGHT = 6-15 cells (100X) (0-5/hpf); Band 2 % (5-11); Basophilic Stippling SLIGHT = 1-2 cells (100X) (None Seen); Eosinophils 25 % (0-10); Lymphocytes 14 % (21-51); MDiff Complete? YES; Macrocytosis SLIGHT = 6-15 cells (100X) (0-5/hpf); Monocytes 20 % (0-10); Neutrophil 35 % (42-75); Ovalocytes SLIGHT = 2-5 cells (100X) (0-1/hpf); Platelet Morphology Comment Appears Adequate; Polychromasia SLIGHT = 2-3 cells (100X) (0-2/hpf)
[2022-04-23 21:09] LABS: CKMB 0.9 ng/mL (0-6.6)
[2022-04-23] MEDS ORDERED: Aspirin 325 MG TAB ONE (21:48)
[2022-04-23 22:15] LABS: Actual Bicarbonate (HCO3v) 28 mEq/L (22-28); Analyzer IN Cardio ER; Calcium, Ionized (venous) 1.23 mmol/L (1.16-1.32); Chloride (VBG) 101 mmol/L (98-106); Hemoglobin (Hb) 8.6 g/dL (11.7-16.0); Sodium 134.8 mmol/L (133-146); pH (venous) 7.41 (7.32-7.43)
[2022-04-23 23:52] LABS: Critical Call Chem Troponin I RESULT DECREASING; Troponin I 0.225 ng/mL (< 0.028)
[2022-04-24] MEDS ORDERED: Ondansetron PF 4 MG/2 ML Vial IVP PRN (01:58)
[2022-04-24] MEDS ORDERED: Ondansetron ODT 4 MG TAB PO PRN (01:58)
[2022-04-24] MEDS ORDERED: GUAIFENESIN SF SOLN 200 MG/10 ML UDCUP PO PRN (02:37)
[2022-04-24] MEDS ORDERED: Benzonatate 100 MG CAP PO PRN (02:37)
[2022-04-24] MEDS ORDERED: Ipratropium/Albuterol 3 ML NEB NEB PRN (02:38)
[2022-04-24] MEDS ORDERED: Ipratropium/Albuterol 3 ML NEB NEB SCH (02:45)
[2022-04-24 02:50] LABS: Troponin I 0.229 ng/mL (< 0.028)
[2022-04-24] MEDS ORDERED: Ipratropium/Albuterol 3 ML NEB ONE (03:09)
[2022-04-24 05:55] LABS: #Basophils 0.1 thou/uL (0.0-0.2); #Lymphocytes 1.2 thou/uL (1.20-3.40); #Monocytes 0.6 thou/uL (0.11-0.59); #Neutrophils 1.3 thou/uL (1.40-6.50); %Basophils 2.1 % (0.0-1.0); %Lymphocytes 28.2 % (21.0-51.0); %Monocytes 14.2 % (0.0-10.0); %Neutrophils 31.5 % (42.0-75.0); Hemoglobin 10.4 g/dL (12.0-16.0); Mean Corpuscular HGB CONC 33.5 g/dL (32.0-36.0); Mean Corpuscular Hemoglobin 33.6 pg (27.0-31.0); Mean Platelet Volume 6.9 fL (7.4-10.4); Platelet Count 146 10x3/uL (130-400); RBC Distribution Width 17.6 % (11.5-14.5); Red Blood Cell (RBC) Count 3.09 mill/uL (4.20-5.40); White Blood Cell (WBC) Count 4.2 10x3/uL (4.8-10.8)
[2022-04-24 06:12] LABS: Anion Gap 10 mmol/L (10-20); BUN (Urea Nitrogen) 6 mg/dL (9.8-20.1); Calc. Creatinine Clearance 0 mL/min (70-130); Calcium 9.3 mg/dL (7.8-10.44); Carbon Dioxide 32 mmol/L (22-29); Cardiac Risk 4.3 (Less than 4.5); Chloride 101 mmol/L (98-107); Cholesterol 124 mg/dl (< 200 Desired); Estimated GFR 21; Glucose 64 mg/dL (70-105); HDL Cholesterol 29 mg/dL (>60 Neg Risk); LDL Cholesterol, Calculated 78 mg/dL; Potassium 3.5 mmol/L (3.5-5.1); Sodium 139 mmol/L (136-145); Triglycerides 85 mg/dL (Less than 150)
[2022-04-24 06:17] LABS: Critical Call Chem Troponin I RESULT DECREASING; Troponin I 0.219 ng/mL (< 0.028)
[2022-04-24] MEDS: Levothyroxine Sodium 125 MCG TAB PO SCH (11:29)
[2022-04-24 14:43] LABS: SARS-CoV-2 NAA Rapid Test Not Detected (NotDetected)
[2022-04-24] MEDS: Metoprolol Tartrate 25 MG TAB PO SCH (21:43)
[2022-04-24] MEDS: hydrALAZINE 20 MG/ML VIAL SLOW IVP PRN (21:43)
[2022-04-25 04:54] LABS: #Basophils 0.1 thou/uL (0.0-0.2); #Eosinphils 1.1 thou/uL (0.0-0.7); #Lymphocytes 1.2 thou/uL (1.20-3.40); #Monocytes 0.7 thou/uL (0.11-0.59); #Neutrophils 1.7 thou/uL (1.40-6.50); %Basophils 2.4 % (0.0-1.0); %Eosinophils 22.3 % (0.0-10.0); %Lymphocytes 25.6 % (21.0-51.0); %Monocytes 14.3 % (0.0-10.0); %Neutrophils 35.5 % (42.0-75.0); Hemoglobin 10.9 g/dL (12.0-16.0); Mean Corpuscular HGB CONC 32.5 g/dL (32.0-36.0); Mean Platelet Volume 6.4 fL (7.4-10.4); Platelet Count 177 10x3/uL (130-400); White Blood Cell (WBC) Count 4.8 10x3/uL (4.8-10.8)
[2022-04-25 05:15] LABS: Anion Gap 12 mmol/L (10-20); BUN (Urea Nitrogen) 15 mg/dL (9.8-20.1); Calc. Creatinine Clearance 13 mL/min (70-130); Calcium 9.5 mg/dL (7.8-10.44); Carbon Dioxide 28 mmol/L (22-29); Chloride 102 mmol/L (98-107); Estimated GFR 11; Glucose 54 mg/dL (70-105); Potassium 4.4 mmol/L (3.5-5.1); Sodium 138 mmol/L (136-145)
[2022-04-25] MEDS ORDERED: Dextrose 5% in Water 1,000 ML IV PRN (05:46)
[2022-04-25] MEDS ORDERED: Dextrose 50% Abboject 50 ML SYRINGE SLOW IVP PRN (05:46)
[2022-04-25] MEDS: Levothyroxine Sodium 125 MCG TAB PO SCH (05:53)
[2022-04-25] MEDS: NIFEdipine XL 30 MG TAB PO SCH (09:29)
[2022-04-25] MEDS: Metoprolol Tartrate 25 MG TAB PO SCH ×2 (09:29→22:40)
[2022-04-25] MEDS ORDERED: Heparin 10,000 UNITS/ 10 ML VIAL ONE (12:37)
[2022-04-26 04:54] LABS: Anion Gap 16 mmol/L (10-20); BUN (Urea Nitrogen) 27 mg/dL (9.8-20.1); Calc. Creatinine Clearance 9 mL/min (70-130); Calcium 9.8 mg/dL (7.8-10.44); Carbon Dioxide 26 mmol/L (22-29); Chloride 103 mmol/L (98-107); Estimated GFR 7; Glucose 68 mg/dL (70-105); Potassium 4.7 mmol/L (3.5-5.1); Sodium 140 mmol/L (136-145)
[2022-04-26 05:24] LABS: Anisocytosis SLIGHT = 6-15 cells (100X) (0-5/hpf); Band 1 % (5-11); Eosinophils 12 % (0-10); Lymphocytes 28 % (21-51); MDiff Complete? YES; Macrocytosis SLIGHT = 6-15 cells (100X) (0-5/hpf); Mean Corpuscular HGB CONC 33.3 g/dL (32.0-36.0); Mean Platelet Volume 6.5 fL (7.4-10.4); Monocytes 17 % (0-10); Neutrophil 41 % (42-75); Ovalocytes SLIGHT = 2-5 cells (100X) (0-1/hpf); Platelet Count 153 10x3/uL (130-400); Platelet Morphology Comment Appears Adequate; RBC Distribution Width 17.5 % (11.5-14.5); Red Blood Cell (RBC) Count 3.24 mill/uL (4.20-5.40); White Blood Cell (WBC) Count 4.4 10x3/uL (4.8-10.8)
[2022-04-26] MEDS: Levothyroxine Sodium 125 MCG TAB PO SCH (07:23)
[2022-04-26] MEDS: NIFEdipine XL 30 MG TAB PO SCH (08:48)
[2022-04-26] MEDS: Metoprolol Tartrate 25 MG TAB PO SCH ×2 (08:48→21:47)
[2022-04-26] MEDS: Acetaminophen 325 MG TAB PO PRN (21:49)
[2022-04-27 05:13] LABS: Anion Gap 10 mmol/L (10-20); BUN (Urea Nitrogen) 16 mg/dL (9.8-20.1); Calc. Creatinine Clearance 12 mL/min (70-130); Calcium 9.4 mg/dL (7.8-10.44); Carbon Dioxide 27 mmol/L (22-29); Chloride 103 mmol/L (98-107); Estimated GFR 11; Glucose 65 mg/dL (70-105); Potassium 4.2 mmol/L (3.5-5.1); Sodium 136 mmol/L (136-145)
[2022-04-27 05:53] LABS: Band 5 % (5-11); Eosinophils 6 % (0-10); Hemoglobin 10.8 g/dL (12.0-16.0); Hypochromia SLIGHT = 6-15 cells (100X) (0-5/hpf); Lymphocytes 40 % (21-51); MDiff Complete? YES; Macrocytosis SLIGHT = 6-15 cells (100X) (0-5/hpf); Mean Corpuscular HGB CONC 31.6 g/dL (32.0-36.0); Mean Corpuscular Hemoglobin 32.7 pg (27.0-31.0); Mean Platelet Volume 6.3 fL (7.4-10.4); Monocytes 10 % (0-10); Neutrophil 39 % (42-75); Platelet Count 154 10x3/uL (130-400); Platelet Morphology Comment Appears Adequate; RBC Distribution Width 17.3 % (11.5-14.5); Red Blood Cell (RBC) Count 3.32 mill/uL (4.20-5.40); White Blood Cell (WBC) Count 4.2 10x3/uL (4.8-10.8)
[2022-04-27] MEDS: Levothyroxine Sodium 125 MCG TAB PO SCH (06:42)
[2022-04-27] MEDS ORDERED: Regadenoson 0.4 MG/5 ML SYRINGE ONE (09:55)
[2022-04-27] MEDS: NIFEdipine XL 30 MG TAB PO SCH (11:53)
[2022-04-27] MEDS: Metoprolol Tartrate 25 MG TAB PO SCH ×3 (11:53→22:38)
[2022-04-27] MEDS ORDERED: Cosyntropin 250 MCG VIAL SLOW IVP SCH (17:00)
[2022-04-27] MEDS ORDERED: Thiamine 100 MG TAB PO SCH (18:30)
[2022-04-27] MEDS: hydrALAZINE 20 MG/ML VIAL SLOW IVP PRN (19:28)
[2022-04-27] MEDS: Heparin 5,000 UNITS/ML VIAL SC SCH (22:00)
[2022-04-27] MEDS: Acetaminophen 325 MG TAB PO PRN (22:28)
[2022-04-28] MEDS: Levothyroxine Sodium 125 MCG TAB PO SCH (05:01)
[2022-04-28 05:53] LABS: ALT (SGPT) 20 U/L (8-55); AST (SGOT) 33 U/L (5-34); Albumin 2.9 g/dL (3.5-5.0); Alkaline Phosphatase 77 U/L (40-110); Anion Gap 14 mmol/L (10-20); BUN (Urea Nitrogen) 26 mg/dL (9.8-20.1); Bilirubin, Total 0.8 mg/dL (0.2-1.2); Calc. Creatinine Clearance 8 mL/min (70-130); Calcium 9.9 mg/dL (7.8-10.44); Carbon Dioxide 24 mmol/L (22-29); Chloride 101 mmol/L (98-107); Estimated GFR 7; Glucose 67 mg/dL (70-105); Potassium 5.1 mmol/L (3.5-5.1); Protein, Total 6.9 g/dL (6.0-8.3); Sodium 134 mmol/L (136-145)
[2022-04-28 08:42] VITALS: BMI 19.2
[2022-04-28] MEDS: Heparin 5,000 UNITS/ML VIAL SC SCH ×2 (08:56→21:05)
[2022-04-28] MEDS ORDERED: Heparin 10,000 UNITS/ 10 ML VIAL ONE (10:21)
[2022-04-28] MEDS: Metoprolol Tartrate 25 MG TAB PO SCH ×2 (14:23→21:04)
[2022-04-28] MEDS: Folic Acid/Vit B Comp W-C PO SCH (14:23)
[2022-04-28] MEDS: NIFEdipine XL 30 MG TAB PO SCH (14:23)
[2022-04-28] MEDS: Thiamine 100 MG TAB PO SCH (14:24)
[2022-04-28 14:45] LABS: Magnesium 1.9 mg/dL (1.6-2.6)
[2022-04-29] MEDS: Levothyroxine Sodium 125 MCG TAB PO SCH (05:07)
[2022-04-29] MEDS: hydrALAZINE 20 MG/ML VIAL SLOW IVP PRN ×2 (05:07→20:33)
[2022-04-29] MEDS: Acetaminophen 325 MG TAB PO PRN (05:07)
[2022-04-29 06:11] LABS: Hemoglobin 10.9 g/dL (12.0-16.0); Mean Corpuscular HGB CONC 32.3 g/dL (32.0-36.0); Mean Corpuscular Hemoglobin 32.9 pg (27.0-31.0); Mean Platelet Volume 6.7 fL (7.4-10.4); Platelet Count 143 10x3/uL (130-400); RBC Distribution Width 17.1 % (11.5-14.5); Red Blood Cell (RBC) Count 3.29 mill/uL (4.20-5.40); White Blood Cell (WBC) Count 3.9 10x3/uL (4.8-10.8)
[2022-04-29 06:24] LABS: ALT (SGPT) 19 U/L (8-55); AST (SGOT) 27 U/L (5-34); Albumin 2.9 g/dL (3.5-5.0); Alkaline Phosphatase 73 U/L (40-110); Anion Gap 12 mmol/L (10-20); BUN (Urea Nitrogen) 22 mg/dL (9.8-20.1); Bilirubin, Total 0.8 mg/dL (0.2-1.2); Calc. Creatinine Clearance 11 mL/min (70-130); Calcium 9.8 mg/dL (7.8-10.44); Carbon Dioxide 26 mmol/L (22-29); Estimated GFR 10; Glucose 99 mg/dL (70-105); Protein, Total 6.9 g/dL (6.0-8.3); Sodium 137 mmol/L (136-145)
[2022-04-29 06:33] LABS: Chloride 103 mmol/L (98-107)
[2022-04-29 07:01] LABS: Band 4 % (5-11); Eosinophils 12 % (0-10); Lymphocytes 30 % (21-51); MDiff Complete? YES; Monocytes 16 % (0-10); Neutrophil 38 % (42-75)
[2022-04-29] MEDS: Folic Acid/Vit B Comp W-C PO SCH (08:34)
[2022-04-29] MEDS: Metoprolol Tartrate 25 MG TAB PO SCH ×2 (08:34→20:33)
[2022-04-29] MEDS: NIFEdipine XL 30 MG TAB PO SCH (08:35)
[2022-04-29] MEDS: Thiamine 100 MG TAB PO SCH (08:35)
[2022-04-29] MEDS: Heparin 5,000 UNITS/ML VIAL SC SCH ×2 (08:36→20:33)
[2022-04-30] MEDS: Levothyroxine Sodium 125 MCG TAB PO SCH (05:43)
[2022-04-30] MEDS: Acetaminophen 325 MG TAB PO PRN ×2 (05:53→20:52)
[2022-04-30 05:55] LABS: ALT (SGPT) 15 U/L (8-55); AST (SGOT) 28 U/L (5-34); Albumin 2.9 g/dL (3.5-5.0); Alkaline Phosphatase 68 U/L (40-110); Anion Gap 13 mmol/L (10-20); BUN (Urea Nitrogen) 51 mg/dL (9.8-20.1); Bilirubin, Total 0.6 mg/dL (0.2-1.2); Calc. Creatinine Clearance 8 mL/min (70-130); Carbon Dioxide 28 mmol/L (22-29); Chloride 101 mmol/L (98-107); Estimated GFR 7; Globulin 3.8 g/dL (2.4-3.5); Glucose 155 mg/dL (70-105); Potassium 4.5 mmol/L (3.5-5.1); Protein, Total 6.7 g/dL (6.0-8.3); Sodium 137 mmol/L (136-145)
[2022-04-30 06:01] LABS: #Basophils 0.1 thou/uL (0.0-0.2); #Eosinphils 0.1 thou/uL (0.0-0.7); #Lymphocytes 1.2 thou/uL (1.20-3.40); #Monocytes 0.5 thou/uL (0.11-0.59); #Neutrophils 1.8 thou/uL (1.40-6.50); %Eosinophils 3.7 % (0.0-10.0); %Lymphocytes 32.6 % (21.0-51.0); %Monocytes 13.6 % (0.0-10.0); %Neutrophils 48.2 % (42.0-75.0); Hemoglobin 10.8 g/dL (12.0-16.0); Mean Corpuscular HGB CONC 32.4 g/dL (32.0-36.0); Mean Corpuscular Hemoglobin 33.4 pg (27.0-31.0); Mean Platelet Volume 7.2 fL (7.4-10.4); Platelet Count 132 10x3/uL (130-400); RBC Distribution Width 16.7 % (11.5-14.5); Red Blood Cell (RBC) Count 3.24 mill/uL (4.20-5.40); White Blood Cell (WBC) Count 3.8 10x3/uL (4.8-10.8)
[2022-04-30] MEDS ORDERED: Ipratropium/Albuterol 3 ML NEB NEB PRN (08:30)
[2022-04-30] MEDS: Thiamine 100 MG TAB PO SCH (08:33)
[2022-04-30] MEDS: Metoprolol Tartrate 25 MG TAB PO SCH ×2 (08:33→20:52)
[2022-04-30] MEDS: Heparin 5,000 UNITS/ML VIAL SC SCH ×2 (08:33→20:51)
[2022-04-30] MEDS: NIFEdipine XL 30 MG TAB PO SCH (08:34)
[2022-04-30] MEDS: Folic Acid/Vit B Comp W-C PO SCH (10:10)
[2022-04-30] MEDS: hydrALAZINE 20 MG/ML VIAL SLOW IVP PRN (10:10)
[2022-04-30] MEDS ORDERED: Losartan 25 MG TAB PO SCH (15:15)
[2022-04-30] MEDS: hydrALAZINE 25 MG TAB PO SCH (20:52)
[2022-05-01] MEDS: Levothyroxine Sodium 125 MCG TAB PO SCH (05:29)
[2022-05-01 05:39] LABS: #Basophils 0.1 thou/uL (0.0-0.2); #Eosinphils 0.4 thou/uL (0.0-0.7); #Lymphocytes 1.3 thou/uL (1.20-3.40); #Monocytes 0.6 thou/uL (0.11-0.59); #Neutrophils 1.8 thou/uL (1.40-6.50); %Basophils 2.8 % (0.0-1.0); %Eosinophils 9.9 % (0.0-10.0); %Lymphocytes 30.6 % (21.0-51.0); %Monocytes 14.5 % (0.0-10.0); %Neutrophils 42.2 % (42.0-75.0); Hemoglobin 10.1 g/dL (12.0-16.0); Mean Corpuscular HGB CONC 33.1 g/dL (32.0-36.0); Mean Corpuscular Hemoglobin 34.2 pg (27.0-31.0); Mean Platelet Volume 7.2 fL (7.4-10.4); Platelet Count 124 10x3/uL (130-400); RBC Distribution Width 16.5 % (11.5-14.5); Red Blood Cell (RBC) Count 2.95 mill/uL (4.20-5.40); White Blood Cell (WBC) Count 4.1 10x3/uL (4.8-10.8)
[2022-05-01 05:57] LABS: ALT (SGPT) 21 U/L (8-55); AST (SGOT) 34 U/L (5-34); Albumin 2.8 g/dL (3.5-5.0); Alkaline Phosphatase 70 U/L (40-110); Anion Gap 14 mmol/L (10-20); BUN (Urea Nitrogen) 89 mg/dL (9.8-20.1); Bilirubin, Total 0.6 mg/dL (0.2-1.2); Calc. Creatinine Clearance 6 mL/min (70-130); Calcium 10.1 mg/dL (7.8-10.44); Carbon Dioxide 27 mmol/L (22-29); Chloride 101 mmol/L (98-107); Estimated GFR 5; Globulin 3.8 g/dL (2.4-3.5); Glucose 84 mg/dL (70-105); Potassium 4.4 mmol/L (3.5-5.1); Protein, Total 6.6 g/dL (6.0-8.3); Sodium 138 mmol/L (136-145)
[2022-05-01] MEDS: Heparin 5,000 UNITS/ML VIAL SC SCH ×2 (08:52→21:25)
[2022-05-01] MEDS: Folic Acid/Vit B Comp W-C PO SCH (08:52)
[2022-05-01] MEDS: Acetaminophen 325 MG TAB PO PRN (08:55)
[2022-05-01 09:08] LABS: HBSAg Index 0.22 S/CO (0-0.99); Hep B Surf Ag Non-Reactive S/CO (NonReactive)
[2022-05-01] MEDS ORDERED: Heparin 10,000 UNITS/ 10 ML VIAL ONE (10:13)
[2022-05-01] MEDS: hydrALAZINE 25 MG TAB PO SCH ×3 (13:26→21:23)
[2022-05-01] MEDS: Losartan 25 MG TAB PO SCH (13:29)
[2022-05-01] MEDS: Thiamine 100 MG TAB PO SCH (13:29)
[2022-05-01] MEDS: Metoprolol Tartrate 25 MG TAB PO SCH ×2 (13:29→21:23)
[2022-05-02] MEDS: Levothyroxine Sodium 125 MCG TAB PO SCH (05:25)
[2022-05-02 05:48] LABS: Mean Corpuscular HGB CONC 31.7 g/dL (32.0-36.0); Mean Platelet Volume 7.2 fL (7.4-10.4); Platelet Count 126 10x3/uL (130-400); RBC Distribution Width 16.7 % (11.5-14.5); Red Blood Cell (RBC) Count 3.33 mill/uL (4.20-5.40); White Blood Cell (WBC) Count 4.9 10x3/uL (4.8-10.8)
[2022-05-02 05:55] LABS: ALT (SGPT) 24 U/L (8-55); AST (SGOT) 42 U/L (5-34); Albumin 2.8 g/dL (3.5-5.0); Alkaline Phosphatase 65 U/L (40-110); Anion Gap 11 mmol/L (10-20); BUN (Urea Nitrogen) 54 mg/dL (9.8-20.1); Bilirubin, Total 0.7 mg/dL (0.2-1.2); Calc. Creatinine Clearance 10 mL/min (70-130); Calcium 9.3 mg/dL (7.8-10.44); Carbon Dioxide 28 mmol/L (22-29); Chloride 102 mmol/L (98-107); Estimated GFR 9; Globulin 3.8 g/dL (2.4-3.5); Glucose 63 mg/dL (70-105); Potassium 4.3 mmol/L (3.5-5.1); Protein, Total 6.6 g/dL (6.0-8.3); Sodium 137 mmol/L (136-145)
[2022-05-02 06:38] LABS: Band 5 % (5-11); Eosinophils 13 % (0-10); Lymphocytes 23 % (21-51); MDiff Complete? YES; Monocytes 8 % (0-10); Neutrophil 49 % (42-75)
[2022-05-02] MEDS: Losartan 25 MG TAB PO SCH (09:09)
[2022-05-02] MEDS: hydrALAZINE 25 MG TAB PO SCH ×3 (09:09→22:04)
[2022-05-02] MEDS: Thiamine 100 MG TAB PO SCH (09:09)
[2022-05-02] MEDS: Folic Acid/Vit B Comp W-C PO SCH (09:09)
[2022-05-02] MEDS: Heparin 5,000 UNITS/ML VIAL SC SCH ×2 (09:09→22:09)
[2022-05-02] MEDS: Metoprolol Tartrate 25 MG TAB PO SCH ×2 (09:09→22:04)
[2022-05-02] MEDS ORDERED: Hydrocortisone 10 mg Tablet PO SCH (16:15)
[2022-05-02] MEDS: Nystatin 500,000 UNITS/5 ML UDCUP SSW SCH ×2 (18:55→22:04)
[2022-05-03] MEDS: Levothyroxine Sodium 125 MCG TAB PO SCH (05:08)
[2022-05-03] MEDS: Hydrocortisone 10 mg Tablet PO SCH ×2 (05:08→13:06)
[2022-05-03 05:51] LABS: Hemoglobin 11.2 g/dL (12.0-16.0); Mean Corpuscular HGB CONC 32.6 g/dL (32.0-36.0); Mean Corpuscular Hemoglobin 33.7 pg (27.0-31.0); Mean Platelet Volume 7.3 fL (7.4-10.4); Platelet Count 125 10x3/uL (130-400); RBC Distribution Width 16.5 % (11.5-14.5); Red Blood Cell (RBC) Count 3.31 mill/uL (4.20-5.40); White Blood Cell (WBC) Count 4.9 10x3/uL (4.8-10.8)
[2022-05-03 06:05] LABS: ALT (SGPT) 24 U/L (8-55); AST (SGOT) 36 U/L (5-34); Albumin 2.8 g/dL (3.5-5.0); Alkaline Phosphatase 70 U/L (40-110); Anion Gap 14 mmol/L (10-20); BUN (Urea Nitrogen) 67 mg/dL (9.8-20.1); Bilirubin, Total 0.6 mg/dL (0.2-1.2); Calc. Creatinine Clearance 7 mL/min (70-130); Calcium 9.7 mg/dL (7.8-10.44); Carbon Dioxide 26 mmol/L (22-29); Chloride 101 mmol/L (98-107); Estimated GFR 6; Globulin 3.8 g/dL (2.4-3.5); Glucose 63 mg/dL (70-105); Potassium 5.1 mmol/L (3.5-5.1); Protein, Total 6.6 g/dL (6.0-8.3); Sodium 136 mmol/L (136-145)
[2022-05-03 06:16] LABS: Band 2 % (5-11); Eosinophils 6 % (0-10); Lymphocytes 26 % (21-51); MDiff Complete? YES; Macrocytosis SLIGHT = 6-15 cells (100X) (0-5/hpf); Monocytes 16 % (0-10); Neutrophil 50 % (42-75)
[2022-05-03] MEDS ORDERED: Heparin 10,000 UNITS/ 10 ML VIAL ONE (08:28)
[2022-05-03] MEDS: Metoprolol Tartrate 25 MG TAB PO SCH ×2 (13:05→21:18)
[2022-05-03] MEDS: hydrALAZINE 25 MG TAB PO SCH ×3 (13:05→21:18)
[2022-05-03] MEDS: Folic Acid/Vit B Comp W-C PO SCH (13:05)
[2022-05-03] MEDS: Thiamine 100 MG TAB PO SCH (13:06)
[2022-05-03] MEDS: Nystatin 500,000 UNITS/5 ML UDCUP SSW SCH ×4 (13:06→21:18)
[2022-05-03] MEDS: Heparin 5,000 UNITS/ML VIAL SC SCH ×2 (13:06→21:19)
[2022-05-04 05:17] LABS: Hemoglobin 10.9 g/dL (12.0-16.0); Mean Corpuscular HGB CONC 32.5 g/dL (32.0-36.0); Mean Corpuscular Hemoglobin 33.6 pg (27.0-31.0); Platelet Count 140 10x3/uL (130-400); RBC Distribution Width 16.4 % (11.5-14.5); Red Blood Cell (RBC) Count 3.23 mill/uL (4.20-5.40); White Blood Cell (WBC) Count 4.5 10x3/uL (4.8-10.8)
[2022-05-04 05:36] LABS: ALT (SGPT) 23 U/L (8-55); AST (SGOT) 28 U/L (5-34); Albumin 2.8 g/dL (3.5-5.0); Alkaline Phosphatase 70 U/L (40-110); Anion Gap 12 mmol/L (10-20); BUN (Urea Nitrogen) 52 mg/dL (9.8-20.1); Bilirubin, Total 0.6 mg/dL (0.2-1.2); Calc. Creatinine Clearance 10 mL/min (70-130); Calcium 9.9 mg/dL (7.8-10.44); Carbon Dioxide 28 mmol/L (22-29); Chloride 102 mmol/L (98-107); Estimated GFR 9; Globulin 3.9 g/dL (2.4-3.5); Glucose 80 mg/dL (70-105); Potassium 4.3 mmol/L (3.5-5.1); Protein, Total 6.7 g/dL (6.0-8.3); Sodium 138 mmol/L (136-145)
[2022-05-04 05:52] LABS: Band 2 % (5-11); Eosinophils 3 % (0-10); Hypochromia SLIGHT = 6-15 cells (100X) (0-5/hpf); Lymphocytes 40 % (21-51); MDiff Complete? YES; Monocytes 13 % (0-10); Neutrophil 42 % (42-75); Platelet Morphology Comment Appears Adequate
[2022-05-04] MEDS: Hydrocortisone 10 mg Tablet PO SCH ×2 (05:52→12:36)
[2022-05-04] MEDS: Levothyroxine Sodium 125 MCG TAB PO SCH (05:52)
[2022-05-04] MEDS: Nystatin 500,000 UNITS/5 ML UDCUP SSW SCH ×2 (08:24→12:36)
[2022-05-04] MEDS: Folic Acid/Vit B Comp W-C PO SCH (08:24)
[2022-05-04] MEDS: Metoprolol Tartrate 25 MG TAB PO SCH (08:24)
[2022-05-04] MEDS: Thiamine 100 MG TAB PO SCH (08:24)
[2022-05-04] MEDS: hydrALAZINE 25 MG TAB PO SCH (08:24)
[2022-05-04] MEDS: Heparin 5,000 UNITS/ML VIAL SC SCH (08:24)
[2022-05-04 08:30] VITALS: BP 205/87; TEMP 98.4
== END 2022-05-04 15:01 | disposition home or self-care (01) | DRG 280 ==
LOC: ERS 19:03 → ERHOLD 22:40 → 2NO 04-24 20:41 → MSONC 04-27 22:05
PROVIDERS: ADMIT Internal Medicine; ATTEND Internal Medicine
PROC: 30233N1 Transfusion of Nonautologous Red Blood Cells into Peripheral Vein, Percutaneous Approach (ICD-10-PCS; 2022-04-23)
PROC: 5A1D70Z Performance of Urinary Filtration, Intermittent, Less than 6 Hours Per Day (ICD-10-PCS; principal; 2022-04-24)
DX: I13.2 Hypertensive heart and chronic kidney disease with heart failure and with stage 5 chronic kidney disease, or end stage renal disease (principal); I50.33 Acute on chronic diastolic (congestive) heart failure; I21.A1 Myocardial infarction type 2; J96.01 Acute respiratory failure with hypoxia; N18.6 End stage renal disease; Z20.822 Contact with and (suspected) exposure to COVID-19; D63.1 Anemia in chronic kidney disease; I34.0 Nonrheumatic mitral (valve) insufficiency; E03.9 Hypothyroidism, unspecified; I73.9 Peripheral vascular disease, unspecified; E16.2 Hypoglycemia, unspecified; Z86.74 Personal history of sudden cardiac arrest; Z90.710 Acquired absence of both cervix and uterus; Z79.890 Hormone replacement therapy; Z79.899 Other long term (current) drug therapy; Z99.2 Dependence on renal dialysis
CPT/HCPCS: 36415; 36416; 36430; 70450; 70551; 71045; 78452; 80048; 80053; 80061; 80400; 82533; 82553; 82805; 83735; 83880; 84439; 84443; 84484; 85025; 86850; 86900; 86901; 87340; 87811; 90935; 93005; 93017; 93306; 93923; 94640; 94760; 97139; A9500; G0257; J0360; J0834; J1644; J2405; J2785; J7620; P9016; U0002

== ENCOUNTER 2022-05-11 15:41 | Emergency (ER) | payer OTHER ==
[2022-05-11 16:21] LABS: #Basophils 0.1 thou/uL (0.0-0.2); #Eosinphils 0.7 thou/uL (0.0-0.7); #Lymphocytes 0.9 thou/uL (1.20-3.40); #Monocytes 0.4 thou/uL (0.11-0.59); #Neutrophils 2.9 thou/uL (1.40-6.50); %Eosinophils 13.5 % (0.0-10.0); %Lymphocytes 17.9 % (21.0-51.0); %Monocytes 8.7 % (0.0-10.0); Hemoglobin 11.9 g/dL (12.0-16.0); Mean Corpuscular HGB CONC 32.1 g/dL (32.0-36.0); Mean Corpuscular Hemoglobin 32.5 pg (27.0-31.0); Mean Platelet Volume 7.1 fL (7.4-10.4); Platelet Count 102 10x3/uL (130-400); RBC Distribution Width 15.1 % (11.5-14.5); Red Blood Cell (RBC) Count 3.65 mill/uL (4.20-5.40); White Blood Cell (WBC) Count 4.9 10x3/uL (4.8-10.8)
[2022-05-11 16:32] LABS: Prothrombin Time 13.8 sec (12.0-14.7)
[2022-05-11 16:39] LABS: ALT (SGPT) 15 U/L (8-55); AST (SGOT) 22 U/L (5-34); Alkaline Phosphatase 64 U/L (40-110); Anion Gap 15 mmol/L (10-20); BUN (Urea Nitrogen) 31 mg/dL (9.8-20.1); Bilirubin, Total 0.6 mg/dL (0.2-1.2); Calc. Creatinine Clearance 0 mL/min (70-130); Calcium 9.7 mg/dL (7.8-10.44); Carbon Dioxide 24 mmol/L (22-29); Chloride 98 mmol/L (98-107); Estimated GFR 10; Globulin 4.5 g/dL (2.4-3.5); Glucose 106 mg/dL (70-105); Potassium 4.9 mmol/L (3.5-5.1); Protein, Total 7.5 g/dL (6.0-8.3); Sodium 132 mmol/L (136-145)
== END 2022-05-11 17:36 ==
LOC: ERS 15:41
DX: T82.838A Hemorrhage due to vascular prosthetic devices, implants and grafts, initial encounter (principal); I10 Essential (primary) hypertension
CPT/HCPCS: 36415; 71045; 80053; 83880; 85025; 85610; 85730

== ENCOUNTER 2022-05-18 17:26 | Inpatient (IN) | payer OTHER ==
[2022-05-18] MEDS ORDERED: Ondansetron ODT 4 MG TAB PO PRN (21:11)
[2022-05-18] MEDS ORDERED: Ondansetron PF 4 MG/2 ML Vial IVP PRN (21:11)
[2022-05-18] MEDS ORDERED: HYDROcodone/Acetaminophen 5/325 mg Tablet PO PRN (21:11)
[2022-05-18] MEDS ORDERED: Acetaminophen 325 MG TAB PO PRN (21:11)
[2022-05-18] MEDS ORDERED: Meropenem 1 GM in Sodium Chloride 0.9% 100 ML IVPB SCH ×2 (22:00→23:00)
[2022-05-18 22:07] VITALS: BMI 23.1
[2022-05-18] MEDS ORDERED: Vancomycin Hemodialysis Sliding Scale FS SCH (22:30)
[2022-05-19 02:50] LABS: #Eosinphils 0.2 thou/uL (0.0-0.7); #Lymphocytes 0.9 thou/uL (1.20-3.40); #Monocytes 1.1 thou/uL (0.11-0.59); #Neutrophils 12.9 thou/uL (1.40-6.50); %Basophils 0.3 % (0.0-1.0); %Eosinophils 1.2 % (0.0-10.0); %Lymphocytes 6.2 % (21.0-51.0); %Monocytes 7.3 % (0.0-10.0); Hemoglobin 9.5 g/dL (12.0-16.0); Mean Corpuscular HGB CONC 31.7 g/dL (32.0-36.0); Mean Corpuscular Hemoglobin 32.9 pg (27.0-31.0); Mean Platelet Volume 6.7 fL (7.4-10.4); Platelet Count 101 10x3/uL (130-400); RBC Distribution Width 14.8 % (11.5-14.5); Red Blood Cell (RBC) Count 2.88 mill/uL (4.20-5.40); White Blood Cell (WBC) Count 15.1 10x3/uL (4.8-10.8)
[2022-05-19 02:58] LABS: Anion Gap 14 mmol/L (10-20); BUN (Urea Nitrogen) 27 mg/dL (9.8-20.1); Calc. Creatinine Clearance 11 mL/min (70-130); Carbon Dioxide 26 mmol/L (22-29); Chloride 100 mmol/L (98-107); Sodium 135 mmol/L (136-145)
[2022-05-19 02:59] LABS: ALT (SGPT) 15 U/L (8-55); AST (SGOT) 22 U/L (5-34); Albumin 2.5 g/dL (3.5-5.0); Alkaline Phosphatase 67 U/L (40-110); Bilirubin, Total 0.5 mg/dL (0.2-1.2); Calcium 9.3 mg/dL (7.8-10.44); Estimated GFR 9; Globulin 3.6 g/dL (2.4-3.5); Glucose 98 mg/dL (70-105); Protein, Total 6.1 g/dL (6.0-8.3)
[2022-05-19 03:05] LABS: Critical Call Chem Troponin I RESULT DECREASING; Troponin I 0.276 ng/mL (< 0.028)
[2022-05-19] MEDS: Meropenem 500 MG in Sodium Chloride 0.9% 100 ML IVPB SCH (05:03)
[2022-05-19] MEDS: Levothyroxine Sodium 100 MCG TAB PO SCH (05:03)
[2022-05-19] MEDS: Metoprolol Tartrate 25 MG TAB PO SCH ×2 (08:35→21:13)
[2022-05-19] MEDS: Aspirin 81 mg Enteric Coated Tablet PO SCH (08:35)
[2022-05-19] MEDS ORDERED: Vancomycin 1 GM in Premix Bag 1 BAG IVPB SCH (09:00)
[2022-05-19] MEDS: hydrALAZINE 25 MG TAB PO SCH ×3 (09:11→21:13)
[2022-05-19] MEDS: Folic Acid/Vit B Comp W-C PO SCH (09:11)
[2022-05-19 15:34] LABS: RBC Count-Automated (BF) 789 /cu.mm; WBC/Nucleated-Auto (BF) 70 /cu.mm
[2022-05-19 15:42] LABS: Pleural Fluid, Protein 3.3 g/dL
[2022-05-19 15:50] LABS: BF Color Yellow; Body Fluid Source Pleural Fluid; Clarity Hazy (Clear); Tube # EDTA
[2022-05-19 15:58] LABS: BF Segmented Neutrophils 9 %; Cell Count Non Hematic 56 %; Eosinophils 1 %; Lymphocytes 34 %
[2022-05-19] MEDS ORDERED: Vancomycin HCl 500 MG in Sodium Chloride 0.9% 100 ML IVPB SCH (17:00)
[2022-05-19] MEDS: Amlodipine 10 MG TAB PO SCH (21:13)
[2022-05-20] MEDS: Meropenem 500 MG in Sodium Chloride 0.9% 100 ML IVPB SCH (05:36)
[2022-05-20] MEDS: Levothyroxine Sodium 100 MCG TAB PO SCH (05:37)
[2022-05-20] MEDS: Aspirin 81 mg Enteric Coated Tablet PO SCH (09:07)
[2022-05-20] MEDS: Folic Acid/Vit B Comp W-C PO SCH (09:07)
[2022-05-20] MEDS: hydrALAZINE 25 MG TAB PO SCH ×3 (09:07→20:33)
[2022-05-20] MEDS: Metoprolol Tartrate 25 MG TAB PO SCH ×2 (09:07→20:33)
[2022-05-20] MEDS: Amlodipine 10 MG TAB PO SCH (20:32)
[2022-05-21] MEDS: Levothyroxine Sodium 100 MCG TAB PO SCH (06:15)
[2022-05-21 06:42] LABS: #Basophils 0.1 thou/uL (0.0-0.2); #Eosinphils 1.5 thou/uL (0.0-0.7); #Lymphocytes 1.3 thou/uL (1.20-3.40); #Monocytes 0.9 thou/uL (0.11-0.59); #Neutrophils 3.2 thou/uL (1.40-6.50); %Basophils 0.8 % (0.0-1.0); %Eosinophils 21.5 % (0.0-10.0); %Lymphocytes 19.2 % (21.0-51.0); %Neutrophils 45.5 % (42.0-75.0); Hemoglobin 9.7 g/dL (12.0-16.0); Mean Corpuscular HGB CONC 32.2 g/dL (32.0-36.0); Mean Corpuscular Hemoglobin 33.6 pg (27.0-31.0); Mean Platelet Volume 6.9 fL (7.4-10.4); Platelet Count 119 10x3/uL (130-400); RBC Distribution Width 14.9 % (11.5-14.5); Red Blood Cell (RBC) Count 2.88 mill/uL (4.20-5.40)
[2022-05-21 06:56] LABS: Anion Gap 13 mmol/L (10-20); BUN (Urea Nitrogen) 31 mg/dL (9.8-20.1); Calc. Creatinine Clearance 11 mL/min (70-130); Calcium 9.6 mg/dL (7.8-10.44); Carbon Dioxide 26 mmol/L (22-29); Chloride 100 mmol/L (98-107); Estimated GFR 9; Glucose 81 mg/dL (70-105); Potassium 3.9 mmol/L (3.5-5.1); Sodium 135 mmol/L (136-145)
[2022-05-21] MEDS: Folic Acid/Vit B Comp W-C PO SCH (08:52)
[2022-05-21] MEDS: Metoprolol Tartrate 25 MG TAB PO SCH ×2 (08:52→20:27)
[2022-05-21] MEDS: Aspirin 81 mg Enteric Coated Tablet PO SCH (08:52)
[2022-05-21] MEDS: hydrALAZINE 25 MG TAB PO SCH ×3 (08:52→20:27)
[2022-05-21] MEDS: Amlodipine 10 MG TAB PO SCH (20:28)
[2022-05-22] MEDS: Levothyroxine Sodium 100 MCG TAB PO SCH (05:23)
[2022-05-22 07:22] LABS: #Basophils 0.1 thou/uL (0.0-0.2); #Eosinphils 1.3 thou/uL (0.0-0.7); #Lymphocytes 1.5 thou/uL (1.20-3.40); #Monocytes 0.8 thou/uL (0.11-0.59); #Neutrophils 2.7 thou/uL (1.40-6.50); %Basophils 0.9 % (0.0-1.0); %Eosinophils 20.3 % (0.0-10.0); %Lymphocytes 24.3 % (21.0-51.0); %Monocytes 11.9 % (0.0-10.0); %Neutrophils 42.6 % (42.0-75.0); Hemoglobin 9.6 g/dL (12.0-16.0); Mean Corpuscular Hemoglobin 33.3 pg (27.0-31.0); Mean Platelet Volume 7.1 fL (7.4-10.4); Platelet Count 108 10x3/uL (130-400); RBC Distribution Width 14.8 % (11.5-14.5); Red Blood Cell (RBC) Count 2.89 mill/uL (4.20-5.40); White Blood Cell (WBC) Count 6.3 10x3/uL (4.8-10.8)
[2022-05-22 07:35] LABS: Anion Gap 11 mmol/L (10-20); BUN (Urea Nitrogen) 17 mg/dL (9.8-20.1); Calc. Creatinine Clearance 18 mL/min (70-130); Calcium 8.6 mg/dL (7.8-10.44); Carbon Dioxide 28 mmol/L (22-29); Chloride 100 mmol/L (98-107); Estimated GFR 17; Glucose 73 mg/dL (70-105); Sodium 135 mmol/L (136-145)
[2022-05-22 07:37] LABS: Vancomycin, Random 14.7 ug/mL (See Comment)
[2022-05-22] MEDS: Metoprolol Tartrate 25 MG TAB PO SCH ×2 (08:39→21:10)
[2022-05-22] MEDS: Aspirin 81 mg Enteric Coated Tablet PO SCH (08:39)
[2022-05-22] MEDS: Folic Acid/Vit B Comp W-C PO SCH (08:39)
[2022-05-22] MEDS: hydrALAZINE 25 MG TAB PO SCH ×3 (08:39→21:11)
[2022-05-22] MEDS ORDERED: Lidocaine 1% w/Epinephrine 1:100K 20 ML VIAL ONE (09:35)
[2022-05-22] MEDS: Amlodipine 10 MG TAB PO SCH (21:10)
[2022-05-23] MEDS: Levothyroxine Sodium 100 MCG TAB PO SCH (05:39)
[2022-05-23 07:51] LABS: Vancomycin, Random 13.8 ug/mL (See Comment)
[2022-05-23 08:17] LABS: Anion Gap 12 mmol/L (10-20); BUN (Urea Nitrogen) 27 mg/dL (9.8-20.1); Calc. Creatinine Clearance 11 mL/min (70-130); Calcium 9.2 mg/dL (7.8-10.44); Carbon Dioxide 26 mmol/L (22-29); Chloride 99 mmol/L (98-107); Estimated GFR 10; Glucose 101 mg/dL (70-105); Potassium 4.5 mmol/L (3.5-5.1); Sodium 132 mmol/L (136-145)
[2022-05-23] MEDS: Aspirin 81 mg Enteric Coated Tablet PO SCH (09:13)
[2022-05-23] MEDS: hydrALAZINE 25 MG TAB PO SCH ×3 (10:05→20:46)
[2022-05-23] MEDS: Metoprolol Tartrate 25 MG TAB PO SCH ×2 (10:05→20:46)
[2022-05-23] MEDS: Folic Acid/Vit B Comp W-C PO SCH (10:05)
[2022-05-23 13:17] LABS: Fungus Stain Final report (.)
[2022-05-23] MEDS ORDERED: Ropivacaine 0.5% HCl/PF (150 MG/30 ML VIAL) ONE (13:49)
[2022-05-23] MEDS ORDERED: Lidocaine 2% PF 5 ML VIAL ONE (14:35)
[2022-05-23] MEDS ORDERED: Bupivacaine/Epinephrine 0.25% 30 ML VIAL ONE (14:35)
[2022-05-23] MEDS ORDERED: Heparin 5,000 UNITS/ML VIAL ONE (14:37)
[2022-05-23] MEDS ORDERED: Lidocaine 1% (PF) 30 ML VIAL ONE (14:56)
[2022-05-23] MEDS ORDERED: Morphine 4 MG/ML VIAL ONE (15:01)
[2022-05-23] MEDS ORDERED: Heparin 10,000 UNITS/ 10 ML VIAL ONE (15:09)
[2022-05-23] MEDS ORDERED: Sodium Chloride 0.9% 0 ML ONE (15:20)
[2022-05-23] MEDS ORDERED: CEFAZOLIN 2 GM VIAL ONE (15:20)
[2022-05-23] MEDS ORDERED: PROPOFOL 200 MG/20 ML VIAL ONE (15:43)
[2022-05-23] MEDS ORDERED: Lidocaine 1% PF 5 ML VIAL ONE (15:43)
[2022-05-23] MEDS ORDERED: Dexamethasone 20 MG/5 ML VIAL ONE (15:43)
[2022-05-23] MEDS ORDERED: Ondansetron PF 4 MG/2 ML Vial ONE (15:43)
[2022-05-23] MEDS: Amlodipine 10 MG TAB PO SCH (20:46)
[2022-05-24] MEDS: Levothyroxine Sodium 100 MCG TAB PO SCH (05:48)
[2022-05-24 07:29] LABS: Vancomycin, Random 12.2 ug/mL (See Comment)
[2022-05-24] MEDS: Aspirin 81 mg Enteric Coated Tablet PO SCH (09:12)
[2022-05-24] MEDS: hydrALAZINE 25 MG TAB PO SCH ×3 (09:12→20:29)
[2022-05-24] MEDS: Metoprolol Tartrate 25 MG TAB PO SCH ×2 (09:12→20:30)
[2022-05-24] MEDS: Folic Acid/Vit B Comp W-C PO SCH (09:12)
[2022-05-24] MEDS ORDERED: Vancomycin HCl 750 MG in Sodium Chloride 0.9% 250 ML 250 ML IVPB SCH (17:00)
[2022-05-24] MEDS: Amlodipine 10 MG TAB PO SCH (20:29)
[2022-05-25] MEDS: Metoprolol Tartrate 25 MG TAB PO SCH ×2 (05:04→21:47)
[2022-05-25] MEDS: Levothyroxine Sodium 100 MCG TAB PO SCH (05:04)
[2022-05-25] MEDS ORDERED: CEFAZOLIN 2 GM in Sodium Chloride 0.9% 100 ML IVPB SCH (06:00)
[2022-05-25 06:30] LABS: Anion Gap 11 mmol/L (10-20); BUN (Urea Nitrogen) 31 mg/dL (9.8-20.1); Calc. Creatinine Clearance 14 mL/min (70-130); Calcium 9.1 mg/dL (7.8-10.44); Carbon Dioxide 29 mmol/L (22-29); Chloride 103 mmol/L (98-107); Estimated GFR 13; Glucose 88 mg/dL (70-105); Potassium 4.2 mmol/L (3.5-5.1); Sodium 139 mmol/L (136-145)
[2022-05-25] MEDS: Aspirin 81 mg Enteric Coated Tablet PO SCH (09:30)
[2022-05-25] MEDS: hydrALAZINE 25 MG TAB PO SCH ×3 (09:30→21:46)
[2022-05-25] MEDS: Folic Acid/Vit B Comp W-C PO SCH (09:48)
[2022-05-25] MEDS ORDERED: Protamine Sulfate 50 MG/5 ML VIAL ONE (14:13)
[2022-05-25] MEDS ORDERED: Heparin 5,000 UNITS/ML VIAL ONE (14:13)
[2022-05-25] MEDS ORDERED: Bupivacaine HCl 0.5%/Epinephrine 1:200,000/PF 30 ml Vial ONE (14:13)
[2022-05-25] MEDS ORDERED: Lidocaine 2% PF 5 ML VIAL ONE (14:13)
[2022-05-25] MEDS ORDERED: fentaNYL PF 100 MCG/2 ML SYRINGE ONE (14:16)
[2022-05-25] MEDS ORDERED: Sodium Chloride 0.9% 100 ML ONE (14:30)
[2022-05-25] MEDS ORDERED: CEFAZOLIN 2 GM VIAL ONE (14:30)
[2022-05-25] MEDS ORDERED: Ondansetron PF 4 MG/2 ML Vial ONE (14:40)
[2022-05-25] MEDS ORDERED: PROPOFOL 200 MG/20 ML VIAL ONE (14:40)
[2022-05-25] MEDS ORDERED: ePHEDrine 50 MG/ML VIAL ONE (14:40)
[2022-05-25] MEDS ORDERED: Ondansetron HCl/PF 4 MG/2 ML Vial IVP PRN (16:00)
[2022-05-25] MEDS ORDERED: Promethazine HCl 25 MG/ML VIAL IM PRN (16:00)
[2022-05-25] MEDS ORDERED: traMADol HCl 50 MG TAB PO PRN (16:13)
[2022-05-25] MEDS: Amlodipine 10 MG TAB PO SCH (21:30)
[2022-05-26] MEDS: Levothyroxine Sodium 100 MCG TAB PO SCH (05:38)
[2022-05-26 07:53] LABS: Vancomycin, Random 20.8 ug/mL (See Comment)
[2022-05-26] MEDS: hydrALAZINE 10 MG TAB PO SCH ×2 (08:53→16:11)
[2022-05-26] MEDS: Aspirin 81 mg Enteric Coated Tablet PO SCH (08:53)
[2022-05-26] MEDS: Metoprolol Tartrate 25 MG TAB PO SCH (08:53)
[2022-05-26] MEDS: Folic Acid/Vit B Comp W-C PO SCH (08:53)
[2022-05-26] MEDS ORDERED: Heparin 10,000 UNITS/ 10 ML VIAL ONE (12:36)
[2022-05-26] MEDS ORDERED: Vancomycin HCl 250 MG in Sodium Chloride 0.9% 100 ML IVPB SCH (17:00)
[2022-05-26 19:13] VITALS: BP 125/73; TEMP 98.2
== END 2022-05-26 20:30 | disposition home or self-care (01) | DRG 252 ==
LOC: T4-A 19:42
PROVIDERS: ADMIT Internal Medicine; ATTEND Family Medicine
PROC: 0W993ZZ Drainage of Right Pleural Cavity, Percutaneous Approach (ICD-10-PCS; 2022-05-19)
PROC: 0JPV3XZ Removal of Tunneled Vascular Access Device from Upper Extremity Subcutaneous Tissue and Fascia, Percutaneous Approach (ICD-10-PCS; 2022-05-22)
PROC: 05PYX3Z Removal of Infusion Device from Upper Vein, External Approach (ICD-10-PCS; 2022-05-22)
PROC: 0JH63XZ Insertion of Tunneled Vascular Access Device into Chest Subcutaneous Tissue and Fascia, Percutaneous Approach (ICD-10-PCS; 2022-05-23)
PROC: 02HV33Z Insertion of Infusion Device into Superior Vena Cava, Percutaneous Approach (ICD-10-PCS; 2022-05-23)
PROC: B5181ZA Fluoroscopy of Superior Vena Cava using Low Osmolar Contrast, Guidance (ICD-10-PCS; 2022-05-23)
PROC: B548ZZA Ultrasonography of Superior Vena Cava, Guidance (ICD-10-PCS; 2022-05-23)
PROC: 05CD0ZZ Extirpation of Matter from Right Cephalic Vein, Open Approach (ICD-10-PCS; principal; 2022-05-25)
PROC: 031B0ZF Bypass Right Radial Artery to Lower Arm Vein, Open Approach (ICD-10-PCS; 2022-05-25)
PROC: 5A1D70Z Performance of Urinary Filtration, Intermittent, Less than 6 Hours Per Day (ICD-10-PCS; 2022-05-26)
DX: T82.7XXA Infection and inflammatory reaction due to other cardiac and vascular devices, implants and grafts, initial encounter (principal); A41.02 Sepsis due to Methicillin resistant Staphylococcus aureus; J96.01 Acute respiratory failure with hypoxia; N18.6 End stage renal disease; I13.2 Hypertensive heart and chronic kidney disease with heart failure and with stage 5 chronic kidney disease, or end stage renal disease; R64 Cachexia; N25.81 Secondary hyperparathyroidism of renal origin; I50.30 Unspecified diastolic (congestive) heart failure; E03.9 Hypothyroidism, unspecified; D63.1 Anemia in chronic kidney disease; E88.09 Other disorders of plasma-protein metabolism, not elsewhere classified; Y83.8 Other surgical procedures as the cause of abnormal reaction of the patient, or of later complication, without mention of misadventure at the time of the procedure; Z20.822 Contact with and (suspected) exposure to COVID-19; Z79.82 Long term (current) use of aspirin; Z79.899 Other long term (current) drug therapy; Z99.2 Dependence on renal dialysis; Z90.49 Acquired absence of other specified parts of digestive tract; Z90.710 Acquired absence of both cervix and uterus; Z98.890 Other specified postprocedural states
CPT/HCPCS: 36415; 71045; 80048; 80053; 80202; 82150; 82945; 83615; 84145; 84157; 84484; 85025; 85060; 87040; 87070; 87081; 87116; 87205; 87206; 87811; 88112; 88305; 89051; 90935; 93306; 93970; C1751; C1752; C1776; G0257; J1100; J1642; J1644; J2001; J2185; J2270; J2405; J2704; J2720; J2795; J3370; J3371; J3490; J7050; U0003; U0005